=== PATIENT | female | born 1950 | race Caucasian/White ===

== ENCOUNTER 2020-11-01 12:31 | Outpatient (REF) | payer MEDICARE, SELFPAY ==
--- NOTE | ~2020-11-01 | XR_ITS ---
EXAMINATION: XR CHEST CLINICAL INFORMATION: R05 - Cough COMPARISON: Chest radiographs 07/28/2018, 07/16/2018 TECHNIQUE: 2 views of the chest were obtained. FINDINGS: There is subtle airspace opacity right upper perihilar region suspicious for early infiltrate. There is no lobar or segmental airspace consolidation. The heart is normal in size and the vascularity is normal. The costophrenic sulci are clear. No effusion. The hilar and mediastinal contours are normal. No visible acute bony abnormality. XR/XR chest 2V IMPRESSION: Subtle airspace opacity upper right perihilar region suspicious for early infiltrate. No effusion.
[2020-11-01 14:03] LABS: Basophils Percent Auto 0.2 % (0-2); Hematocrit 40.7 % (37-47); Hemoglobin 13.4 g/dl (12.0-16.0); Imm Gran Abs Auto 0.05 X10*3/uL (0.00-0.03); Imm Gran Pct Auto 0.5 % (0.0-0.4); Lymphocytes Absolute Auto 0.4 X10*3/uL (1.2-4.9); Lymphocytes Percent Auto 4.6 % (20-40); MANUAL DIFF FLAG SCAN; Mean Corpuscular HGB Conc 32.9 g/dl (31.0-35.0); Mean Corpuscular Volume 97.1 fL (80-98); Mean Platelet Volume 8.6 fL (9.4-12.3); Monocytes Absolute Auto 0.4 X10*3/uL (0.1-1.2); Monocytes Percent Auto 3.8 % (2-11); Neutrophils Absolute Auto 8.8 X10*3/uL (2.0-8.3); Neutrophils Percent Auto 90.9 % (45-73); Platelet Count 422 X10*3/uL (160-400); Red Blood Count 4.19 X10*6/uL (4.20-5.50); Red Cell Distribution Width 12.6 % (11.0-16.0); SCAN SMEAR FLAG 1; White Blood Count 9.7 X10*3/uL (4.8-10.8)
[2020-11-01 14:23] LABS: SLIDE REVIEW VERIFIED
[2020-11-01 14:28] LABS: D Dimer < 200 NG/ML
[2020-11-01 14:35] LABS: Alanine Aminotransferase 18 U/L (0-31); Albumin Level 4.5 g/dL (3.5-5.0); Alkaline Phosphatase 64 U/L (39-117); Anion Gap 17 (12-20); Aspartate Amino Transferase 18 U/L (5-31); Bilirubin Total 0.2 mg/dL (0.0-1.0); Blood Urea Nitrogen 11 mg/dL (9-16); Calcium 9.7 mg/dL (8.4-10.2); Carbon Dioxide 24 mmol/L (22-29); Chloride 102 mmol/L (96-108); Estimated Glomerular Filt Rate > 60; Glucose Random 197 mg/dL (60-115); Potassium 4.6 mmol/L (3.3-5.1); Sodium 138 mmol/L (135-145); Total Protein 7.1 g/dL (6.5-8.0)
== END 2020-11-01 12:32 | disposition home or self-care (01) ==
LOC: HO.WFDLDS 12:31
PROVIDERS: Visit Provider Family Medicine
DX: Z00.00 Encounter for general adult medical examination without abnormal findings (principal); Z20.822 Contact with and (suspected) exposure to COVID-19; R06.02 Shortness of breath; R05 Cough
CPT/HCPCS: 36415; 71046; 80053; 85025; 85379; U0003; U0005

== ENCOUNTER 2021-07-11 16:16 | Outpatient (REF) | payer MEDICARE, SELFPAY ==
--- NOTE | ~2021-07-11 | XR_ITS ---
EXAMINATION: XR CHEST 2 VIEWS CLINICAL INFORMATION: COPD. COMPARISON: Prior chest radiographs, most recently 11/01/2020; prior chest CT examinations, most recently 05/26/2018.. TECHNIQUE: Frontal and lateral views of the chest were obtained. FINDINGS: The heart, great vessels, pulmonary vasculature and mediastinum are normal. A left pericardial fat pad is redemonstrated. The lungs show no focal infiltrate, effusion or pneumothorax. There is no acute osseous abnormality. There are right upper quadrant surgical clips. XR/XR chest 2V IMPRESSION: No active cardiopulmonary disease.
== END 2021-07-11 16:17 | disposition home or self-care (01) ==
LOC: HO.XRAY 16:16
PROVIDERS: Absent Provider Family Medicine; PCP Family Medicine; Visit Provider Hospitalist
DX: J44.9 Chronic obstructive pulmonary disease, unspecified (principal); R06.02 Shortness of breath
CPT/HCPCS: 71046

== ENCOUNTER 2021-07-13 19:19 | Emergency (ER) | payer MEDICARE, SELFPAY ==
--- NOTE | 2021-07-13 | ECG_ITS ---
Test Reason : tachycardia Blood Pressure : / mmHG Vent. Rate : 119 BPM Atrial Rate : 119 BPM P-R Int : 140 ms QRS Dur : 076 ms QT Int : 312 ms P-R-T Axes : 062 010 052 degrees QTc Int : 438 ms Sinus tachycardia with occasional Premature ventricular complexes Possible Inferior infarct , age undetermined Cannot rule out Anterior infarct , age undetermined Abnormal ECG No previous ECGs available Referred By: Generic ED Physician Electronically Signed By:DMOENIC RODRIGEZ
--- NOTE | ~2021-07-13 | XR_ITS ---
EXAMINATION: XR CHEST CLINICAL INFORMATION: Fever. COMPARISON: Chest regressed dated 07/11/2021. TECHNIQUE: 2 views of the chest were obtained. FINDINGS: No airspace consolidation. No pleural effusion or pneumothorax. Stable cardiomediastinal silhouette. Right upper quadrant surgical clips. XR/XR chest 2V IMPRESSION: No acute cardiopulmonary findings.
[2021-07-13 19:43] VITALS: BP 150/90; PULSE 124; RESP 20; TEMP 37.2; O2SAT 97; BMI 23.0
[2021-07-13 20:49] LABS: COVID-19 Test Negative (Negative); IDNOW Serial# 08D9AD1C; Influenza A Negative (Negative); Influenza B2 Negative (Negative)
--- NOTE | 2021-07-13 20:54 | ED.FEVER ---
HPI - Fever General Chief Complaint: Fever Stated Complaint: fever Time Seen by Provider: 07/13/21 20:34 Source: patient and family Mode of arrival: ambulatory Limitations: no limitations History of Present Illness HPI Narrative: 70 yo female with hx of bronchitis since 06/18 was on 2 rounds of 10 days of prednisone and 2 courses of zpak she notes tonight she felt a head carmona as well as her heart racing, had a chest xray on which was normal. She finished her zpak yesterday. She checked her temp it was 100.3. This did happen after she completed a duoneb. MD elicited complaint: fever Pertinent past history: other (on 2 courses of 10 days of prednisone) Onset (ago): hour(s) (1) Context: recent antibiotic use and on immunosuppressant(s) Exacerbating factors: other (duoneb) Relieving factors: other (did take advil about almost 4 hours ago ) Associated symptoms: headache and other (head carmona facial flushing heart racing) Treatments prior to arrival fever: other (duoneb, advil) Related Data Home Medications Medication Instructions Recorded Confirmed albuterol sulfate 90 mcg/actuation INHALATION 01/31/20 aerosol inhaler cetirizine 10 mg capsule (Zyrtec) mg PO DAILY cap 01/31/20 fluticasone propionate 110 2 puff INHALATION BID 07/11/21 mcg/actuation HFA aerosol inhaler (Flovent HFA) Previous Rx's Medication Instructions Recorded ipratropium 0.5 mg-albuterol 3 mg 3 ml INHALATION Q4-6H PRN #180 ml 06/26/21 (2.5 mg base)/3 mL nebulization soln Allergies Allergy/AdvReac Type Severity Reaction Status Date / Time No Known Allergies Allergy Verified 07/11/21 15:36 [No Known Allergies*] Cats Allergy Mild aggrevates Uncoded 07/11/21 15:36 asthma Dust Allergy Mild cogestion Uncoded 07/11/21 15:36 Mold Allergy Mild allergy Uncoded 07/11/21 15:36 Trees Allergy Mild asthma Uncoded 07/11/21 15:36 aggravated Review of Systems Review of Systems: Constitutional : No Weight loss, pos Fever, No Chills, No Fatigue, No Malaise ENT/Mouth : No sore throat, No Rhinorrhea Eyes: No Eye Pain, No Swelling, No Redness Cardiovascular : No Chest Pain, No SOB, No Dyspnea on Exertion, No Orthopnea, No Edema, pos Palpitations Respiratory : No Cough, No Sputum, No Wheezing Gastrointestinal : No Nausea, No Vomiting, No Diarrhea, No Constipation, No abdominal Pain, No Hematochezia, No Melena Genitourinary : No Dysuria, No Urinary Frequency, No Hematuria, Musculoskeletal : No joint pain, No Myalgias, No Joint Swelling Skin : No Skin Lesions, No rash, pos facial flushing Neuro : No Weakness, No Numbness, No Dizziness, pos Headache Psych : No Anxiety/Panic, No Depression Heme/Lymph: No Bruising, No Bleeding,No Lymphadenopathy Endocrine : No Polyuria, No Polydipsia All other systems reviewed and are negative PMFSH Past Medical History Attestation statement: The following information was validated with the patient. Medical History Chronic GERD Hypertension Seasonal allergies Social History Social History Housing: House Patient Tobacco Use Status: Never used Tobacco Advance Directives: No Advance Directives Information Provided: No Current occupational status: retired Physical Exam Vital Signs: Vital Signs: Last Vital Signs Temp 98.3 F 07/13/21 21:17 Pulse 92 07/13/21 21:17 Resp 16 07/13/21 21:17 BP 150/79 H 07/13/21 21:17 Pulse Ox 95 07/13/21 21:17 BMI result Body Mass Index 23.0 Appearance: Alert. Oriented X3. No acute distress. Anxious Eyes: Pupils equal, round and reactive to light. ENT: Pharynx normal. Neck: Normal inspection. Neck supple. CVS: tachycardic heart rate and rhythm. Pulses normal. Respiratory: No respiratory distress. Breath sounds normal. Abdomen: Soft and non-tender. Skin: Skin warm and dry. Normal skin color. Normal skin turgor. Extremities: No lower extremity edema. No calf ttp Neuro: Oriented X 3. No motor deficit. No sensory deficit. Course Course Course Narrative: negative workup in the ED neg WBC count, neg CRP neg CXR and UA stable for DC feels much better MDM - Fever MDM Narrative Medical decision making narrative: 70 yo female hx of bronchitis and HTN just completed two rounds of 10 day prednisone and zpak for bronchitis by PCP since 06/18 with some relief tonight after duoneb felt head carmona, facial flushing, checked temp 100.3. Had normal CXR. Notes that she has not had a productive cough nor did she have fevers during the treatment ?response to neb vs prednisone. At this time will need labs, EKG, CXR, IVF, flu/COVID swab. Dispo per results and findings. Possible infection vs medication reaction. Lab Data Result diagrams: 07/13/21 21:15 07/13/21 21:15 Labs: Lab Results 07/13/21 07/13/21 07/13/21 Range/Units 20:04 20:04 21:15 WBC 8.8 (4.8-10.8) X10*3/uL RBC 4.32 (4.20-5.50) X10*6/uL Hgb 14.2 (12.0-16.0) g/dl Hct 42.7 (37.0-47.0) % MCV 98.8 H (80.0-98.0) fL MCH 32.9 (27.0-33.0) pg MCHC 33.3 (31.0-35.0) g/dl RDW 11.9 (11.0-16.0) % Plt Count 327 (160-400) X10*3/uL MPV 8.3 L (9.4-12.3) fL Immature Gran % (Auto) 0.7 H (0.0-0.4) % Neut % (Auto) 79.2 H (45-73) % Lymph % (Auto) 12.7 L (20-40) % [place] % (Auto) 7.3 (2-11) % Eos % (Auto) 0.0 (0-4) % Baso % (Auto) 0.1 (0-2) % Lymph # (Auto) 1.1 L (1.2-4.9) X10*3/uL [place] # (Auto) 0.6 (0.1-1.2) X10*3/uL Eos # (Auto) 0.0 (0.0-0.4) X10*3/uL Baso # (Auto) 0.0 (0.0-0.2) X10*3/uL Abs Immat Gran (auto) 0.06 H (0.00-0.03) X10*3/uL Absolute Neuts (auto) 7.0 (2.0-8.3) x10*3/uL Absolute Nucleated RBC 0.000 (0.0-0.012) X10*3/uL Nucleated RBC % (auto) 0.0 (0.0-0.2) /100WBC Sodium (135-145) mmol/L Potassium (3.3-5.1) mmol/L Chloride (96-108) mmol/L Carbon Dioxide (22-29) mmol/L Anion Gap (12-20) BUN (9-16) mg/dL Creatinine (0.5-1.4) mg/dL Estim Creat Clear Calc Estimated GFR Random Glucose (60-115) mg/dL Lactic Acid (0.5-2.0) mmol/L Calcium (8.4-10.2) mg/dL Magnesium (1.6-2.6) mg/dL Total Bilirubin (0.0-1.0) mg/dL Direct Bilirubin (0.0-0.5) mg/dL AST (5-31) U/L ALT (0-31) U/L Alkaline Phosphatase (39-117) U/L Troponin I High Sens (<3.5-17.0) ng/L C-Reactive Protein (< or = 0.50) mg/dL Total Protein (6.5-8.0) g/dL Albumin (3.5-5.0) g/dL Urine Color Urine Appearance Urine pH (5.0-8.0) Ur Specific Cha[place]in (1.005-1.025) Urine Protein (NEG-TRACE) MG/DL Urine Glucose (UA) (NEG) MG/DL Urine Ketones (NEG) MG/DL Urine Blood (NEG) Urine Nitrite (NEG) Ur Leukocyte Esterase (NEG) Urine RBC (0) /HPF Urine WBC (0-4) /HPF Ur Squamous Epith Cells /LPF Urine Bacteria /LPF COVID-19 (KAREN) Negative (Negative) COVID-19 Clin Com See Note Influenza Type A (YAHIR) Negative (Negative) Influenza Type B (YAHIR) Negative (Negative) Influenza A & B Note See Note 03/07/13/21 07/13/21 Range/Units 21:15 21:15 21:15 WBC (4.8-10.8) X10*3/uL RBC (4.20-5.50) X10*6/uL Hgb (12.0-16.0) g/dl Hct (37.0-47.0) % MCV (80.0-98.0) fL MCH (27.0-33.0) pg MCHC (31.0-35.0) g/dl RDW (11.0-16.0) % Plt Count (160-400) X10*3/uL MPV (9.4-12.3) fL Immature Gran % (Auto) (0.0-0.4) % Neut % (Auto) (45-73) % Lymph % (Auto) (20-40) % [place] % (Auto) (2-11) % Eos % (Auto) (0-4) % Baso % (Auto) (0-2) % Lymph # (Auto) (1.2-4.9) X10*3/uL [place] # (Auto) (0.1-1.2) X10*3/uL Eos # (Auto) (0.0-0.4) X10*3/uL Baso # (Auto) (0.0-0.2) X10*3/uL Abs Immat Gran (auto) (0.00-0.03) X10*3/uL Absolute Neuts (auto) (2.0-8.3) x10*3/uL Absolute Nucleated RBC (0.0-0.012) X10*3/uL Nucleated RBC % (auto) (0.0-0.2) /100WBC Sodium 137 (135-145) mmol/L Potassium 4.9 (3.3-5.1) mmol/L Chloride 99 (96-108) mmol/L Carbon Dioxide 27 (22-29) mmol/L Anion Gap 16 (12-20) BUN 15 (9-16) mg/dL Creatinine 0.76 (0.5-1.4) mg/dL Estim Creat Clear Calc 56.1 Estimated GFR > 60 Random Glucose 106 (60-115) mg/dL Lactic Acid 1.4 (0.5-2.0) mmol/L Calcium 9.9 (8.4-10.2) mg/dL Magnesium 2.3 (1.6-2.6) mg/dL Total Bilirubin 0.3 (0.0-1.0) mg/dL Direct Bilirubin < 0.2 (0.0-0.5) mg/dL AST 26 D (5-31) U/L ALT 35 H (0-31) U/L Alkaline Phosphatase 43 D (39-117) U/L Troponin I High Sens < 3.5 (<3.5-17.0) ng/L C-Reactive Protein 0.05 (< or = 0.50) mg/dL Total Protein 7.2 (6.5-8.0) g/dL Albumin 4.8 (3.5-5.0) g/dL Urine Color Urine Appearance Urine pH (5.0-8.0) Ur Specific [place] (1.005-1.025) Urine Protein (NEG-TRACE) MG/DL Urine Glucose (UA) (NEG) MG/DL Urine Ketones (NEG) MG/DL Urine Blood (NEG) Urine Nitrite (NEG) Ur Leukocyte Esterase (NEG) Urine RBC (0) /HPF Urine WBC (0-4) /HPF Ur Squamous Epith Cells /LPF Urine Bacteria /LPF COVID-19 (KAREN) (Negative) COVID-19 Clin Com Influenza Type A (YAHIR) (Negative) Influenza Type B (YAHIR) (Negative) Influenza A & B Note 07/13/21 Range/Units 21:15 WBC (4.8-10.8) X10*3/uL RBC (4.20-5.50) X10*6/uL Hgb (12.0-16.0) g/dl Hct (37.0-47.0) % MCV (80.0-98.0) fL MCH (27.0-33.0) pg MCHC (31.0-35.0) g/dl RDW (11.0-16.0) % Plt Count (160-400) X10*3/uL MPV (9.4-12.3) fL Immature Gran % (Auto) (0.0-0.4) % Neut % (Auto) (45-73) % Lymph % (Auto) (20-40) % [place] % (Auto) (2-11) % Eos % (Auto) (0-4) % Baso % (Auto) (0-2) % Lymph # (Auto) (1.2-4.9) X10*3/uL [place] # (Auto) (0.1-1.2) X10*3/uL Eos # (Auto) (0.0-0.4) X10*3/uL Baso # (Auto) (0.0-0.2) X10*3/uL Abs Immat Gran (auto) (0.00-0.03) X10*3/uL Absolute Neuts (auto) (2.0-8.3) x10*3/uL Absolute Nucleated RBC (0.0-0.012) X10*3/uL Nucleated RBC % (auto) (0.0-0.2) /100WBC Sodium (135-145) mmol/L Potassium (3.3-5.1) mmol/L Chloride (96-108) mmol/L Carbon Dioxide (22-29) mmol/L Anion Gap (12-20) BUN (9-16) mg/dL Creatinine (0.5-1.4) mg/dL Estim Creat Clear Calc Estimated GFR Random Glucose (60-115) mg/dL Lactic Acid (0.5-2.0) mmol/L Calcium (8.4-10.2) mg/dL Magnesium (1.6-2.6) mg/dL Total Bilirubin (0.0-1.0) mg/dL Direct Bilirubin (0.0-0.5) mg/dL AST (5-31) U/L ALT (0-31) U/L Alkaline Phosphatase (39-117) U/L Troponin I High Sens (<3.5-17.0) ng/L C-Reactive Protein (< or = 0.50) mg/dL Total Protein (6.5-8.0) g/dL Albumin (3.5-5.0) g/dL Urine Color YELLOW Urine Appearance CLEAR Urine pH 6.0 (5.0-8.0) Ur Specific [place] 1.010 (1.005-1.025) Urine Protein NEG (NEG-TRACE) MG/DL Urine Glucose (UA) NEG (NEG) MG/DL Urine Ketones NEG (NEG) MG/DL Urine Blood TRACE (NEG) Urine Nitrite NEG (NEG) Ur Leukocyte Esterase NEG (NEG) Urine RBC 1-4 (0) /HPF Urine WBC 0 (0-4) /HPF Ur Squamous Epith Cells TRACE /LPF Urine Bacteria NONE /LPF COVID-19 (KAREN) (Negative) COVID-19 Clin Com Influenza Type A (YAHIR) (Negative) Influenza Type B (YAHIR) (Negative) Influenza A & B Note ECG Data ECG #1: Attestation: I personally reviewed and interpreted this ECG as follows: ECG interpretation date: 07/13/21 ECG interpretation time: 21:07 Interpretation: Rate: 119 Rhythm: sinus tachycardia with occ PVCs Sparks: left Normal P waves. Normal VENITA. Normal QRS complex. ST T wave : inverted V1 t wave, no MEMO qTC: normal prior studies: no acute ischemia The study has been interpreted contemporaneously by me. Discharge Plan Discharge Clinical Impression: Fever Qualifiers: Fever type: unspecified Qualified Code(s): R50.9 - Fever, unspecified Patient Disposition: Home, Self-Care Instructions: Fever in Adults (ED) Additional Instructions: return to ED for any worsening symptoms or concerns chest xray, WBC, urine, CRP all negative, you do have blood cultures pending. this was possibly a combination of recent medications used. please follow up with your medical support assistant. Prescriptions: No Action ipratropium-albuterol 0.5 mg-3 mg(2.5 mg base)/3 mL solution for nebulization 3 ml inhalation Q4-6H PRN (Reason: shortness of breath or wheezing) Qty: 180 0RF albuterol sulfate 90 mcg/actuation HFA aerosol inhaler inhalation 0RF Zyrtec 10 mg capsule PO DAILY 0RF Flovent HFA 110 mcg/actuation HFA aerosol inhaler 2 puff inhalation BID 0RF
[2021-07-13 21:17] VITALS: BP 150/79; PULSE 92; RESP 16; TEMP 36.8; O2SAT 95
[2021-07-13 21:18] LABS: MANUAL DIFF FLAG NO
[2021-07-13 21:24] LABS: Appearance Urine CLEAR; Color Urine YELLOW; Glucose Urine UA NEG (NEG); Leukocyte Esterase Urine NEG (NEG); Nitrite Urine NEG (NEG); UACC Culture Trigger NO; Urine Blood TRACE (NEG); Urine Ketones NEG (NEG); Urine Protein NEG (NEG-TRACE)
[2021-07-13 21:32] LABS: Basophils Percent Auto 0.1 % (0-2); Hematocrit 42.7 % (37.0-47.0); Hemoglobin 14.2 g/dl (12.0-16.0); Imm Gran Abs Auto 0.06 X10*3/uL (0.00-0.03); Imm Gran Pct Auto 0.7 % (0.0-0.4); Lactic Acid 1.4 mmol/L (0.5-2.0); Lymphocytes Absolute Auto 1.1 X10*3/uL (1.2-4.9); Lymphocytes Percent Auto 12.7 % (20-40); Mean Corpuscular HGB Conc 33.3 g/dl (31.0-35.0); Mean Corpuscular Hemoglobin 32.9 pg (27.0-33.0); Mean Corpuscular Volume 98.8 fL (80.0-98.0); Mean Platelet Volume 8.3 fL (9.4-12.3); Monocytes Absolute Auto 0.6 X10*3/uL (0.1-1.2); Monocytes Percent Auto 7.3 % (2-11); Neutrophils Percent Auto 79.2 % (45-73); Platelet Count 327 X10*3/uL (160-400); Red Blood Count 4.32 X10*6/uL (4.20-5.50); Red Cell Distribution Width 11.9 % (11.0-16.0); White Blood Count 8.8 X10*3/uL (4.8-10.8)
[2021-07-13 21:36] LABS: Alanine Aminotransferase 35 U/L (0-31); Albumin Level 4.8 g/dL (3.5-5.0); Alkaline Phosphatase 43 U/L (39-117); Anion Gap 16 (12-20); Aspartate Amino Transferase 26 U/L (5-31); Bilirubin Direct < 0.2 mg/dL (0.0-0.5); Bilirubin Total 0.3 mg/dL (0.0-1.0); Blood Urea Nitrogen 15 mg/dL (9-16); C Reactive Protein 0.05 mg/dL (< or = 0.50); Calcium 9.9 mg/dL (8.4-10.2); Carbon Dioxide 27 mmol/L (22-29); Chloride 99 mmol/L (96-108); Creatinine Clr Calc Pharmacy 56.1; Estimated Glomerular Filt Rate > 60; Glucose Random 106 mg/dL (60-115); Magnesium 2.3 mg/dL (1.6-2.6); Potassium 4.9 mmol/L (3.3-5.1); Sodium 137 mmol/L (135-145); Total Protein 7.2 g/dL (6.5-8.0)
[2021-07-13 21:38] LABS: Troponin-I High Sensitivity < 3.5 ng/L (<3.5-17.0)
[2021-07-13 21:47] LABS: Squamous Epithelial Cell Urine TRACE /LPF; WBC Urine 0 /HPF (0-4)
[2021-07-13] MEDS: 0.9 % Sodium Chloride 1,000 ML 999 ML IV (21:55)
--- NOTE | 2021-07-13 22:37 | PC.NURSE ---
I assume nursing care of Callie on her arrival to bed 12 from the waiting room. She presents for evaluation of an episode of fever, facial flushing, feeling overheated and diaphoresis. She states the symptoms resolved while in the waiting room and I feel totally fine now. She is alert, oriented x 3, speech clear and appropriate, she makes eye contact with RN. Respirations are non-labored, she denies SOb, she speaks in full sentences, no cyanosis, room air sat's WNL. She denies any pain. She has ambulated to and from the bathroom independently and with steady gait and provided a UA without difficulty. IV access was obtained and IVF's were initiated. The pt has been discharged prior to the completion of NSbolus and states that she does not wish to wait for the 1L NS bolus to complete. She received approximately 500cc. She verbalized an understanding of all DC orders and ambulated out of the ED independently and with steady gait, with her .
== END 2021-07-13 22:42 | disposition home or self-care (01) ==
PROVIDERS: Emergency Provider Emergency Medicine; PCP Family Medicine
DX: R50.9 Fever, unspecified (principal); R00.0 Tachycardia, unspecified; I10 Essential (primary) hypertension; Z20.822 Contact with and (suspected) exposure to COVID-19
CPT/HCPCS: 36415; 71046; 80048; 80076; 81001; 83605; 83735; 84484; 85025; 86140; 87040; 87502; 87635; 93005; 96360; 99284; 99285

== ENCOUNTER 2021-12-17 14:28 | Outpatient (REF) | payer MEDICARE, SELFPAY ==
[2021-12-17 16:00] LABS: Influenza A PCR NEGATIVE (Negative); Influenza B PCR NEGATIVE (Negative); Resp Syncy Virus RNA Qual PCR NEGATIVE (Negative); SARS COV2 PCR INHOUSE NEGATIVE (Negative)
== END 2021-12-17 14:29 | disposition home or self-care (01) ==
LOC: HO.LNP 14:28
PROVIDERS: Visit Provider Nurse Practitioner Family
DX: Z20.822 Contact with and (suspected) exposure to COVID-19 (principal); R09.89 Other specified symptoms and signs involving the circulatory and respiratory systems
CPT/HCPCS: 0241U

== ENCOUNTER 2023-01-29 15:42 | Outpatient (AMB) | payer MEDICARE, SELFPAY ==
[2023-01-29 15:44] VITALS: BP 121/64; PULSE 93; O2SAT 99; BMI 21.5
--- NOTE | 2023-01-29 15:44 | A.OFFPC_ITS ---
Vital Signs 01/29/23 15:44 Height 5 ft 3 in Weight 121 lb 4 oz BMI 21.5 BP 121/64 Blood Pressure Location Lt brachial Position Sitting Pulse 93 Pulse Oximetry (%) 99 Oxygen Delivery Method Room Air Intake Visit Reasons: F/U HTN Intake Note: Patient is here to follow up on hypertension. Is last menstrual period known: Yes Allergies No Known Allergies [No Known Allergies*] Allergy (Verified 01/29/23 15:49) Cats Allergy (Mild, Uncoded 01/29/23 15:49) aggrevates asthma Dust Allergy (Mild, Uncoded 01/29/23 15:49) cogestion Mold Allergy (Mild, Uncoded 01/29/23 15:49) allergy Trees Allergy (Mild, Uncoded 01/29/23 15:49) asthma aggravated Tobacco use date assessed: 01/29/23 Fall risk assessment: No Falls in past year Last assessed Fall Risk: 01/29/23 Dental Screening Dental Screen Date: 01/29/23 Did you have a dental visit in the last 12 months?: Yes Did you have a dental problem in the last 6 months where you did not have access to dental care?: No Was dental information given to patient?: Patient has dentist HPI F/U HTN HPI Details 72 y/o female presents to f/u hypertensi on. Blood pressure today 121/64. She notes she continues walking and has lost a bit of weight. She has been seeing orthopedics for her shoulders. [facility] Medical History Seasonal allergies Chronic GERD Hypertension Surgical History S/P removal of right ovary History of removal of ovarian cyst History of appendectomy History of nasal surgery History of tonsillectomy History of bilateral tubal ligation History of cholecystectomy Family History Father CHF (congestive heart failure) Mother Kidney failure Brother COPD (chronic obstructive pulmonary disease) Social History Housing: House Alcohol intake: current Alcohol intake frequency: holidays/special occasions only Patient Tobacco Use Status: Never used Tobacco e-Cigarette/Vaping Use: Never Used Second Hand Smoke Exposure: No service: No Current occupational status: retired Current occupational exposures/hazards: No Cognitive needs: No Hearing needs: No Vision needs: No Questionnaire Thrive Questionnaire Date Thrive assessed: 04/30/22 SAMUEL-7 AMB Questionnaire SAMUEL-7 Date SAMUEL - 7 assessed: 04/30/22 Source: Developed by Drs. Jignesh Ford, Sunshine Min, Adis Lopez and colleagues, with an educational tigre from [employer]. Review of Systems Const Denies chills, Denies fatigue, Denies fever(s), Denies headache(s) and Denies weakness ENT Denies dizziness and Denies headache(s) Card Denies chest pain, Denies lightheadedness, Denies dyspnea and Denies other (Palpitations) Resp Denies cough, Denies dyspnea, Denies wheezing and Denies other ( shortness of breath) Musc Denies numbness and Denies tingling Neuro Denies dizziness, Denies headache(s), Denies numbness, Denies tingling, Denies paresthesias and Denies weakness Psych Denies anxiety and Denies depression Endo Denies fatigue Aller/Immun Denies wheezing Physical exam (Primary Care) Vital Signs: Last Vital Signs Pulse 93 01/29/23 15:44 BP 121/64 01/29/23 15:44 Pulse Ox 99 01/29/23 15:44 Oxygen Delivery Method Room Air 01/29/23 15:44 BMI result Body Mass Index 21.5 Tobacco/Smoking Status: Tobacco use Status Tobacco use date assessed 01/29/23 01/29/23 15:55 Patient Tobacco Use Status Never used Tobacco 01/29/23 15:45 e-Cigarette/Vaping Use Never Used 01/29/23 15:45 Thrive Assessment: Date of Thrive Assessment Date Thrive assessed 04/30/22 01/29/23 15:45 Const General: no acute distress and well developed Nutritional Appearance: well nourished Orientation/consciousness: patient oriented x3 HENMT Head: Yes normocephalic and Yes atraumatic Eyes General: appearance normal, both eyes and all related structures Pupils: Equal, round and reactive pupils present EOM: EOMs intact bilaterally Resp Effort & Inspection: normal respiratory effort Auscultation: clear to auscultation bilaterally Cardio Rate: regular rate Rhythm: regular rhythm Heart sounds: S1 normal heart sound present, S2 normal heart sound present, no gallops, no murmurs and no rubs Neuro General: patient oriented x3 and gait normal Cranial nerves: Yes Equal, round and reactive pupils present Psych Affect: normal affect Assessment and Plan Assessment & Plan (1) Hypertension: Code(s): I10 - Essential (primary) hypertension Qualifiers: Hypertension type: essential hypertension Qualified Code(s): I10 - Essential (primary) hypertension Plan: Blood?pressure?is?controlled.??Goal?is?less?than?140/90 Continue?diet?control (2) Asthma: Code(s): J45.909 - Unspecified asthma, uncomplicated Plan: Has?had?some?flare-ups?but?currently?stable. Continue?albuterol?and?and?Ventolin BID?for?flare?ups (3) Shoulder pain: Code(s): M25.519 - Pain in unspecified shoulder Plan: Follow-up?with?ortho?as?recommended Orders: Orders Complete Blood Count Auto Diff Today Z00.00 - Encounter for general adult medical examination without abnormal findings, Z12.11 - Encounter for screening for malignant neoplasm of colon Lipid Panel Today Z00.00 - Encounter for general adult medical examination without abnormal findings, Z12.11 - Encounter for screening for malignant neoplasm of colon UA and rflx microscopic Today Z00.00 - Encounter for general adult medical examination without abnormal findings, Z12.11 - Encounter for screening for m alignant neoplasm of colon Comprehensive [place]. Panel Fast Today Z00.00 - Encounter for general adult medical examination without abnormal findings, Z12.11 - Encounter for screening for malignant neoplasm of colon Microalbumin, Random (w Creat) Today I10 - Essential (primary) hypertension, Z12.11 - Encounter for screening for malignant neoplasm of colon TSH reflex Free T4 Today Z00.00 - Encounter for general adult medical examination without abnormal findings, Z12.11 - Encounter for screening for malignant neoplasm of colon Coding Level of Care Code Est Pt Level 3 (92945) Diagnoses Essential hypertension I10 Hypertension type: essential hypertension Asthma J45.909 Shoulder pain M25.519
== END 2023-01-29 16:42 | disposition home or self-care (01) ==
PROVIDERS: PCP Family Medicine; Visit Provider Family Medicine
DX: I10 Essential (primary) hypertension (principal); J45.909 Unspecified asthma, uncomplicated; M25.519 Pain in unspecified shoulder
CPT/HCPCS: 99213

== ENCOUNTER 2023-02-04 09:13 | Outpatient (REF) | payer MEDICARE, SELFPAY | END 2023-02-04 09:14 | disposition home or self-care (01) | LOC: HO.WFDLDS 09:13 | PROVIDERS: Visit Provider Family Medicine | DX: Z00.00 Encounter for general adult medical examination without abnormal findings (principal); I10 Essential (primary) hypertension | CPT/HCPCS: 36415; 80053; 80061; 81003; 82043; 82570; 84443; 85025 ==

== ENCOUNTER 2024-01-06 11:23 | Outpatient (AMB) | payer MEDICARE, SELFPAY ==
--- NOTE | 2024-01-06 11:27 | AM.OFFWIN_ITS ---
Intake Vital Signs 01/06/24 11:34 01/06/24 11:59 Height 5 ft 3 in Weight 124 lb 8 oz BMI 22.1 BP 98/64 Blood Pressure Location Lt brachial Position Sitting Respiration 14 Pulse 107 H 90 Pulse Source Pulse Oximeter Auscultation Pulse Oximetry (%) 97 Oxygen Delivery Method Room Air Intake Visit Reasons: est/ asthma symptoms Intake Note: patient is here to follow up on asthma and refills on med for asthma. Patient Tobacco Use Status: Never used Tobacco Allergies No Known Allergies [No Known Allergies*] Allergy (Verified 01/06/24 11:30) Cats Allergy (Mild, Uncoded 02/10/23 15:12) aggrevates asthma Dust Allergy (Mild, Uncoded 02/10/23 15:12) cogestion Mold Allergy (Mild, Uncoded 02/10/23 15:12) allergy Trees Allergy (Mild, Uncoded 02/10/23 15:12) asthma aggravated Medication List - Last Reconciled 01/06/24 [facility] albuterol sulfate 90 mcg/actuation inhalation fluticasone propionate 110 mcg/actuation (Flovent HFA) 2 puffs inhalation BID 30 days ipratropium-albuterol 0.5 mg-3 mg(2.5 mg base)/3 mL 3 mL inhalation Q4-6H PRN Do you need a note to return to daycare/school/sports/work: No HPI HPI Comments History of Present Illness Details 73-year-old female here today with her h usband with a need for updated prescriptions for her asthma medication. She is active with pulmonology. At the time her asthma symptoms are well controlled. She will need to use a pharmacy in [place] to fill her prescriptions due to cost. She just needs the new prescriptions updated for a 90 day supply and printed so that she may fill t [facility] [place]. Exam Awake alert oriented, no acute distress Regular rate and rhythm, occasional PVCs Lung sounds clear to auscultation bilat Plan Prescriptions printed and handed to her today for her to have filled in [place]. Advised for her to continue to follow up with her care team. [facility] Medical History (Updated 01/06/24 @ 11:59 by NASEEM Herrera) Seasonal allergies Chronic GERD Hypertension Surgical History (Updated 02/10/23 @ 15:12 by Magali De La Rosa) S/P removal of right ovary History of removal of ovarian cyst History of appendectomy History of nasal surgery History of tonsillectomy History of bilateral tubal ligation History of cholecystectomy Family History (System 02/10/23 @ 15:12 by Magali De La Rosa) Father CHF (congestive heart failure) Mother Kidney failure Brother COPD (chronic obstructive pulmonary disease) Social History (System 02/10/23 @ 15:12 by Magali De La Rosa) Housing: House Alcohol intake: current Alcohol intake frequency: holidays/special occasions only Patient Tobacco Use Status: Never used Tobacco e-Cigarette/Vaping Use: Never Used Second Hand Smoke Exposure: No service: No Current occupational status: retired Current occupational exposures/hazards: No Cognitive needs: No Hearing needs: No Vision needs: No Physical Exam Vital Signs: Last Vital Signs Pulse 107 H 01/06/24 11:34 Resp 14 01/06/24 11:34 BP 98/64 01/06/24 11:34 Pulse Ox 97 01/06/24 11:34 Oxygen Delivery Method Room Air 01/06/24 11:34 BMI result Body Mass Index 22.1 Assessment & Plan Assessment & Plan (1) Asthma: Code(s): J45.909 - Unspecified asthma, uncomplicated Qualifiers: Asthma severity: moderate Asthma persistence: persistent Asthma complication type: uncomplicated Qualified Code(s): J45.40 - Moderate persistent asthma, uncomplicated Plan: . Plan . Medications: New prednisone 20 mg PO DAILY 90 days 30 tabs 3RF J45.909 - Unspecified asthma, uncomplicated Changed From albuterol sulfate 90 mcg/actuation inhalation J45.909 - Unspecified asthma, uncomplicated To albuterol sulfate 90 mcg/actuation 2 puffs inhalation Q6H 90 days 25.5 grams 3RF J45.909 - Unspecified asthma, uncomplicated From fluticasone propionate 110 mcg/actuation (Flovent HFA) 2 puffs inhalation BID 30 days 12 grams 3RF J45.909 - Unspecified asthma, uncomplicated To fluticasone propionate 110 mcg/actuation 2 puffs inhalation BID 90 days 36 grams 3RF J45.909 - Unspecified asthma, uncomplicated Coding Level of Care Code Est Pt Level 3 (01335) Diagnoses Moderate persistent asthma without complication J45.40 Asthma severity: moderate Asthma persistence: persistent Asthma complication type: uncomplicated
[2024-01-06 11:34] VITALS: BP 98/64; PULSE 107; RESP 14; O2SAT 97; BMI 22.1
[2024-01-06 11:59] VITALS: PULSE 90
== END 2024-01-06 11:57 | disposition home or self-care (01) ==
LOC: HO.HMGWIW 11:23
PROVIDERS: PCP Family Medicine
DX: J45.40 Moderate persistent asthma, uncomplicated (principal)
CPT/HCPCS: 99213

== ENCOUNTER 2024-03-02 11:52 | Outpatient (AMB) | payer MEDICARE, SELFPAY ==
--- NOTE | 2024-03-02 11:55 | A.OFFPC_ITS ---
Vital Signs 03/02/24 12:03 Height 5 ft 3 in Weight 127 lb 8 oz BMI 22.6 BP 126/70 Blood Pressure Location Lt brachial Position Sitting Respiration 14 Pulse 87 Pulse Source Pulse Oximeter Temp 98.2 F Temp Source Oral Pulse Oximetry (%) 96 Oxygen Delivery Method Room Air Intake Visit Reasons: Med Review Intake Note: med review Allergies No Known Allergies [No Known Allergies*] Allergy (Verified 03/02/24 11:57) Cats Allergy (Mild, Uncoded 02/10/23 15:12) aggrevates asthma Dust Allergy (Mild, Uncoded 02/10/23 15:12) cogestion Mold Allergy (Mild, Uncoded 02/10/23 15:12) allergy Trees Allergy (Mild, Uncoded 02/10/23 15:12) asthma aggravated Tobacco use date assessed: 01/29/23 Dental Screening Dental Screen Date: 01/29/23 HPI Med Review HPI Details 73 y/o female presents to f/u chronic co nditions. Blood pressure today 126/70, 87p. PFSH Medical History (Updated 03/02/24 @ 12:20 by Jaime Lopez) Seasonal allergies Chronic GERD Hypertension Surgical History (Updated 02/10/23 @ 15:12 by Magali De La Rosa) S/P removal of right ovary History of removal of ovarian cyst History of appendectomy History of nasal surgery History of tonsillectomy History of bilateral tubal ligation History of cholecystectomy Family History (System 02/10/23 @ 15:12 by Magali De La Rosa) Father CHF (congestive heart failure) Mother Kidney failure Brother COPD (chronic obstructive pulmonary disease) Social History (System 02/10/23 @ 15:12 by Magali De La Rosa) Housing: House Alcohol intake: current Alcohol intake frequency: holidays/special occasions only Patient Tobacco Use Status: Never used Tobacco e-Cigarette/Vaping Use: Never Used Second Hand Smoke Exposure: No service: No Current occupational status: retired Current occupational exposures/hazards: No Cognitive needs: No Hearing needs: No Vision needs: No Questionnaire Thrive Questionnaire Date Thrive assessed: 04/30/22 I am a: Patient What is your living situation today?: I have a steady place to live Within the past 12 months, did the food you bought not last and you didn't have the money to get more?: Never true Within the past 12 months, did you worry whether your food would run out before you got money to buy more?: I choose not to answer this question Do you have trouble paying for medicines?: No Do you have trouble getting transportation to medical appointments?: I choose not to answer this question Do you have trouble paying your heating and electricity bill?: I choose not to answer this question Do you have trouble taking care of your child, family member or friend?: I choose not to answer this question Do you have trouble with day-to-day activities such as bathing, preparing meals, shopping, managing finances, etc.?: I choose not to answer this question Are you currently unemployed and looking for a job?: No Are you interested in more education?: I choose not to answer this question Please select the resources that you would like help with: None Currently or been in a relationship where the following occur: I choose not to answer THRIVE Score: 0 AUDIT C Alcohol Use Questionnaire (AUDIT-C) 1. How often do you have a drink containing alcohol?: 2-4 times a month 2. How many drinks containing alcohol do you have on a typical day when you are drinking?: 1 or 2 3. How often do you have six or more drinks on one occasion?: Never Total Score: 2 SAMUEL-7 AMB Questionnaire SAMUEL-7 Date SAMUEL - 7 assessed: 04/30/22 Feeling nervous, anxious, or on edge: 0 = Not at all Not being able to stop or control worryin = Not at all Worrying too much about different things: 0 = Not at all Trouble relaxin = Not at all Being so restless that it is hard to sit still: 0 = Not at all Becoming easily annoyed or irritable: 0 = Not at all Feeling afraid as if something awful might happen: 0 = Not at all Total SAMUEL-7 score (0-4 normal; 5-9 mild; 10-14 moderate; 15-21 severe): 0 Source: Developed by Drs. Jignesh Ford, Sunshine Min, Adis Lopez and colleagues, with an educational tigre from [employer]. Review of Systems Const Denies chills, Denies fatigue, Denies fever(s), Denies headache(s) and Denies weakness ENT Denies dizziness and Denies headache(s) Card Denies dyspnea Resp Denies cough, Denies dyspnea, Denies wheezing and Denies other (shortness of breath) Musc Denies numbness and Denies tingling Neuro Denies dizziness, Denies headache(s), Denies numbness, Denies tingling and Denies weakness Psych Denies anxiety and Denies depression Endo Denies fatigue Aller/Immun Denies wheezing Physical exam (Primary Care) Vital Signs: Last Vital Signs Temp 98.2 F 03/02/24 12:03 Pulse 87 03/02/24 12:03 Resp 14 03/02/24 12:03 BP 126/70 03/02/24 12:03 Pulse Ox 96 03/02/24 12:03 Oxygen Delivery Method Room Air 03/02/24 12:03 BMI result Body Mass Index 22.6 Tobacco/Smoking Status: Tobacco use Status Tobacco use date assessed 01/29/23 03/02/24 12:06 Patient Tobacco Use Status Never used Tobacco 03/02/24 12:06 e-Cigarette/Vaping Use Never Used 03/02/24 12:06 Thrive Assessment: Date of Thrive Assessment Date Thrive assessed 04/30/22 03/02/24 12:06 Currently or been in a relationship where the following occur: I choose not to answer Const General: well developed; No acute distress Nutritional Appearance: well nourished Orientation/consciousness: patient oriented x3 HENMT Head: Yes normocephalic and Yes atraumatic Eyes General: appearance normal, both eyes and all related structures Pupils: Equal, round and reactive pupils present EOM: EOMs intact bilaterally Resp Effort & Inspection: normal respiratory effort Auscultation: clear to auscultation bilaterally Cardio Rate: regular rate Rhythm: regular rhythm Heart sounds: S1 normal heart sound present, S2 normal heart sound present, no gallops, no murmurs and no rubs Neuro General: patient oriented x3 and gait normal Cranial nerves: Yes Equal, round and reactive pupils present Psych Affect: normal affect Coding Level of Care Code Est Pt Level 4 (09142) Diagnoses Moderate persistent asthma without complication J45.40 Asthma complication type: uncomplicated Asthma persistence: persistent Asthma severity: moderate Essential hypertension I10 Hypertension type: essential hypertension Immunization counseling Z71.85 Assessment & Plan Assessment & Plan (1) Asthma: Code(s): J45.909 - Unspecified asthma, uncomplicated Category: Medical Qualifiers: Asthma complication type: uncomplicated Asthma persistence: persistent Asthma severity: moderate Qualified Code(s): J45.40 - Moderate persistent asthma, uncomplicated Plan: Patient? wanted?to?review?her?asthma?medication?plan?which?was?established?by?her?pulmono logist,?DrKlaudia?Sujit He?recommends?that?during?an?exacerbation?she?start?with?fluticasone?220?mcg?b.i .d.?and?use?albuterol?inhaler?up?to?hourly?as?needed. If?not?improving?she?could?then?start?prednisone?40?mg?daily?x5?days?and?then?10 ?mg?daily?x5?days. She?had?her?medications?refilled?in?December?and?has?enough?of? these?medications. (2) Hypertension: Code(s): I10 - Essential (primary) hypertension Category: Medical Qualifiers: Hypertension type: essential hypertension Qualified Code(s): I10 - Essential (primary) hypertension Plan: Blood?pressure?is?controlled. Goal?is?less?than?140/90 She?does?not?take?medication?and?had?lost?weight?last?year. Continue?diet?control?and?we?can?continue?to?monitor (3) Immunization counseling: Code(s): Z71.85 - Encounter for immunization safety counseling Category: Medical Plan: She?is?up-to-date?with?immunizations?including?pneumonia?and?RSV Medications: Discontinued ipratropium-albuterol 0.5 mg-3 mg(2.5 mg base)/3 mL Discontinued Reason: Doctor's Order 3 mL inhalation Q4-6H PRN 180 mL 0RF shortness of breath or wheezing J41.1 - Mucopurulent chronic bronchitis
[2024-03-02 12:03] VITALS: BP 126/70; PULSE 87; RESP 14; TEMP 36.8; O2SAT 96; BMI 22.6
== END 2024-03-02 12:28 | disposition home or self-care (01) ==
LOC: HO.HMCFM 11:52
PROVIDERS: PCP Family Medicine; Visit Provider Family Medicine
DX: J45.40 Moderate persistent asthma, uncomplicated (principal); I10 Essential (primary) hypertension; Z71.85 Encounter for immunization safety counseling

== ENCOUNTER → 2024-03-02 11:52 | Outpatient (BNVA) | payer MEDICARE, SELFPAY | PROVIDERS: PCP Family Medicine; Visit Provider Family Medicine | DX: J45.40 Moderate persistent asthma, uncomplicated (principal); I10 Essential (primary) hypertension; Z71.85 Encounter for immunization safety counseling | CPT/HCPCS: 99212 ==

== ENCOUNTER 2024-03-08 10:38 | Outpatient (REF) | payer MEDICARE, SELFPAY ==
[2024-03-08 14:44] LABS: Alanine Aminotransferase 23 U/L (0-31); Albumin Level 4.2 g/dL (3.5-5.0); Alkaline Phosphatase 55 U/L (39-117); Anion Gap 14 (12-20); Aspartate Amino Transferase 29 U/L (5-31); Bilirubin Total 0.5 mg/dL (0.0-1.0); Blood Urea Nitrogen 12 mg/dL (9-16); Calcium 9.4 mg/dL (8.4-10.2); Carbon Dioxide 28 mmol/L (22-29); Chloride 103 mmol/L (96-108); Cholesterol 247 mg/dL (<200); Estimated Glomerular Filt Rate > 60; Glucose Fasting 103 mg/dL (60-99); HDL Cholesterol 87 mg/dL (>40); LDL Cholesterol Calculated 142 mg/dL (<100); Potassium 4.1 mmol/L (3.3-5.1); Sodium 141 mmol/L (135-145); Total Protein 6.7 g/dL (6.5-8.0); Triglycerides 91 mg/dL (<150)
== END 2024-03-08 10:39 | disposition home or self-care (01) ==
LOC: HO.WFDLDS 10:38
PROVIDERS: Visit Provider Family Medicine
DX: Z00.00 Encounter for general adult medical examination without abnormal findings (principal); I10 Essential (primary) hypertension
CPT/HCPCS: 36415; 80053; 80061

== ENCOUNTER 2024-03-30 13:59 | Outpatient (AMB) | payer MEDICARE, SELFPAY ==
--- NOTE | 2024-03-30 13:56 | MHC.PC.OV ---
Intake Visit Reasons: f/u labs via telemedicine Intake Note: lab review Allergies No Known Allergies [No Known Allergies*] Allergy (Verified 03/30/24 13:56) Cats Allergy (Mild, Uncoded 02/10/23 15:12) aggrevates asthma Dust Allergy (Mild, Uncoded 02/10/23 15:12) cogestion Mold Allergy (Mild, Uncoded 02/10/23 15:12) allergy Trees Allergy (Mild, Uncoded 02/10/23 15:12) asthma aggravated Tobacco use date assessed: 01/29/23 Dental Screening Dental Screen Date: 01/29/23 HPI f/u labs via telemedicine HPI Details Telemedicine?encounter?to?review?labs. Fasting?blood?sugar?is?elevated.??However,?patient?has?had?steroids?and?had?only?finished?prednisone?a?few?days?prior?to?lab?draw. LDL?cholesterol?is?high PFSH Medical History (Updated 03/30/24 @ 14:38 by Calvin Rasmussen MD) Seasonal allergies Chronic GERD Hypertension Surgical History (Updated 02/10/23 @ 15:12 by Magali De La Rosa) S/P removal of right ovary History of removal of ovarian cyst History of appendectomy History of nasal surgery History of tonsillectomy History of bilateral tubal ligation History of cholecystectomy Family History (System 02/10/23 @ 15:12 by Magali De La Rosa) Father CHF (congestive heart failure) Mother Kidney failure Brother COPD (chronic obstructive pulmonary disease) Social History (System 02/10/23 @ 15:12 by Magali De La Rosa) Housing: House Alcohol intake: current Alcohol intake frequency: holidays/special occasions only Patient Tobacco Use Status: Never used Tobacco e-Cigarette/Vaping Use: Never Used Second Hand Smoke Exposure: No service: No Current occupational status: retired Current occupational exposures/hazards: No Cognitive needs: No Hearing needs: No Vision needs: No Questionnaire Thrive Questionnaire Date Thrive assessed: 04/30/22 SAMUEL-7 AMB Questionnaire SAMUEL-7 Date SAMUEL - 7 assessed: 04/30/22 Source: Developed by Drs. Jignesh Frod, Sunshine Min, Adis Lopez and colleagues, with an educational tigre from [employer]. Review of Systems Const Denies chills, Denies fatigue, Denies fever(s), Denies headache(s) and Denies weakness ENT Denies dizziness and Denies headache(s) Card Denies chest pain, Denies lightheadedness, Denies dyspnea and Denies other (Palpitations) Resp Denies cough, Denies dyspnea, Denies wheezing and Denies other ( shortness of breath) Musc Denies numbness and Denies tingling Neuro Denies dizziness, Denies headache(s), Denies numbness, Denies tingling, Denies paresthesias and Denies weakness Psych Denies anxiety and Denies depression Endo Denies fatigue Aller/Immun Denies wheezing Physical exam (Primary Care) Tobacco/Smoking Status: Tobacco use Status Tobacco use date assessed 01/29/23 03/30/24 13:58 Patient Tobacco Use Status Never used Tobacco 03/30/24 13:58 e-Cigarette/Vaping Use Never Used 03/30/24 13:58 Thrive Assessment: Date of Thrive Assessment Date Thrive assessed 04/30/22 03/30/24 13:58 Telehealth Telehealth Telehealth Platform: Telephone Location of provider rendering services: practice address Location of patient: address on file Patient Identification confirmed using: Name, : Yes Telehealth method: voice only Patient verbally consented to treatment: Yes Patient verbally consented to billing insurance company: Yes Patient informed of any privacy concerns related to visit: Yes Minutes spent on Phone/Video with Pt.: 7 Coding Level of Care Code Est Pt Level 3 (38434) Diagnoses Elevated fasting blood sugar R73.01 Elevated LDL cholesterol level E78.00 Assessment & Plan Assessment & Plan (1) Elevated fasting blood sugar: Code(s): R73.01 - Impaired fasting glucose Category: Medical Plan: Patient?had?been?taking?prednisone?prior?to?blood?draw Will?recheck?fasting?blood?sugar?as?well?as?A1c?with?her?next?blood?draw (2) Elevated LDL cholesterol level: Code(s): E78.00 - Pure hypercholesterolemia, unspecified Category: Medical Plan: LDL?cholesterol?is?too?high.??Goal?is?less?than?100. HDL?is?desirably?high?however. Encouraged?a?diet?lower?saturated?fats?and?cholesterol Encouraged?exercise Will?have?her?recheck?again?3?months Orders: Orders Lipid Panel Today E78.00 - Pure hypercholesterolemia, unspecified, Z00.00 - Encounter for general adult medical examination without abnormal findings Comprehensive [place]. Panel Fast Today E78.00 - Pure hypercholesterolemia, unspecified, Z00.00 - Encounter for general adult medical examination without abnormal findings Hemoglobin A1c Today R73.01 - Impaired fasting glucose
--- OUTSIDE RECORDS SUMMARY | 2024-04-05 20:41 | XMS_ITS | Data Portability ---
Author Organization [place] - [facility], Allergy Address [address] [place] [address] Care Team Providers Care Filtering Machine Tender Helper Name Role Phone [facility] Primary Care Trevor meek Assessment Encounter Date Assessment Date Assessment LastModified by Organization Details LastModified Time 01/21/2024 01/21/2024 73 year old female presents today for evaluation of epistaxis. On examination today there is a dilated vessel on the right nasal septum. There are small visible vessels on the left. Silver nitrate cautery of the right nasal septum was offered and the patient elected to proceed. Epistaxis precautions were reviewed. I offered follow up in a few weeks to consider left sided cautery but she declined. She will call for follow up if needed. [email or web address] Not available 01/21/2024 13:57:31 02/15/2024 02/15/2024 Left sided cautery was performed today which the patient tolerated well. Encouraged her to continue with epistaxis precautions and follow up as needed if bleeding recurs. [email or web address] Not available 02/15/2024 15:53:04 03/31/2024 03/31/2024 73 year old female presents for left sided epistaxis. Left sided cautery was performed today which the patient tolerated well. Encouraged her to continue with epistaxis precautions and follow up in 2-3 weeks. [email or web address] Not available 03/31/2024 16:18:06 Plan of Treatment Reminders Order Date Submit Date Provider Last Modified By Organization Details Last Modified Time Details Appointments Establish ed 15 2023 02:30P Mary ZAMUDIO PA-C Not available Not available Not available Lab None recorded. Referral None recorded. Procedures None recorded. Surgeries None recorded. Imaging None recorded. Medication Orders None recorded. Patient TargetsNo targets recorded. Patient InstructionsNo instructions recorded. Reason for Referral None Reported. Problems Name Problem SNOMED Code Status Onset Date Resolution Date Notes Provider Name and Address Organization Details Recorded Time Bleeding from nose 461140049 Active 024 ANNAMARIA GIL PA-C 100 [facility],[address], [place], [address], [facility] - [facility] [place] 4 13:50:18 Anterior epistaxis 837678851 Active 024 ANNAMARIA GIL PA-C 100 [facility],[address], [place], [address], [facility] - [facility] [place] 15:52:32 Problem Notes None recorded. Procedures Surgical History Date Name Laterality Status Provider Name and Address Organization Details Recorded Time 03/31/20 24 Epistaxis Anterior/Comple x Left completed ANNA ZAMUDIO PA-C 100 [facility], [place], [address], [facility] - [facility] 03/31/2024 16:16:04 02/15/20 24 Epistaxis Simple Nasal Cautery Left completed ANNAMARIA GIL PA-C 100 [facility], [place], [address], [facility] - [facility] 02/15/2024 15:53:30 01/21/20 24 Epistaxis Simple Nasal Cautery Right completed ANNAMARIA GIL PA-C 100 [facility] [address] [address], [place], [address], [facility] - [facility] 01/21/2024 13:50:11 04/27/19 23 mammogram - symptomatic completed Aisha Shah [place] - [facility] [place] 01/21/2024 13:20:00 Cerv cancer screen docd completed Aisha Shah [place] - [facility] [place] 01/21/2024 13:19:35 colonoscopy completed Aisha Shah [place] - [facility] [place] 01/21/2024 13:20:19 Imaging Results None recorded. Procedure Notes None recorded. Medical Equipment None Reported. Allergies No known drug allergies Medications Name Sig Start Date Stop Date Status Note LastModified by Organization Details LastModified Time azithromycin 250 mg tablet active Not Available Not Available Not Available cephalexin 500 mg capsule PLEASE SEE ATTACHED FOR DETAILED DIRECTIONS active Not Available Not Available N ot Available albuterol sulfate HFA 90 mcg/actuatio n aerosol inhaler active Not Available Not Available Not Available Vitals Date Recorded Body height Body mass index (BMI) Body weight Provider Name and Address Organization Details Last Updated DateTime 01/21/2024 162.56 cm 21.5 kg/m2 42033.05 g Aisha Shah [place] - [facility] 01/21/2024 13:04:40 Date Recorded Body height Body mass index (BMI) Body weight Provider Name and Address Organization Details Last Updated DateTime 02/15/2024 162.56 cm 21.5 kg/m2 83588.05 g Mariana Felipe [facility] 02/15/2024 15:24:15 Date Recorded Body height Body mass index (BMI) Body weight Provider Name and Address Organization Details Last Updated DateTime 03/31/2024 162.56 cm 21.5 kg/m2 12425.05 g Aisha Shah [facility] 03/31/2024 15:25:25 Social History Question Answer Notes LastModified by Organizat ion Details LastModified Time Tobacco Smoking Status Never Smoker Aisha schulz [place] [facility] 01/21/2024 13:05:43 What Is Your Level Of Alcohol Consumption? Occasional [email or web address] Information not available 01/21/2024 Sex: Unknown Functional Status None recorded. Mental Status None recorded. Family History Nothing Reported. Medical History Condition Response Asthma Y Gynecological HistoryNo gynecological history recorded. Obstetrics History GPAL:G 0 P 0 0 0 0 Immunizations Vaccine Type Date Status Provider Name and Address Organization Details Recorded Time influenza nasal, unspecified formulation 04/27/2023 completed Aisha schulz [place] [facility] 01/21/2024 13:05:10 Past Encounters Encounter ID Performer Location Encounter Start Date Encounter Closed Date Diagnosis/Indication Diagnosis SNOMED-CT Code Diagnosis ICD10 Code [id number] ANNAMARIA GIL PA-C [facility] [address] [address] 01/21/2024 12:48:06 01/21/2024 13:51:29 Bleeding from nose 144426796 R04.0 [id number] ANNAMARIA GIL PA-C [facility] on [address] [place] [address] 02/15/2024 15:22:35 02/15/2024 15:47:09 Anterior epistaxis 318241154 R04.0 [id number] NETTE LOOMIS MD [facility] on [address] [place] [id number] 03/31/2024 15:17:46 03/31/2024 15:46:39 Bleeding from nose 074346684 R04.0 Health Concerns Section Related Observation LastModified by Organization Detai ls LastModified Time None Recorded Concern Status LastModified by Organization Details LastModified Time None Recorded Advance Directives Directive None Recorded Payers Encounter Date Sequence Insurance Name Policy Number Policy Schuster Covered Member ID Schuster Member ID Guarantor Name 01/21/2024 1 [employer] MEDICARE ADVANTAGE PLAN (MEDICARE REPLACEMENT HMO) [id number] Callie M Mary Magy [id number] Callie Bhatti 02/15/2024 1 [employer] MEDICARE ADVANTAGE PLAN (MEDICARE REPLACEMENT HMO) [id number] Callie M Mary Magy [id number] Callie Bhatti 03/31/2024 1 [employer] MEDICARE ADVANTAGE PLAN (MEDICARE REPLACEMENT HMO) [id number] Callie Hernandez Mary Magy [id number] Callie Bhatti Notes Date Note Type Note Provider Name and Address Organization Details Recorded Time 01/21/2024 text/html 73 year old giovana luna presents today for evaluation of epistaxis.She reports a long history of epistaxis. They have been more frequent since she relocated to [place] from [place]. The bleeding is bilateral. It usually lasts about 20-30 minutes. Sometimes they are big clots associated with the bleeding. Her last nosebleed was this morning from the right nostril.She has a previous history of electrocautery while living in [place]. She has also seen in the past who did silver nitrate cautery x 3.She is currently using a nasal rinse with xlylitol and [place] gel. She has found this somewhat helpful. She will also use the rinse when the nose is bleeding as this seems to help. History of septoplasty and turbinate reduction many years ago in [place]. ANNAMARIA GIL PA-C 100 [facility],[address], [address], [place] - [facility] 01/21/2024 13:57:51 02/15/2024 text/html 73 year old giovana luna with epistaxis.One month ago she was seen and had right sided cautery performed. She has had very limited bleeding from the right nostril. She has had some bleeding on the left and would like the left side cauterized today. ANNAMARIA GIL PA-C 100 [facility],[address], [address], [facility] 02/15/2024 15:53:47 03/31/2024 text/html 73 year old giovana luna presents for left-sided epistaxis. She had left-sided cautery by Annamaria Gil PA-C at her visit on 02/15/24. She reports that the day after the cautery she sneezed out the packing. Overall her nosebleeds have improved but she still does have a couple a week from the left side. Her most recent one was yesterday. She does nasal rinse with Xylitol and uses [place] gel. NETTE LOOMIS MD 100 [facility],[address], [address], [facility] - [facility] 04/01/2024 09:09:25 OBGyn Episode No OBEpisode recorded.
--- OUTSIDE RECORDS SUMMARY | 2024-04-05 20:42 | XMS_ITS | Continuity of Care Document ---
Author Organization [place] - [facility], [facility] Address [address] [facility] [place] [address] Care Team Providers Care Ophthalmologist Retina Specialist Name Role Phone [facility] Primary Care Trevor meek Assessment Encounter [...] if needed. [email or web address] Not available 01/21/2024 13:57:31 Plan of Treatment Reminders Order Date Submit Date Provider Last Modified By Organization Details Last Modified Time Details Appointments Establish ed 15 2023 02:30P M ANNA ZAMUDIO PA-C Not available Not available Not available Lab None recorded. Referral None recorded. Procedures None recorded. Surgeries None recorded. Imaging None recorded. Medication Orders None recorded. Patient TargetsNo targets recorded. Patient InstructionsNo instructions recorded. Reason for Referral None Reported. Problems Name Problem SNOMED Code Status Onset Date Resolution Date Notes Provider Name and Address Organization Details Recorded Time Bleeding from nose 985516880 Active 024 KP GIL PA-C [address], [address] [place] [address] - [facility] [place] 13:50:18 Anterior epistaxis 584135945 Active 024 KP GIL PA-C [address] [place], [address], [facility] - [facility] 15:52:32 Problem Notes None recorded. Procedures Surgical History Date Name Laterality Status Provider Name and Address Organization Details Recorded Time 03/31/20 24 Epistaxis Anterior/Comple x Left completed ANNA ZAMUDIO PA-C 100 [facility],[address] [address], [place], [address], [facility] - [facility] 03/31/2024 16:16:04 02/15/20 24 Epistaxis Simple Nasal Cautery Left completed KP GIL PA-C 100 [facility],[address] [address], [place], [address], [facility] - [facility] 02/15/2024 15:53:30 01/21/20 24 Epistaxis Simple Nasal Cautery Right completed KP GIL PA-C 100 [facility],[address], [address], [facility] - [facility] 01/21/2024 13:50:11 04/27/19 23 mammogram - symptomatic completed Aisha Shah [place] - [facility] 01/21/2024 13:20:00 Cerv cancer screen docd completed Aisha Shah [place] - [facility] 01/21/2024 13:19:35 colonoscopy completed Aisha Shah [place] - [facility] 01/21/2024 13:20:19 Imaging Results None recorded. Procedure [...] Updated DateTime 01/21/2024 162.56 cm 21.5 kg/m2 28610.05 g Aisha Shah [place] - [facility] 01/21/2024 13:04:40 Social History Question Answer Notes LastModified by Organizat ion Details LastModified Time Tobacco Smoking Status Never Smoker Aisha schulz [place] - [facility] 01/21/2024 13:05:43 What Is Your Level Of Alcohol Consumption? Occasional [email or web address] Information not available 01/21/2024 Sex: Unknown Functional Status None recorded. Mental Status None recorded. Family History Nothing Reported. Medical History Condition Response Asthma Y Gynecological HistoryNo gynecological history recorded. Obstetrics History GPAL:G 0 P 0 0 0 0 Immunizations Vaccine Type Date Status Provider Name and Address Organization Details Recorded Time influenza nasal, unspecified formulation 04/27/2023 completed Aisha schulz [place] - [facility] 01/21/2024 13:05:10 Past Encounters Encounter ID Performer Location Encounter Start Date Encounter Closed Date Diagnosis/Indication Diagnosis SNOMED-CT Code Diagnosis ICD10 Code [id number] KP GIL PA-C [facility] [address] [address] 01/21/2024 12:48:06 01/21/2024 13:51:29 Bleeding from nose 029232488 R04.0 Health Concerns Section Related Observation LastModified by Organization Detai ls LastModified Time None Recorded Concern Status LastModified by Organization Details LastModified Time None Recorded Payers Encounter Date Sequence Insurance Name Policy Number Policy Schuster Covered Member ID Schuster Member ID Guarantor Name 01/21/2024 1 [employer] MED[employer] ADVANTAGE PLAN (MEDICARE REPLACEMENT HMO) [id number] Callie Bhatti [id number] Callie Bhatti Notes Date Note Type Note Provider Name and Address Organization Details Recorded Time 01/21/2024 text/html 73 year old giovana luna presents today for evaluation of epistaxis.She reports a long history of epistaxis. They have been more frequent since she relocated to [place] from [place]. The bleeding is bilateral. It usually lasts about 20-30 minutes. Sometimes they are big clots associated with the bleeding. Her last nosebleed was this morning from the right nostril.She has a previous history of electrocautery while living in [place]. She has also seen in the past who did silver nitrate cautery x 3.She is currently using a nasal rinse with xlylitol and [place] gel. She has found this somewhat helpful. She will also use the rinse when the nose is bleeding as this seems to help. History of septoplasty and turbinate reduction many years ago in [place]. KP GIL PA-C [address] [place] [address], [place], [address], [facility] - [facility] 01/21/2024 13:57:51 OBGyn Episode No OBEpisode recorded.
--- OUTSIDE RECORDS SUMMARY | 2024-04-05 20:42 | XMS_ITS | Continuity of Care Document ---
Author Organization [place] - [facility], ENTS [facility] Address [address] [place] [address] Care Team Providers Care Photostat Operator Helper Name Role Phone [facility] Primary Care Trevor gaviota Assessment Encounter Date Assessment Date Assessment LastModified by Organization Details LastModified Time 03/31/2024 03/31/2024 73 year old female presents [...] Organization Details Recorded Time Bleeding from nose 025458719 Active 024 ANNAMARIA GIL PA-C [address] [address], [place], [address], [facility] - [facility] 4 13:50:18 Anterior epistaxis 202349000 Active 024 ANNAMARIA GIL PA-C [address] [address], [place], [address], [facility] - [facility] 4 15:52:32 Problem Notes None recorded. Procedures Surgical History Date Name Laterality Status Provider Name and Address Organization Details Recorded Time 03/31/20 24 Epistaxis Anterior/Comple x Left completed ANNA ZAMUDIO PA-C 100 [facility],[address] [facility][note 3], [place], [address], [place] - [facility] 03/31/2024 16:16:04 02/15/20 24 Epistaxis Simple Nasal Cautery Left completed ANNAMARIA GIL PA-C 100 [facility],[address] [address], [place], [address], [place] [facility] 02/15/2024 15:53:30 01/21/20 24 Epistaxis Simple Nasal Cautery Right completed ANNAMARIA GIL PA-C 100 [facility],[address] [address], [place], [address], [place] [facility] 01/21/2024 13:50:11 04/27/19 23 mammogram - symptomatic completed Aisha Shah [place] - [facility] 01/21/2024 13:20:00 Cerv cancer screen docd completed Aisha Shah [place] - [facility] 01/21/2024 13:19:35 colonoscopy completed Aisha Shah [place] - [facility] 01/21/2024 13:20:19 Imaging Results None recorded. Procedure [...] Updated DateTime 03/31/2024 162.56 cm 21.5 kg/m2 58383.05 g Aisha Shah [place] - [facility] 03/31/2024 15:25:25 Social History Question Answer Notes LastModified by Organizat ion Details LastModified Time Tobacco Smoking Status Never Smoker Aisha schulz [place] - [facility] 01/21/2024 13:05:43 What Is Your Level Of Alcohol Consumption? Occasional Information not available 01/21/2024 Sex: Unknown Functional Status None recorded. Mental Status None recorded. Family History Nothing Reported. Medical History Condition Response Asthma Y Gynecological HistoryNo gynecological history recorded. Obstetrics History GPAL:G 0 P 0 0 0 0 Immunizations Vaccine Type Date Status Provider Name and Address Organization Details Recorded Time influenza nasal, unspecified formulation 04/27/2023 completed Aisha schulz [facility] 01/21/2024 13:05:10 Past Encounters Encounter ID Performer Location Encounter Start Date Encounter Closed Date Diagnosis/Indication Diagnosis SNOMED-CT Code Diagnosis ICD10 Code [id number] NETTE LOOMIS MD ENTS [facility] on [address] [place] [id number] 03/31/2024 15:17:46 03/31/2024 15:46:39 Bleeding from nose 522297649 R04.0 Health Concerns Section Related Observation LastModified by Organization Detai ls LastModified Time None Recorded Concern Status LastModified by Organization Details LastModified Time None Recorded Payers Encounter Date Sequence Insurance Name Policy Number Policy Schuster Covered Member ID Schuster Member ID Guarantor Name 03/31/2024 1 [employer] MEDICARE ADVANTAGE PLAN (MEDICARE REPLACEMENT HMO) [id number] Callie Bhatti [id number] Callie Bhatti Notes Date Note Type Note Provider Name and Address Organization Details Recorded Time 03/31/2024 text/html 73 year old female presents for left-sided epistaxis. She had left-sided cautery by Annamaria Gil PA-C at her visit on 02/15/24. She reports that the day after the cautery she sneezed out the packing. Overall her nosebleeds have improved but she still does have a couple a week from the left side. Her most recent one was yesterday. She does nasal rinse with Xylitol and uses [place] gel. NETTE LOOMIS MD [address] [place] [address], [address], [facility] - [facility] 04/01/2024 09:09:25 OBGyn Episode No OBEpisode recorded.
--- OUTSIDE RECORDS SUMMARY | 2024-04-05 20:42 | XMS_ITS | Continuity of Care Document ---
Author Organization [place] - 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 Encouraged her to continue with epistaxis precautions and follow up as needed if bleeding recurs. [email or web address] Not available 02/15/2024 15:53:04 Plan of Treatment Reminders Order Date Submit [...] Organization Details Recorded Time Bleeding from nose 883126427 Active 024 KP GIL PA-C [address] [place] [address], [phone], [facility] 4 13:50:18 Anterior epistaxis 396240694 Active 024 KP GIL PA-C [address] [place] [address], [address], [facility] 4 15:52:32 Problem Notes None recorded. Procedures Surgical History Date Name Laterality Status Provider Name and Address Organization Details Recorded Time 03/31/20 24 Epistaxis Anterior/Comple x Left completed ANNA ZAMUDIO PA-C [address], [place], [address], [facility] - [facility] 03/31/2024 16:16:04 02/15/20 24 Epistaxis Simple Nasal Cautery Left completed KP GIL PA-C [address], [place], [address], [facility] - [facility] 02/15/2024 15:53:30 01/21/20 24 Epistaxis Simple Nasal Cautery Right completed KP GIL PA-C [address], [place], [address], [place] - [facility] 01/21/2024 13:50:11 04/27/19 23 mammogram - symptomatic completed Aisha Shah [place] - [facility] 01/21/2024 13:20:00 Cerv cancer screen docd completed Aisha Shah [place] - [facility] 01/21/2024 13:19:35 colonoscopy completed Aisha Shah [place] - [facility] 01/21/2024 13:20:19 Imaging Results None recorded. [...] Updated DateTime 02/15/2024 162.56 cm 21.5 kg/m2 54033.05 g Mariana Felipe [place] - [facility] 02/15/2024 15:24:15 Social History Question Answer Notes LastModified by Organizat ion Details LastModified Time Tobacco Smoking Status Never Smoker Aisha schulz [place] - [facility] 01/21/2024 13:05:43 What Is Your Level Of Alcohol Consumption? Occasional [email or web address] Information not available 01/21/2024 Sex: Unknown Functional Status None recorded. Mental Status None recorded. Family History Nothing Reported. Medical History Condition Response Asthma Y Gynecological HistoryNo gynecological history recorded. Obstetrics History GPAL:G 0 P 0 0 0 0 Immunizations Vaccine Type Date Status Provider Name and Address Organization Details Recorded Time influenza nasal, unspecified formulation 04/27/2023 completed Aisha schulz [place] - [facility] 01/21/2024 13:05:10 Past Encounters Encounter ID Performer Location Encounter Start Date Encounter Closed Date Diagnosis/Indication Diagnosis SNOMED-CT Code Diagnosis ICD10 Code [id number] KP GIL PA-C [facility] of [facility] on [address] [place] [phone] 01/21/2024 12:48:06 01/21/2024 13:51:29 Bleeding from nose 443752796 R04.0 [id number] KP GIL PA-C [facility] of [facility] on [address] [place] [id number] 02/15/2024 15:22:35 02/15/2024 15:47:09 Anterior epistaxis 014238015 R04.0 Health Concerns Section Related Observation LastModified by Organization Detai ls LastModified Time None Recorded Concern Status LastModified by Organization Details LastModified Time None Recorded Payers Encounter Date Sequence Insurance Name Policy Number Policy Schuster Covered Member ID Schuster Member ID Guarantor Name 02/15/2024 1 [employer] - MEDICARE ADVANTAGE PLAN (MEDICARE REPLACEMENT HMO) [id number] 12 Callie Bhatti [id number] Callie Bhatti Notes Date Note Type Note Provider Name and Address Organization Details Recorded Time 02/15/2024 text/html 73 year old female with epistaxis.One month ago she was seen and had right sided cautery performed. She has had very limited bleeding from the right nostril. She has had some bleeding on the left and would like the left side cauterized today. KP GIL PA-C [address] [place] [address], [address], [place] - [facility] 02/15/2024 15:53:47 OBGyn Episode No OBEpisode recorded.
== END 2024-03-30 17:05 | disposition home or self-care (01) ==
LOC: HO.HMCFM 13:59
PROVIDERS: PCP Family Medicine; Visit Provider Family Medicine
DX: R73.01 Impaired fasting glucose (principal); E78.00 Pure hypercholesterolemia, unspecified

== ENCOUNTER → 2024-03-30 13:59 | Outpatient (BNVA) | payer MEDICARE, SELFPAY | PROVIDERS: PCP Family Medicine; Visit Provider Family Medicine | DX: R73.01 Impaired fasting glucose (principal); E78.00 Pure hypercholesterolemia, unspecified | CPT/HCPCS: 99212 ==

== ENCOUNTER 2024-05-30 10:38 | Outpatient (REF) | payer MEDICARE, SELFPAY ==
--- OUTSIDE RECORDS SUMMARY | 2024-05-30 11:28 | XMS_ITS | Data Portability ---
Author Organization [place] - [facility], Allergy Address [address] [address] Care Team Providers Care Registered Public Health Nurse Name Role Phone [facility] Primary Care Trevor meek Assessment Encounter [...] will call for follow up if needed. jim Not available 01/21/2024 13:57:31 02/15/2024 02/15/2024 Left sided cautery was performed today which the patient tolerated well. Encouraged her to continue with epistaxis precautions and follow up as needed if bleeding recurs. jim Not available 02/15/2024 15:53:04 03/31/2024 03/31/2024 73 year old female presents for left sided epistaxis. Left sided cautery was performed today which the patient tolerated well. Encouraged her to continue with epistaxis precautions and follow up in 2-3 weeks. adriana Not available 03/31/2024 16:18:06 04/28/2024 04/28/2024 73 year old female presents for follow up of epistaxis. Nasal examination today did not identify a prominent bleeding source. Recommend medical management with saline nasal spray 4-6 times daily, K-Y jelly at night, Afrin with episodes of bleeding. She will follow up in a couple of months per her request. adriana Not available 04/28/2024 10:53:34 Plan of Treatment Reminders Order Date Submit Date Provider Last Modified By Organization Details Last Modified Time Details Appointments Establish ed 15 2024 01:00P M ANNA ZAMUDIO PA-C Not available Not [...] Organization Details Recorded Time Bleeding from nose 989110746 Active 024 ANNAMARIA GIL PA-C [address], [place], [address], [facility] - [facility] 13:50:18 Anterior epistaxis 887675783 Active 024 ANNAMARIA GIL PA-C [address] [facility] [address], [place], [address], [place] - [facility] 15:52:32 Problem Notes None recorded. Procedures Surgical History Date Name Laterality Status Provider Name and Address Organization Details Recorded Time 03/31/20 24 Epistaxis Anterior/Comple x Left completed ANNA ZAMUDIO PA-C [address] [facility] [address], [address], [facility] - [facility] 03/31/2024 16:16:04 02/15/20 24 Epistaxis Simple Nasal Cautery Left completed ANNAMARIA GIL PA-C 100 [facility],[address], [address], [facility] - [facility] 02/15/2024 15:53:30 01/21/20 24 Epistaxis Simple Nasal Cautery Right completed ANNAMARIA GIL PA-C [address] [facility] [address], [address], [facility] - [facility] 01/21/2024 13:50:11 04/27/19 23 mammogram - symptomatic completed Aisha Shha [place] - [facility] 01/21/2024 13:20:00 Cerv cancer screen docd completed Aisha Shah [place] - [facility] 01/21/2024 13:19:35 colonoscopy completed Aisha Shah [place] - [facility] 01/21/2024 13:20:19 Imaging Results None recorded. Procedure Notes None recorded. Medical Equipment None Reported. Allergies No known drug allergies Medications Name Sig Start Date Stop Date Status Note LastModified by Organization Details LastModified Time azithromyci n 250 mg tablet 04/28 completed Not Available Not Available Not Available cephalexin 500 mg capsule PLEASE SEE ATTACHED FOR DETAILED DIRECTION S 04/28 completed Not Available Not Available Not Available Flovent 110 mcg/actuati on aerosol inhaler Inhale 1 puff twice a day by inhalatio n route. active Not Available Not Available No t Available albuterol sulfate HFA 90 mcg/actuati on aerosol inhaler active Not Available Not Available Not Available Vitals Date Recorded Body height Body mass index (BMI) Body weight Provider Name and Address Organization Details Last Updated DateTime 01/21/2024 162.56 cm 21.5 kg/m2 12108.05 g Aisha Shah [place] - [facility] 01/21/2024 13:04:40 Date Recorded Body height Body mass index (BMI) Body weight Provider Name and Address Organization Details Last Updated DateTime 02/15/2024 162.56 cm 21.5 kg/m2 69477.05 g Mariana Felipe [place] - [facility] 02/15/2024 15:24:15 Date Recorded Body height Body mass index (BMI) Body weight Provider Name and Address Organization Details Last Updated DateTime 03/31/2024 162.56 cm 21.5 kg/m2 83781.05 g Aisha Shah [place] - [facility] 03/31/2024 15:25:25 Date Recorded Body height Body mass index (BMI) Body weight Provider Name and Address Organization Details Last Updated DateTime 04/28/2024 160.02 cm 22.1 kg/m2 73923.05 g Melody Gunderson [place] - [facility] 04/28/2024 10:46:32 Social History Question Answer Notes LastModified by Organizat ion Details LastModified Time Tobacco Smoking Status Never Smoker Aisha schulz [place] - [facility] 01/21/2024 13:05:43 What Is Your Level Of Alcohol Consumption? Occasional [id number] Information not available 01/21/2024 Sex: Unknown Functional Status None recorded. Mental Status None recorded. Family History Nothing Reported. Medical History Condition Response Asthma Y Gynecological HistoryNo gynecological history recorded. Obstetrics History GPAL:G 0 P 0 0 0 0 Immunizations Vaccine Type Date Status Note Provider Nam e and Address Organization Details Recorded Time influenza nasal, unspecified formulation completed Aisha schulz [place] - [facility] 01/21/2024 13:05:10 Past Encounters Encounter ID Performer Location Encounter Start Date Encounter Closed Date Diagnosis/Indication Diagnosis SNOMED-CT Code Diagnosis ICD10 Code Diagnosis Note [id number] ANNAMARIA GIL PA-C [facility] of [facility] on [address] [place] [id number] 01/21/2024 12:48:06 01/21/2024 13:51:29 Bleeding from nose 978598457 R04.0 [id number] ANNAMARIA GIL PA-C [facility] on [address] [place] [id number] 02/15/2024 15:22:35 02/15/2024 15:47:09 Anterior epistaxis 104242238 R04.0 [id number] NETTE LOOMIS MD [facility] on [address] [place] [phone] 03/31/2024 15:17:46 03/31/2024 15:46:39 Bleeding from nose 549917152 R04.0 [id number] NETTE LOOMIS MD [facility] on [address] [place] [id number] 04/28/2024 10:40:54 04/28/2024 10:53:54 Bleeding from nose 683273785 R04.0 Health Concerns Section Related Observation LastModified by Organization Detai ls LastModified Time None Recorded Concern Status LastModified by Organization Details LastModified Time None Recorded Advance Directives Directive None Recorded Payers Encounter Date Sequence Insurance Name Policy Number Policy Schuster Covered Member ID Schuster Member ID Guarantor Name 01/21/2024 1 [employer] MED[employer]ARE ADVANTAGE PLAN (MEDICARE REPLACEMENT HMO) [id number] Callie Hernandez Magy [id number] Callie Bhatti 02/15/2024 1 [employer] - MEDICARE ADVANTAGE PLAN (MEDICARE REPLACEMENT HMO) [id number] 12 Callie Hernandez Magy [id number] Callie Bhatti 03/31/2024 1 [employer] [place] MEDICARE ADVANTAGE [facility] (MEDICARE REPLACEMENT HMO) [id number] 12 Callie Hernandez Magy [id number] Callie Bhatit 04/28/2024 1 [employer] - MEDICARE ADVANTAGE PLAN (MEDICARE REPLACEMENT HMO) [id number] Callie Hernandez Magy [id number] Callie Bhatti Notes Date Note Type Note Provider Name and Address Organization Details Recorded Time 01/21/2024 text/html 73 year old giovana luna presents today for evaluation of epistaxis.She reports a long history of epistaxis. They have been more frequent since she relocated to [place] from [place]. The bleeding is bilateral. It usually lasts about 20-30 minutes. Sometimes they are big clots associated with the bleeding. Her last nosebleed was this morning from the right nostril.She has a previous history of electrocautery while living in [place]. She has also seen in the past who did silver nitrate cautery x 3.She is currently using a nasal rinse with xlylitol and [place] gel. She has found this somewhat helpful. She will also use the rinse when the nose is bleeding as this seems to help. History of septoplasty and turbinate reduction many years ago in [place]. ANNAMARIA GIL PA-C [address], [address], [facility] - [facility] 01/21/2024 13:57:51 02/15/2024 text/html 73 year old giovana luna with epistaxis.One month ago she was seen and had right sided cautery performed. She has had very limited bleeding from the right nostril. She has had some bleeding on the left and would like the left side cauterized today. ANNAMARIA GIL PA-C 100 [facility] [address], [place], [address], [facility] - [facility] 02/15/2024 15:53:47 03/31/2024 text/html 73 year old [...] does nasal rinse with Xylitol and uses [place] gel. NETTE LOOMIS MD 100 [facility],[address] [address], [place], [address], [facility] - [facility] 04/01/2024 09:09:25 04/28/2024 text/html 73 year old giovana luna presents for follow up of epistaxis. She has done well since the cautery. She has not had a nosebleed in weeks. She is using nasal saline and gel. NETTE LOOMIS MD 100 [facility], [place], [address], [facility] - [facility] 04/28/2024 12:43:09 OBGyn Episode No OBEpisode recorded.
[2024-05-30 14:28] LABS: Estimated Average Glucose 117 mg/dL; Hemoglobin A1C 146.3421 umol/L; Hemoglobin A1c % 5.7 % (<6.0); Total Hemoglobin (HGBA1C) 3743.4731 umol/L
[2024-05-30 15:13] LABS: Alanine Aminotransferase 29 U/L (0-31); Albumin Level 4.2 g/dL (3.5-5.0); Anion Gap 11 (12-20); Aspartate Amino Transferase 33 U/L (5-31); Bilirubin Total 0.5 mg/dL (0.0-1.0); Blood Urea Nitrogen 14 mg/dL (9-16); Calcium 9.2 mg/dL (8.4-10.2); Carbon Dioxide 28 mmol/L (22-29); Chloride 106 mmol/L (96-108); Cholesterol 222 mg/dL (<200); Estimated Glomerular Filt Rate > 60; Glucose Fasting 100 mg/dL (60-99); HDL Cholesterol 82 mg/dL (>40); LDL Cholesterol Calculated 121 mg/dL (<100); Potassium 4.5 mmol/L (3.3-5.1); Sodium 140 mmol/L (135-145); Triglycerides 95 mg/dL (<150)
[2024-05-30 16:52] LABS: Alkaline Phosphatase 54 U/L (39-117)
== END 2024-05-30 10:39 | disposition home or self-care (01) ==
LOC: HO.WFDLDS 10:38
PROVIDERS: Visit Provider Family Medicine
DX: Z00.00 Encounter for general adult medical examination without abnormal findings (principal); R73.01 Impaired fasting glucose; E78.00 Pure hypercholesterolemia, unspecified
CPT/HCPCS: 36415; 80053; 80061; 83036

== ENCOUNTER 2024-06-06 14:26 | Outpatient (AMB) | payer MEDICARE, SELFPAY ==
--- NOTE | 2024-06-06 14:29 | MHC.PC.OV ---
Vital Signs 06/06/24 14:33 Height 5 ft 3 in Weight 129 lb 4 oz BMI 22.9 BP 120/70 Blood Pressure Location Lt brachial Position Sitting Respiration 14 Pulse 93 Pulse Source Pulse Oximeter Temp 97.8 F Temp Source Oral Pulse Oximetry (%) 97 Oxygen Delivery Method Room Air Intake Visit Reasons: f/u chronic conditions Intake Note: lab review Allergies No Known Allergies [No Known Allergies*] Allergy (Verified 06/06/24 14:31) Cats Allergy (Mild, Uncoded 02/10/23 15:12) aggrevates asthma Dust Allergy (Mild, Uncoded 02/10/23 15:12) cogestion Mold Allergy (Mild, Uncoded 02/10/23 15:12) allergy Trees Allergy (Mild, Uncoded 02/10/23 15:12) asthma aggravated Medication List - Last Reconciled 06/06/24 by Calvin Rasmussen MD albuterol sulfate 90 mcg/actuation 2 puffs inhalation Q6H 90 days fluticasone propionate 110 mcg/actuation 2 puffs inhalation BID 90 days prednisone 20 mg PO DAILY 90 days Tobacco use date assessed: 01/29/23 Dental Screening Dental Screen Date: 01/29/23 HPI f/u chronic conditions HPI Details 73 y/o female presents to f/u chronic conditions such as elevated FBS and HLD. Labs drawn 05/30/24. Reviewed labs with pt. A1c 5.7%. Had some bouts of prednisone. Elevated AST of 33. Triglycerides 95. TC 222. LDL 121. HDL 82. PFSH Medical History (Updated 06/06/24 @ 15:13 by Jaime Lopez) Seasonal allergies Chronic GERD Hypertension Surgical History (Updated 02/10/23 @ 15:12 by Magali De La Rosa) S/P removal of right ovary History of removal of ovarian cyst History of appendectomy History of nasal surgery History of tonsillectomy History of bilateral tubal ligation History of cholecystectomy Family History (System 02/10/23 @ 15:12 by Magali De La Rosa) Father CHF (congestive heart failure) Mother Kidney failure Brother COPD (chronic obstructive pulmonary disease) Social History (System 02/10/23 @ 15:12 by Magali De La Rosa) Housing: House Alcohol intake: current Alcohol intake frequency: holidays/special occasions only Patient Tobacco Use Status: Never used Tobacco e-Cigarette/Vaping Use: Never Used Second Hand Smoke Exposure: No service: No Current occupational status: retired Current occupational exposures/hazards: No Cognitive needs: No Hearing needs: No Vision needs: No Questionnaire PHQ-9 Over the last 2 weeks, how often have you been bothered by any of the following problems? 1. Little interest or pleasure in doing things: not at all 2. Feeling down, depressed, or hopeless: not at all 3. Trouble falling or staying asleep, or sleeping too much: not at all 4. Feeling tired or having little energy: not at all 5. Poor appetite or overeating: not at all 6. Feeling bad about yourself - or that you are a failure or have let yourself or your family down: not at all 7. Trouble concentrating on things, such as reading the newspaper or watching television: not at all 8. Moving or speaking so slowly that other people could have noticed. Or the opposite - being so fidgety or restless that you have been moving around a lot more than usual: not at all 9. Thoughts that you would be better off or of hurting yourself in some way: not at all Total score: 0 Source: Developed by Drs. Jignesh Ford, Sunshine Min, Adis Lopez and colleagues, with an educational tigre from [employer]. Thrive Questionnaire Date Thrive assessed: 05/30/24 I am a: Patient What is your living situation today?: I have a steady place to live Within the past 12 months, did the food you bought not last and you didn't have the money to get more?: Never true Within the past 12 months, did you worry whether your food would run out before you got money to buy more?: Never true Do you have trouble paying for medicines?: No Do you have trouble getting transportation to medical appointments?: No Do you have trouble paying your heating and electricity bill?: No Do you have trouble taking care of your child, family member or friend?: No Do you have trouble with day-to-day activities such as bathing, preparing meals, shopping, managing finances, etc.?: No Are you currently unemployed and looking for a job?: No Are you interested in more education?: No Please select the resources that you would like help with: None Currently or been in a relationship where the following occur: No concerns reported THRIVE Score: 0 AUDIT C Alcohol Use Questionnaire (AUDIT-C) 1. How often do you have a drink containing alcohol?: 2-3 times a week 2. How many drinks containing alcohol do you have on a typical day when you are drinking?: 1 or 2 3. How often do you have six or more drinks on one occasion?: Never Total Score: 3 SAMUEL-7 AMB Questionnaire SAMUEL-7 Date SAMUEL - 7 assessed: 04/30/22 Feeling nervous, anxious, or on edge: 0 = Not at all Not being able to stop or control worryin = Not at all Worrying too much about different things: 0 = Not at all Trouble relaxin = Not at all Being so restless that it is hard to sit still: 0 = Not at all Becoming easily annoyed or irritable: 0 = Not at all Feeling afraid as if something awful might happen: 0 = Not at all Total SAMUEL-7 score (0-4 normal; 5-9 mild; 10-14 moderate; 15-21 severe): 0 Source: Developed by Drs. Jignesh Ford, Sunshine Min, Adis Lopez and colleagues, with an educational tigre from [employer]. Review of Systems Const Denies chills, Denies fatigue, Denies fever(s), Denies headache(s) and Denies weakness ENT Denies dizziness and Denies headache(s) Card Denies chest pain, Denies lightheadedness, Denies dyspnea and Denies other (Palpitations) Resp Denies cough, Denies dyspnea, Denies wheezing and Denies other ( shortness of breath) Musc Denies numbness and Denies tingling Neuro Denies dizziness, Denies headache(s), Denies numbness, Denies tingling, Denies paresthesias and Denies weakness Psych Denies anxiety and Denies depression Endo Denies fatigue Aller/Immun Denies wheezing Physical exam (Primary Care) Vital Signs: Last Vital Signs Temp 97.8 F 06/06/24 14:33 Pulse 93 06/06/24 14:33 Resp 14 06/06/24 14:33 BP 120/70 06/06/24 14:33 Pulse Ox 97 06/06/24 14:33 Oxygen Delivery Method Room Air 06/06/24 14:33 BMI result Body Mass Index 22.9 Tobacco/Smoking Status: Tobacco use Status Tobacco use date assessed 01/29/23 06/06/24 14:29 Patient Tobacco Use Status Never used Tobacco 06/06/24 14:29 e-Cigarette/Vaping Use Never Used 06/06/24 14:29 PHQ-9: PHQ-9 Score PHQ-9: Total score 0 06/06/24 14:29 Thrive Assessment: Date of Thrive Assessment Date Thrive assessed 05/30/24 06/06/24 14:29 Currently or been in a relationship where the following occur: No concerns reported Const General: no acute distress and well developed Nutritional Appearance: well nourished Orientation/consciousness: patient oriented x3 HENMT Head: Yes normocephalic and Yes atraumatic Eyes General: appearance normal, both eyes and all related structures Pupils: Equal, round and reactive pupils present EOM: EOMs intact bilaterally Resp Effort & Inspection: normal respiratory effort Auscultation: clear to auscultation bilaterally Cardio Rate: regular rate Rhythm: regular rhythm Heart sounds: S1 normal heart sound present, S2 normal heart sound present, no gallops, no murmurs and no rubs Neuro General: patient oriented x3 and gait normal Cranial nerves: Yes Equal, round and reactive pupils present Psych Affect: normal affect Coding Level of Care Code Est Pt Level 4 (39884) Diagnoses Pre-diabetes R73.03 Elevated LDL cholesterol level E78.00 Elevated liver enzymes R74.8 Moderate persistent asthma without complication J45.40 Asthma complication type: uncomplicated Asthma persistence: persistent Asthma severity: moderate Assessment & Plan Assessment & Plan (1) Pre-diabetes: Code(s): R73.03 - Prediabetes Category: Medical Plan: A1c?5.7%. No?recent?prednisone?or?steroid?use. Encouraged?a?diet?lower?in?sugars?and?starches Maintain?healthy?weight Encouraged?exercise?as?tolerated Will?continue?to?monitor (2) Elevated LDL cholesterol level: Code(s): E78.00 - Pure hypercholesterolemia, unspecified Category: Medical Plan: Elevated?LDL?cholesterol.??Goal?is?less?than?100 HDL?ratios?are?good Encouraged?a?diet?lower?saturated?fats?and?cholesterol We?will?continue?monitor (3) Elevated liver enzymes: Code(s): R74.8 - Abnormal levels of other serum enzymes Category: Medical Plan: Mildly?elevated?AST Encouraged?good?hydration Maintain?healthy?weight Will?recheck?with?next?blood?draw (4) Asthma: Code(s): J45.909 - Unspecified asthma, uncomplicated Category: Medical Qualifiers: Asthma complication type: uncomplicated Asthma persistence: persistent Asthma severity: moderate Qualified Code(s): J45.40 - Moderate persistent asthma, uncomplicated Plan: Currently?controlled. Continue?inhaled?medications?as?prescribed Uses?short?course?prednisone?intermittently?as?needed Stable Orders: Orders Lipid Panel Today E78.00 - Pure hypercholesterolemia, unspecified, Z00.00 - Encounter for general adult medical examination without abnormal findings Hemoglobin A1c Today R73.01 - Impaired fasting glucose Comprehensive [place]. Panel Fast Today R73.01 - Impaired fasting glucose, Z00.00 - Encounter for general adult medical examination without abnormal findings
[2024-06-06 14:33] VITALS: BP 120/70; PULSE 93; RESP 14; TEMP 36.6; O2SAT 97; BMI 22.9
== END 2024-06-06 15:13 | disposition home or self-care (01) ==
PROVIDERS: PCP Family Medicine; Visit Provider Family Medicine
DX: R73.03 Prediabetes (principal); E78.00 Pure hypercholesterolemia, unspecified; R74.8 Abnormal levels of other serum enzymes; J45.40 Moderate persistent asthma, uncomplicated

== ENCOUNTER → 2024-06-06 14:26 | Outpatient (BNVA) | payer MEDICARE, SELFPAY | PROVIDERS: PCP Family Medicine; Visit Provider Family Medicine | DX: R73.03 Prediabetes (principal); E78.00 Pure hypercholesterolemia, unspecified; R74.8 Abnormal levels of other serum enzymes; J45.40 Moderate persistent asthma, uncomplicated | CPT/HCPCS: 99212 ==

== ENCOUNTER 2024-08-30 10:16 | Outpatient (REF) | payer MEDICARE, SELFPAY ==
--- OUTSIDE RECORDS SUMMARY | 2024-08-30 11:43 | XMS_ITS | Data Portability ---
Author Organization [place] [facility], Allergy Address [address] [address] Care Team Providers Care Filter Press Pumper Name Role Phone [facility] Primary Care Trevor meek Assessment [...] her request. [email or web address] Not available 04/28/2024 10:53:34 06/27/2024 06/27/2024 73 year old female presents for follow up of epistaxis. Nasal examination today did not identify a prominent bleeding source. Recommend medical management with saline nasal spray 4-6 times daily, K-Y jelly at night, Afrin with episodes of bleeding. She will follow up as needed. [email or web address] Not available 06/27/2024 13:52:16 Plan of Treatment Reminders Order Date Submit Date Provider Last Modified By Organization Details Last Modified Time Details Appointments None record ed. Lab None record ed. Referral None record ed. Procedures None record ed. Surgeries None record ed. Imaging None record ed. Medication Orders None record ed. Patient TargetsNo targets recorded. Patient InstructionsNo instructions recorded. Reason for Referral None Reported. Problems Name Problem SNOMED Code Status Onset Date Resolution Date Notes Provider Name and Address Organization Details Recorded Time Bleeding from nose [id number] [facility] Annamaria schulz [place] - [facility] 13:50:18 Anterior epistaxis [id number] [facility] 024 Annamaria schulz [place] - [facility] 15:52:32 Problem Notes None recorded. Procedures Surgical History Date Name Laterality Status Provider Name and Address Organization Details Recorded Time 03/31/20 24 Epistaxis Anterior/Comple x Left completed ANNA ZAMUDIO PA-C [address] [place] [address],[address], [address], [place] - [facility] 03/31/2024 16:16:04 02/15/20 24 Epistaxis Simple Nasal Cautery Left completed Annamaria Gil [place] - [facility] 02/15/2024 15:53:30 01/21/20 24 Epistaxis Simple Nasal Cautery Right completed Annamaria Gil [place] - [facility] 01/21/2024 13:50:11 04/27/19 23 mammogram - symptomatic completed Aisha Sahh [place] - [facility] 01/21/2024 13:20:00 Cerv cancer screen docd completed Aisha Shah [place] - [facility] 01/21/2024 13:19:35 colonoscopy completed Aisha Shah [place] - [facility] 01/21/2024 13:20:19 Imaging Results None recorded. Procedure [...] Available Vitals Date Recorded Body height Body weight Provider Name and Address Organization Details Last Updated DateTime 06/27/2024 160.02 cm 26504.05 g Leonie Pascal [place] [facility] 06/27/2024 12:58:48 Date Recorded Body height Body mass index (BMI) Body weight Provider Name and Address Organization Details Last Updated DateTime 01/21/2024 162.56 cm 21.5 kg/m2 60880.05 g Aisha Shah [place] [facility] 01/21/2024 13:04:40 Date Recorded Body height Body mass index (BMI) Body weight Provider Name and Address Organization Details Last Updated DateTime 02/15/2024 162.56 cm 21.5 kg/m2 89753.05 g Mariana Felipe [place] [facility] 02/15/2024 15:24:15 Date Recorded Body height Body mass index (BMI) Body weight Provider Name and Address Organization Details Last Updated DateTime 03/31/2024 162.56 cm 21.5 kg/m2 02425.05 g Aisha Shah [place] [facility] 03/31/2024 15:25:25 Date Recorded Body height Body mass index (BMI) Body weight Provider Name and Address Organization Details Last Updated DateTime 04/28/2024 160.02 cm 22.1 kg/m2 68282.05 g Melody Gunderson [place] [facility] 04/28/2024 10:46:32 Social History Question Answer Notes LastModified by Organizat ion Details LastModified Time Tobacco Smoking Status Never Smoker Aisha schulz [place] - [facility] 01/21/2024 13:05:43 What Is Your [...] schulz [place] - [facility] 01/21/2024 13:05:10 Past Encounters Encounter ID Performer Location Encounter Start Date Encounter Closed Date Diagnosis/Indication Diagnosis SNOMED-CT Code Diagnosis ICD10 Code Diagnosis Note [id number] ANNAMARIA GIL PA-C [facility] on [address] [place] [address] 10118-503 2 01/21/2024 12:48:06 01/21/2024 13:51:29 Bleeding from nose 822078537 R04.0 [id number] ANNAMARIA GIL PA-C [facility] on [address] [place] [address] 56386[address] 2 02/15/2024 15:22:35 02/15/2024 15:47:09 Anterior epistaxis 590443896 R04.0 [id number] ANNA ZAMUDIO PA-C [facility] on [address] [place] [address] 15084-572 2 03/31/2024 15:17:46 03/31/2024 15:46:39 Bleeding from nose 107123279 R04.0 [id number] ANNA ZAMUDIO PA-C [facility] on [address] [place] [address] 38605-173 2 04/28/2024 10:40:54 04/28/2024 10:53:54 Bleeding from nose 872598302 R04.0 [id number] ANNA ZAMUDIO PA-C [facility] on [address] [place] [address] 75367-982 2 06/27/2024 12:47:05 06/27/2024 13:14:41 Anterior epistaxis 255651968 R04.0 Health Concerns Section Related Observation LastModified by Organization Detai ls LastModified Time None Recorded Concern Status LastModified by Organization Details LastModified Time None Recorded Advance Directives Directive None Recorded Payers Encounter Date Sequence Insurance Name Policy Number Policy Schuster Covered Member ID Schuster Member ID Guarantor Name 01/21/2024 1 [employer] MED[employer]ARE [employer]VANTAGE PLAN (MEDICARE REPLACEMENT HMO) [id number] Callie M M Magy [id number] Callie M Magy 02/15/2024 1 [employer] MED[employer]VANTAGE PLAN (MEDICARE REPLACEMENT HMO) [id number] Callie M M Magy [id number] Callie M Magy 03/31/2024 1 [employer]AGE PLAN (MEDICARE REPLACEMENT HMO) [id number] Callie M M Magy [id number] Callie M Magy 04/28/2024 1 [employer] PLAN (MEDICARE REPLACEMENT HMO) [id number] Callie M M Magy [id number] Callie M Magy 06/27/2024 1 [employer] PLAN (MEDICARE REPLACEMENT HMO) [id number] Callie M M Magy [id number] Callie Hernandez Magy Notes Date Note Type Note Provider Name and Address Organization Details Recorded Time 01/21/2024 text/html 73 year old giovana luna presents today for evaluation of epistaxis.She reports a long history of epistaxis. They have been more frequent since she relocated to [place] from [place]. The bleeding is bilateral. It usually lasts about 20-30 minutes. Sometimes they are big clots associated with the bleeding. Her last nosebleed was this morning from the right nostril.She has a previous history of electrocautery while living in [place]. She has also seen in the past who did silver nitrate cautery x 3.She is currently using a nasal rinse with xlylitol and [place] gel. She has found this somewhat helpful. She will also use the rinse when the nose is bleeding as this seems to help. History of septoplasty and turbinate reduction many years ago in [place]. Annamaria schulz [place] - [facility] 01/21/2024 13:57:51 02/15/2024 text/html 73 year old giovana luna with epistaxis.One month ago she was seen and had right sided cautery performed. She has had very limited bleeding from the right nostril. She has had some bleeding on the left and would like the left side cauterized today. Annamaria schulz [place] - [facility] 02/15/2024 15:53:47 03/31/2024 text/html 73 year old [...] does nasal rinse with Xylitol and uses [place] gel. NETTE LOOMIS MD [address] [facility],[address], [address], [facility] - [facility] 04/01/2024 09:09:25 04/28/2024 text/html 73 year old giovana luna presents for follow up of epistaxis. She has done well since the cautery. She has not had a nosebleed in weeks. She is using nasal saline and gel. NETTE LOOMIS MD 100 [facility],[address], [address], [place] [facility] 04/28/2024 12:43:09 06/27/2024 text/html 73 year old giovana luna presents for follow up of epistaxis. She is status post cautery on the left on 02/15/24 and 03/31/24. She reports that she will occasionally have a small amount of bleeding from the left nostril that requires blotting with a tissue. No melissa epistaxis. Her symptoms are significantly improved from prior to the cautery. AIDA RAO MD [address] [facility],[address], [address], [place] [facility] 06/28/2024 07:48:27 OBGyn Episode No OBEpisode recorded.
[2024-08-30 11:52] LABS: Estimated Average Glucose 120 mg/dL; Hemoglobin A1C 148.9688 umol/L; Hemoglobin A1c % 5.8 % (<6.0); Total Hemoglobin (HGBA1C) 3782.1631 umol/L
[2024-08-30 18:08] LABS: Alanine Aminotransferase 25 U/L (0-31); Albumin Level 4.5 g/dL (3.5-5.0); Alkaline Phosphatase 61 U/L (39-117); Anion Gap 11 (12-20); Aspartate Amino Transferase 27 U/L (5-31); Bilirubin Total 0.6 mg/dL (0.0-1.0); Blood Urea Nitrogen 13 mg/dL (9-16); Calcium 9.1 mg/dL (8.4-10.2); Carbon Dioxide 29 mmol/L (22-29); Chloride 103 mmol/L (96-108); Cholesterol 228 mg/dL (<200); Estimated Glomerular Filt Rate > 60; Glucose Fasting 101 mg/dL (60-99); HDL Cholesterol 91 mg/dL (>40); LDL Cholesterol Calculated 124 mg/dL (<100); Potassium 4.4 mmol/L (3.3-5.1); Sodium 139 mmol/L (135-145); Total Protein 6.9 g/dL (6.5-8.0); Triglycerides 67 mg/dL (<150)
== END 2024-08-30 10:17 | disposition home or self-care (01) ==
LOC: HO.WFDLDS 10:16
PROVIDERS: Visit Provider Family Medicine
DX: Z00.00 Encounter for general adult medical examination without abnormal findings (principal); R73.01 Impaired fasting glucose; E78.00 Pure hypercholesterolemia, unspecified
CPT/HCPCS: 36415; 80053; 80061; 83036

== ENCOUNTER 2024-09-05 14:21 | Outpatient (AMB) | payer MEDICARE, SELFPAY ==
--- NOTE | 2024-09-05 14:31 | MHC.PC.OV ---
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: No Allergies No Known Allergies [No Known Allergies*] Allergy (Verified 09/05/24 14:37) Cats Allergy (Mild, Uncoded 02/10/23 15:12) aggrevates asthma Dust Allergy (Mild, Uncoded 02/10/23 15:12) cogestion Mold Allergy (Mild, Uncoded 02/10/23 15:12) allergy Trees Allergy (Mild, Uncoded 02/10/23 15:12) asthma aggravated Medication List - Last Reconciled 09/05/24 by Calvin Rasmussen MD albuterol sulfate 90 mcg/actuation 2 puffs inhalation Q6H 90 days fluticasone propionate 110 mcg/actuation 2 puffs inhalation BID 90 days prednisone 20 mg PO DAILY 90 days Tobacco use date assessed: 01/29/23 Dental Screening Dental Screen Date: 01/29/23 HPI f/u elevated FBS, labs HPI Details 73 y/o female presents to f/u prediabetes, HLD, liver enzymes, and asthma. Last A1c 05/30/24 5.7%. Labs drawn 08/30/24. Reviewed labs with pt. A1c 5.8%. Liver enzymes back to normal range. Triglycerides 67. TC 228. LDL 124. HDL 91. Pt notes she has not been working on a better diet. HPI Comments History of Present Illness Details Documentation assistance for Calvin Rasmussen MD, was provided by Jaime Lopez,? Systems Test Technician on 09/05/2024 at 2:43 PM EST. I, Dr. Rasmussen, have read, observed, and verified documentation. PFSH Medical History (Updated 06/06/24 @ 15:13 by Jaime Lopez) Seasonal allergies Chronic GERD Hypertension Surgical History (Updated 02/10/23 @ 15:12 by Magali De La Rosa) S/P removal of right ovary History of removal of ovarian cyst History of appendectomy History of nasal surgery History of tonsillectomy History of bilateral tubal ligation History of cholecystectomy Family History (System 02/10/23 @ 15:12 by Magali De La Rosa) Father CHF (congestive heart failure) Mother Kidney failure Brother COPD (chronic obstructive pulmonary disease) Social History (System 02/10/23 @ 15:12 by Magali De La Rosa) Housing: House Alcohol intake: current Alcohol intake frequency: holidays/special occasions only Patient Tobacco Use Status: Never used Tobacco e-Cigarette/Vaping Use: Never Used Second Hand Smoke Exposure: No service: No Current occupational status: retired Current occupational exposures/hazards: No Cognitive needs: No Hearing needs: No Vision needs: No Questionnaire Thrive Questionnaire Date Thrive assessed: 05/30/24 I am a: Patient What is your living situation today?: I have a steady place to live Within the past 12 months, did the food you bought not last and you didn't have the money to get more?: Never true Within the past 12 months, did you worry whether your food would run out before you got money to buy more?: Never true Do you have trouble paying for medicines?: No Do you have trouble getting transportation to medical appointments?: No Do you have trouble paying your heating and electricity bill?: No Do you have trouble taking care of your child, family member or friend?: No Do you have trouble with day-to-day activities such as bathing, preparing meals, shopping, managing finances, etc.?: No Are you currently unemployed and looking for a job?: No Are you interested in more education?: No Please select the resources that you would like help with: None Currently or been in a relationship where the following occur: No concerns reported THRIVE Score: 0 SAMUEL-7 AMB Questionnaire SAMUEL-7 Date SAMUEL - 7 assessed: 04/30/22 Source: Developed by Drs. Jignesh Ford, Sunshine Min, Adis Lopez and colleagues, with an educational tigre from [employer]. Review of Systems Const Denies chills, Denies fatigue, Denies fever(s), Denies headache(s) and Denies weakness ENT Denies dizziness and Denies headache(s) Card Denies dyspnea Resp Denies cough, Denies dyspnea, Denies wheezing and Denies other (shortness of breath) Musc Denies numbness and Denies tingling Neuro Denies dizziness, Denies headache(s), Denies numbness, Denies tingling and Denies weakness Psych Denies anxiety and Denies depression Endo Denies fatigue Aller/Immun Denies wheezing Physical exam (Primary Care) Vital Signs: Last Vital Signs Temp 99.6 F 09/05/24 14:37 Pulse 85 09/05/24 14:37 Resp 10 L 09/05/24 14:37 BP 110/70 09/05/24 14:37 Pulse Ox 96 09/05/24 14:37 Oxygen Delivery Method Room Air 09/05/24 14:37 BMI result Body Mass Index 22.8 Tobacco/Smoking Status: Tobacco use Status Tobacco use date assessed 01/29/23 09/05/24 14:32 Patient Tobacco Use Status Never used Tobacco 09/05/24 14:32 e-Cigarette/Vaping Use Never Used 09/05/24 14:32 Thrive Assessment: Date of Thrive Assessment Date Thrive assessed 05/30/24 09/05/24 14:32 Currently or been in a relationship where the following occur: No concerns reported Const General: well developed; No acute distress Nutritional Appearance: well nourished Orientation/consciousness: patient oriented x3 HENMT Head: Yes normocephalic and Yes atraumatic Eyes General: appearance normal, both eyes and all related structures Pupils: Equal, round and reactive pupils present EOM: EOMs intact bilaterally Resp Effort & Inspection: normal respiratory effort Neuro General: patient oriented x3 and gait normal Cranial nerves: Yes Equal, round and reactive pupils present Psych Affect: normal affect Coding Level of Care Code Est Pt Level 4 (35473) Diagnoses Pre-diabetes R73.03 Elevated LDL cholesterol level E78.00 Elevated liver enzymes R74.8 Moderate persistent asthma without complication J45.40 Asthma complication type: uncomplicated Asthma persistence: persistent Asthma severity: moderate Seasonal allergies J30.2 Assessment & Plan Assessment & Plan (1) Pre-diabetes: Code(s): R73.03 - Prediabetes Category: Medical Plan: A1c?climbed?slightly?from?5.7%?to?5.8%.??Still?in?pre?diabetes?range Encouraged?lifestyle?changes She?also?uses?prednisone?intermittently?for?asthma?exacerbations?and?this?may?be?affecting?her?blood?sugars?also (2) Elevated LDL cholesterol level: Code(s): E78.00 - Pure hypercholesterolemia, unspecified Category: Medical Plan: LDL?cholesterol?had?been?rather?high?in?the?140s?and?she?was?able?to?bring?this?down?to?121.??Most?recently?124.??Still?high?as?goal?is?less?than?100 Briefly?discussed?medications?including?Zetia. Patient?does?not?want?to?consider?medication Encouraged?lifestyle?changes?? (3) Elevated liver enzymes: Code(s): R74.8 - Abnormal levels of other serum enzymes Category: Medical Plan: Mildly?elevated?liver?enzymes?previously. Recheck?shows?liver?enzymes?are?within?normal?range We?can?monitor?periodically Hydrate?well (4) Asthma: Code(s): J45.909 - Unspecified asthma, uncomplicated Category: Medical Qualifiers: Asthma complication type: uncomplicated Asthma persistence: persistent Asthma severity: moderate Qualified Code(s): J45.40 - Moderate persistent asthma, uncomplicated Plan: Asthma?is?fairly?well?controlled Continue?inhaled?medications Avoid?allergy?triggers (5) Seasonal allergies: Code(s): J30.2 - Other seasonal allergic rhinitis Category: Medical Plan: As?above,?avoid?allergy?triggers Use?Flonase?as?tolerated Use?nasal?saline Orders: Orders Lipid Panel Today Z00.00 - Encounter for general adult medical examination without abnormal findings UA CC w/rflx Micro + Cult Today Z00.00 - Encounter for general adult medical examination without abnormal findings TSH reflex Free T4 Today Z00.00 - Encounter for general adult medical examination without abnormal findings Comprehensive [place]. Panel Fast Today Z00.00 - Encounter for general adult medical examination without abnormal findings Complete Blood Count Auto Diff Today Z00.00 - Encounter for general adult medical examination without abnormal findings Microalbumin, Random (w Creat) Today I10 - Essential (primary) hypertension
--- OUTSIDE RECORDS SUMMARY | 2024-09-05 14:34 | XMS_ITS | Data Portability ---
Author Organization [place] - [facility] Address [address] [place] [id number] Care Team Providers Care Network Consultant Name Role Phone [facility] OTHER [phone] Assessment Encounter Date Assessment Date Assessment LastModified by Organization Details LastModified Time 03/06/2018 03/06/2018 Overview/History : 67 year-old female who is known to [facility] called for epistaxis. The patient has history of nosebleeds as well as seasonal allergies. She is not on anticoagulation or antiplatelet therapy. She had had intermittent bleeding from both nares starting last night and throughout the night. The patient reports that she was coughing up some clots. She does not currently have bleeding gave the patient attempted to control the epistaxis with compression and ice. Exam: Kar-Synephrine was inserted to both naris and soaked in cotton before being inserted into both nares. After 10 minutes the area was inspected and showed no evidence of active bleeding. No bleeding in the posterior pharynx. DDx considered, but not limited to: Posterior epistaxsis unlikely as bleeding controlled with Kar-synephrine and compression. Work up/Results: Plan/Discussion: Discussed with patient need to apply pressure to the soft part of the nose while keeping her head down. If bleeding is not controlled after 20-30 minutes the patient should seek medical attention. She was advised to use Vaseline or bacitracin daily apply using a Q-tip to both Naris to keep mucous membranes moist. The patient will follow up with ENT as planned. Time On Scene with Patient: 00:29:05 [email or web address] Not available 03/06/2018 16:55:33 05/24/2018 05/24/2018 Overview/History : 67-year-old female, who was noted [facility], was evaluated for complaints of a fever, myalgias and a non productive cough. She has had some URI symptoms over the past few days, however, today the patient developed the subjective fever of 102.7 degrees Fahrenheit while at work. She has had some co-workers with similar symptoms. She complains of a headache and generalized body aches. Exam: Nontoxic although somewhat ill-appearing. No nuchal rigidity or meningismus signs. Lungs clear to auscultation bilaterally. Heart sounds tachycardic regular. No abdominal pain on palpation. No CVA tenderness. Moving upper and lower extremities without difficulty. Tachycardic 130 BPM. O2 sat 96%. Temp 99.3 degrees Fahrenheit (Pt took Tylenol 30 mins prior) DDx considered, but not limited to: Bronchitis. Influenza. Community-acquired pneumonia. Other infectious process. Pneumonia likely given no complaints of shortness of breath, normal O2 sat and clear lung sounds Influenza A likely diagnosis given patient's high fevers, myalgias and other coworkers with similar symptoms. Work up/Results: Rapid influenza A/B negative. Electrolytes within normal limits. Normal renal function. Plan/Discussion: Clinically the patient appears to have influenza. She is tachycardic at 1:30 p.m. The patient was treated with a normal saline bolus and some Toradol. Her myalgias improved. Her heart rate did decrease to 108 BPM. We discussed the pros and cons of taking Tamiflu the patient would prefer to be treated I think this is appropriate given that she started with a fever today. We discussed increasing her fluid intake over the next few days. The patient was advised to follow up with her PCP. If she develops any worsening headache, nuchal rigidity, abdominal pain, vomiting or any other concerning symptoms she was advised to call for reevaluation. In order to obtain further information and compare any laboratory results/values, I have accessed old patient records. This information was pertinent in my medical decision making today. Time On Scene with Patient: 00:57:28 Not available 05/24/2018 20:59:10 Plan of Treatment Reminders Order Date Submit Date Provider Last Modified By Organization Details Last Modified Time Details Appointments None recorded. Lab rapid flu (A+B) 2018 019 [facility], [address] [place] [address], [id number], 9 12:04:48 BMP + ionized calcium, serum or plasma 2018 [facility], [address] [place], [address], 19:49:43 Referral None recorded. Procedures None recorded. Surgeries None recorded. Imaging None recorded. Medication Orders sodium chloride 0.9 % intravenou s solution 2018 Not available 18:31:12 ketorolac 30 mg/mL (1 mL) injection solution 2018 Not available 18:31:13 Tamiflu 75 mg capsule 2018 INTERFACE [id number], [address] [place], [address], 19:54:03 Patient TargetsNo targets recorded. Patient Instructions Encounter Date Encounter Id Patient Instructions Last Modified By Organization Details Last Modified Time 03/06/2018 [id number] Nosebleed (epistaxis) Epistaxis occurs when the blood vessels close to the surface of the mucous membranes of the nose are damaged and begin to bleed. This can occur spontaneously but is more common in people who take blood thinners, are exposed dry environments such as occurs in the winter when homes are heated and with frequent nose picking. Packing: You may have had packing placed in your nasal cavity today. You need to have this packing removed in 2-3 days. You should see your primary care provider or Ear, Nose and Throat doctor for a re-check and to have this removed or the Nurse Practitioner at [facility] may arrange to come out and have it removed. Use some saline drops at the opening of your nasal cavity to keep the packing moist. The packing will absorb a bit of the saline like sponge. Re-bleeding: If the bleeding recurs (even if packing still in place), take the following steps: 1) sit up tall and bend your head down a bit. This position helps keep blood from going down the wind-pipe. Spitting the blood out into a cup is preferable. It is not dangerous to swallow the blood, but it can make you nauseated and could potentially cause your stools to turn black. 2) Use the nose clip or your fingers to pinch your nose shut for at least 10 minutes. Consider using a cold pack or ice over the bridge of the nose as this can help slow down bleeding. Use a protective layer such as a pillowcase in between the ice and your skin. 3) Consider squirting a few drops of NeoSynephrine or Afrin in the nose or onto the packing before you pinch your nose shut. 4) If the bleeding does not stop after 20 minutes, call your MD Prevention: Once the packing is removed, avoid further nosebleeds: 1) Use saline or some other qjyc-wkk-ppfuuzd nasal moisturizing drops (you can consult a pharmacist for recommendation) frequently throughout the day to keep mucous membranes moist. 2) Before bedtime, use a cotton swab or the tip of your pinky finger to place some vaseline on the mucous membranes on the inside lopez of your nose. 3) Do not pick your nose or use too much force when blowing your nose. 4) Consider using a humidifier, especially at night in the room where you sleep Seek Care Immediately: 1) if you develop fever or vomiting 2) if the packing becomes soaked with blood (some amount of pink or even red tinged mucus or saliva is expected) 3) if you develop swelling or redness in the skin around your eyes 4) if you have severe pain that is not better with regular over-the counter pain medicines or medicine that you are prescribed for pain 5) if you begin to bleed and it does not stop after you have followed the advice above 6) if you develop foul smelling discharge from your nose 7) if you feel weak, faint or have trouble breathing or talking If you develop any new or worsening symptoms and need after hours care, please go to nearest ER and/or call 911. If you have additional concerns or develop a change in your condition between 8am-10pm, please call [facility] at [phone] to help navigate your care. sarah Not available 03/06/2018 09:27:37 05/24/2018 [id number] influenza (flu): care instructions sarah Not available 05/24/2018 19:52:56 [facility] We cannot always find the exact cause of your symptoms during your initial visit. Please follow up with your primary care provider or specialist within 12-24 hours within 24-48 hours to be rechecked or seek medical attention if your symptoms do not go away or get worse. If you develop any new or worsening symptoms and need after hours care, please go to nearest ER and/or call 911. If you have additional concerns or develop a change in your condition between 8am-10pm, please call [facility] at [phone] to help navigate your care. Viral Illness Discharge Instructions BASIC INFORMATION A viral infection can range anywhere between a common cold and influenza. Most viruses will respond to a combination of time and supportive care. Viruses are eliminated by the bodies immune system and do not respond to antibiotics. Viruses can cause many different symptoms including runny stuffy nose, sore throat, headache, fever, body aches, cough, nausea, vomiting,diarrhea. Most of the viral illnesses are spread by hand to face contact, and the rest are spread through sneezing and coughing which releases virus into the air. Over the counter medications can help to relieve annoying symptoms. Occasionally having a virus may cause a secondary bacterial infection such as ear infections, pneumonia, sinusitis. INSTRUCTIONS Keeping your body as healthy as possible will help to limit your illness. Get plenty of rest Drink lots of fluids (water, herbal tea, gatorade) Reduce your risk of getting or giving a cold by avoiding touching your face with your hands. When you cough and sneeze cover your mouth/nose by placing your elbow or upper arm over the area rather than using your hand. Use a teaspoon of honey(avoid organic honey in infants and small children < 1 year) at bedtime to soothe your throat and ease cough. Sleep with head of bed elevated to promote drainage of secretions. Hot showers and humidifiers can help to loosen secretions. Tylenol over the counter can be helpful for aches and fever. Suck on hard, sugar-free candy during the day to keep the throat moist. MEDICATIONS Over the counter remedies are not recommended for young children, but can help relieve symptoms temporarily in adults. In general it is better to take only the medication you need rather than using combination products that contain ingredients that are unnecessary and may cause side effects. 1. Antihistamines (Benadryl, Chlor-Trimeton, Zyrtec, Claritin, Clarita) reduce secretions, but can cause drowsiness and sedation, do not drink alcohol or drive while taking these medications. 2. Decongestants (Phenylephrine, Sudafed) can help to shrink swollen nasal passages and dry secretions, but may cause palpitations, anxiety,and are not safe for people with High blood pressure or heart arrhythmias. 3. Topical Decongestants (Afrin/Kar-synephr ine) can be very helpful for acute relief of nasal swelling and runny nose, HOWEVER they should not be used regularly for more than 3 days as they will cause rebound congestion if over-used. 4. Cough aids generally contain DM( Dextromethorphan) which is a cough suppressant and Guaifenesin which is an expectorant. While the DM portion can be helpful for suppressing the cough, guaifenesin, particularly as dosed in Mucinex like products has minimal effect and may cause nausea. 5. Tamiflu an anti-viral agent may be prescribed if you are diagnosed with influenza. Viral symptoms usually last between 5-10 days, it is not uncommon to have a mild cough for up to 6 weeks afterward. If you have been diagnosed with influenza you should minimize your contact with others. You may return to work/school after 24 hours of being fever free without medication (usually 5-10 days). FOLLOW UP if your symptoms are not improving in 7-10 days If you have severe ear pain, sinus pain, cough productive large amounts of mucus, wheezing. You have underlying medical problems that may become worse as a result of your viral illness (asthma, diabetes, COPD) and need to follow up to ensure you are improving. SEEK CARE IMMEDIATELY IF 1 Severe headache unresponsive to Tylenol or severe neck stiffness 2. Confusion 3. Severe chest pain 4. Difficulty breathing 5. Persistent vomiting 6. Cough productive large amounts of sputum or blood 7. Inability to keep liquids down 8. Fever unresponsive to medication over 102 If you develop any new or worsening symptoms and need after hours care, please go to nearest ER and/or call 911. If you have additional concerns or develop a change in your condition between 8am-10pm, please call [facility] at [phone] to help navigate your care. Not available 05/24/2018 19:50:25 Reason for Referral None Reported. Results Created Date Observation Date Name Description Value Unit Range Abnormal Flag Note LastModifiedBy Organization Detail LastModifiedTime 05/24/19 19 05/24/2018 BMP + ioniz ed calci um, serum or plasm a Na 137 mmol/ L 136-14 5 Not Available [facility] [address] [place], [address], 05/24/2018 19:48:04 05/24/19 19 05/24/2018 BMP + ioniz ed calci um, serum or plasm a K 3.7 mmol/ L 3.5-5. 1 Not Available [facility] [address] [place], [address], 05/24/2018 19:48:04 05/24/1905/24/2018 BMP + ioniz ed calci um, serum or plasm a cL 100 mmol/ L 96-111 Not Available [facility] [address] [place], [address], 05/24/2018 19:48:04 05/24/1905/24/2018 BMP + ioniz ed calci um, serum or plasm a ica 1.17 mmol/ L 1.1-1. 4 Not Available [facility] [address] [place], [address], 05/24/2018 19:48:04 05/24/1905/24/2018 BMP + ioniz ed calci um, serum or plasm a TCO2 23 mmol/ L 20-30 Not Available [facility] [address] [place], [address], 05/24/2018 19:48:04 05/24/1905/24/2018 BMP + ioniz ed calci um, serum or plasm a glu 157 mg/dL 70-115 Not Available [facility] [address] [place], [address], 05/24/2018 19:48:04 05/24/1905/24/2018 BMP + ioniz ed calci um, serum or plasm a BUN 11 mg/dL 6-24 Not Available [facility] [address] [place], [address], 05/24/2018 19:48:04 05/24/19 19 05/24/2018 BMP + ioniz ed calci um, serum or plasm a crea 0.6 mg/dL .65-1. 36 Not Available [facility] [address] [place], [address], 05/24/2018 19:48:04 05/24/19 19 05/24/2018 BMP + ioniz ed calci um, serum or plasm a HCT 45 %_pcv 40.6-5 0.3 Not Available [facility] [address] [place], [address], 05/24/2018 19:48:04 05/24/19 19 05/24/2018 BMP + ioniz ed calci um, serum or plasm a Hb 15.3 g/dL 13.9-1 7.4 Not Available [facility] [address] [place], [address], 05/24/2018 19:48:04 05/24/1905/24/2018 BMP + ioniz ed calci um, serum or plasm a angap 19 mmol/ L 6-18 Not Available [facility] [address] [place], [address], 05/24/2018 19:48:04 05/24/1905/24/2018 rapid flu (A+B) Flu A negati ve Not Available [facility] [address] [place], [address], 05/24/2018 19:38:15 05/24/1905/24/2018 rapid flu (A+B) Flu B negati ve Not Available [facility] [address] [place], [address], 05/24/2018 19:38:15 Result Notes None recorded. Procedures Surgical History Date Name Laterality Status Provider Name and Address Organization Details Recorded Time 9 IV Start Procedure - completed SILVIA MICHELLE NP [address] [place], [address], [place] - [facility] 05/24/2018 21:18:18 8 Epistaxis - DH completed SILVIA MICHELLE, RENETTA [address], [place], [address], [place] [facility] 03/06/2018 09:53:26 Imaging Results None recorded. Procedure Notes None recorded. Medical Equipment None Reported. Allergies No known drug allergies Medications Name Sig Start Date Stop Date Status Note LastModified by Organization Details LastModified Time prednisone 10 mg tablet 03/06 completed Not Available Not Available Not Available azithromyci n 250 mg tablet 03/06 completed Not Available Not Available Not Available Tamiflu 75 mg capsule Take 1 capsule twice a day by oral route. 2018 active Not Available Not Available Not Avai lable ketorolac 30 mg/mL (1 mL) injection solution 15 mg IV administe red on scene. Time administe red: 19:45 2018 active Not Available Not Available Not Avai lable meloxicam 7.5 mg tablet 03/06 completed Not Available Not Available Not Available omeprazole 20 mg capsule,del ayed release 03/06 completed Not Available Not Available Not Available mupirocin 2 % topical ointment active Not Available Not Available Not Available sodium chloride 0.9 % intravenous solution 1 L administe red on scene. Time administe red: 19:45 2018 active Not Available Not Available Not Avai lable epinephrine 0.3 mg/0.3 mL injection, auto-inject or 05/24 completed Not Available Not Available Not Available methylpredn isolone 4 mg tablets in a dose pack 05/24 completed Not Available Not Available Not Available Ventolin HFA 90 mcg/actuati on aerosol inhaler active Not Available Not Available Not Available neomycin 3.5 mg/g-polymy jacinda B 10,000 unit/g-dexa meth 0.1 % eye oint 03/06 completed Not Available Not Available Not Available Fluzone High-Dose (PF) 180 mcg/0.5 mL intramuscul ar syringe 03/06 completed Not Available Not Available Not Available Vitals Date Recorded Body temperature Heart rate Respiratory rate Oxygen saturation Oxygen saturation in Arterial blood by Pulse oximetry Systolic blood pressure Diastolic blood pressure Provider Name and Address Organization Details Last Updated DateTime 8 98.6 [degF] 87 /min 20 /min 97 % 97 % 149 mm[Hg] 850 mm[Hg] RACHNA BARRIENTOS, RENETTA [address], [place], [address], [place] - [facility] 8 16:23:57 Date Recorded Heart rate Oxygen saturation Oxygen saturation in Arterial blood by Pulse oximetry Respiratory rate Body temperature Heart rate Systolic blood pressure Diastolic blood pressure Provider Name and Address Organization Details Last Updated DateTime 9 130 /min 96 % 96 % 18 /min 99.3 [degF] 108 /min 128 mm[Hg] 58 mm[Hg] Not Available [facility] 9 19:19:34 Social History Question Answer Notes LastModified by Organizat ion Details LastModified Time Tobacco Smoking Status Never Smoker SILVIA MICHELLE NP [address], [place], [address], [place] [facility] 03/06/2018 09:03:03 Within The Past 12 Months, Has It Happened That The Food You Bought Just Didn't Last And You Didn't Have Money To Get More. Normal Information not available 03/06/2018 Within The Past 12 Months, Have You Worried That Your Food Would Run Out Before You Got Money To Buy More. No: Trouble Affording Healthy Foods Information not available 03/06/2018 Fall Risk: Do You Feel Unsteady When Standing Or Walking? No Information not available 03/06/2018 What Was The Date Of Your Most Recent Tobacco Screening? 03/06/2018 Information not available 11/18/2018 Sex: Unknown Functional Status None recorded. Mental Status None recorded. Family History Relationship Description Onset Age of this Age Resolved Age Notes LastModified by Organization Details LastModified Time Father Congestive heart failure Not available 03/06 09:01:54 Mother Kidney disease Not available 03/06 09:02:45 Medical History Condition Response Asthma Y Gynecological HistoryNo gynecological history recorded. Obstetrics History GPAL:G 0 P 0 0 0 0 Past Encounters Encounter ID Performer Location Encounter Start Date Encounter Closed Date Diagnosis/Indication Diagnosis SNOMED-CT Code Diagnosis ICD10 Code Diagnosis Note [id number] SILVIA MICHELLE NP [facility] [address] [place] [address] 03/06/2018 08:40:27 03/06/2018 17:00:45 Anterior epistaxis 764923150 R04.0 [id number] SILVIA MICHELLE NP [facility] [address] [place] [address] 05/24/2018 19:13:42 05/24/2018 21:31:00 Fever 862777846 R50.9 Health Concerns Section Related Observation LastModified by Organization Detai ls LastModified Time None Recorded Concern Status LastModified by Organization Details LastModified Time None Recorded Advance Directives Directive None Recorded Payers Insurance Date Sequence Insurance Name Policy Number Policy Schuster Covered Member ID Schuster Member ID Guarantor Name 03/05/2018 1 *SELF PAY* Callie Bhatti [id number] Callie Bhatti 05/29/2018 1 [facility] - MEDICARE ADVANTAGE PLAN (MEDICARE REPLACEMENT HMO) [id number] Callie Bhatti [id number] Callie Bhatti Notes Date Note Type Note Provider Name and Address Organization Details Recorded Time 03/06/2018 text/html 67-year-old giovana luna [facility] with complaints of epistaxis that started yesterday. The patient has a long history of nosebleeds and usually can get them to stop on her own. She has had intermittent bleeding throughout the night with multiple clots. The patient is not on any anticoagulation or antiplatelet therapy. The bleeding was from both nares although has currently stopped. She has an appointment with ENT in 1 month. RACHNA BARRIENTOS NP [address], [place], [address], [place] [facility] 03/06/2018 16:56:04 05/24/2018 text/html 67-year-old giovana luna, who [facility] was evaluated for complaints of a fever, headache and a slight cough. She has had a slight nonproductive cough over the past few days. Today, while the patient was at work she developed a fever of 102.7 degrees Fahrenheit, myalgias and a headache. There have been multiple coworkers ill with similar symptoms. She denies any vision changes, neck pain, chest pain, shortness of breath, back pain, abdominal pain, dysuria, hematuria, or any rashes. SILVIA MICHELLE NP [address] [place] [address], [address], [place] [facility] 05/24/2018 21:18:22 OBGyn Episode No OBEpisode recorded.
--- OUTSIDE RECORDS SUMMARY | 2024-09-05 14:34 | XMS_ITS | Data Portability ---
Author Organization [place] - [facility], Allergy Address [address] [address] Care Team Providers Care Administrative Job Titles Name Role Phone [facility] OUTPATIENT Primary Care Trevor meek Assessment Encounter [...] Organization Details Recorded Time Bleeding from nose [id number] [facility] Annamaria schulz [place] - [facility] 13:50:18 Anterior epistaxis [id number] [facility] 024 Annamaria schulz [place] - [facility] 15:52:32 Problem Notes None recorded. Procedures Surgical History Date Name Laterality Status Provider Name and Address Organization Details Recorded Time 03/31/20 24 Epistaxis Anterior/Comple x Left completed ANNA ZAMUDIO PA-C [address] [place] [address],[address], [address], [place] - [facility] 03/31/2024 16:16:04 02/15/20 24 Epistaxis Simple Nasal Cautery Left completed Annamaria Gil [place] - [facility] 02/15/2024 15:53:30 01/21/20 24 Epistaxis Simple Nasal Cautery Right completed Annamaria Gil [place] - [facility] 01/21/2024 13:50:11 04/27/19 23 mammogram - symptomatic completed Aisha Shah [place] - [facility] 01/21/2024 13:20:00 Cerv cancer screen docd completed Aisha Shah [place] - [facility] 01/21/2024 13:19:35 colonoscopy completed Aisha Shah [place] - [facility] 01/21/2024 13:20:19 Imaging Results None recorded. Procedure [...] Details Last Updated DateTime 06/27/2024 160.02 cm 07711.05 g Leonie Pascal [place] [facility] 06/27/2024 12:58:48 Date Recorded Body height Body mass index (BMI) Body weight Provider Name and Address Organization Details Last Updated DateTime 01/21/2024 162.56 cm 21.5 kg/m2 68742.05 g Aisha Shah [place] [facility] 01/21/2024 13:04:40 Date Recorded Body height Body mass index (BMI) Body weight Provider Name and Address Organization Details Last Updated DateTime 02/15/2024 162.56 cm 21.5 kg/m2 46512.05 g Mariana Felipe [place] [facility] 02/15/2024 15:24:15 Date Recorded Body height Body mass index (BMI) Body weight Provider Name and Address Organization Details Last Updated DateTime 03/31/2024 162.56 cm 21.5 kg/m2 26882.05 g Aisha Shah [place] [facility] 03/31/2024 15:25:25 Date Recorded Body height Body mass index (BMI) Body weight Provider Name and Address Organization Details Last Updated DateTime 04/28/2024 160.02 cm 22.1 kg/m2 56767.05 g Melody Gunderson [place] [facility] 04/28/2024 10:46:32 Social History None recorded. Functional Status Question Answer Note LastModified by Organizat ion Details LastModified Time What is your level of alcohol consumption? Occasional [id number] Information not available 01/21/2024 Mental Status None recorded. Family History Nothing Reported. Medical History Condition Response Asthma Y Gynecological HistoryNo gynecological history recorded. Obstetrics History GPAL:G 0 P 0 0 0 0 Immunizations Vaccine Type Date Status Note Provider Nam e and Address Organization Details Recorded Time influenza nasal, unspecified formulation completed Aisha schulz [place] - [facility] 01/21/2024 13:05:10 Past Encounters Encounter ID Performer Location Encounter Start Date Encounter Closed Date Diagnosis/Indication Diagnosis SNOMED-CT Code Diagnosis ICD10 Code Diagnosis Note [id number] ANNAMARIA GIL PA-C [facility] on [address] [place] [id number] 01/21/2024 12:48:06 01/21/2024 13:51:29 Bleeding from nose [id number] R04.0 [id number] ANNAMARIA GIL PA-C [facility] on [address] [place] [id number] 02/15/2024 15:22:35 02/15/2024 15:47:09 Anterior epistaxis [id number] R04.0 [id number] ANNA ZAMUDIO PA-C [facility] on [address] [place] [id number] 2 03/31/2024 15:17:46 03/31/2024 15:46:39 Bleeding from nose [id number] R04.0 [id number] ANNA ZAMUDIO PA-C [facility] on [address] [place] [id number] 04/28/2024 10:40:54 04/28/2024 10:53:54 Bleeding from nose [id number] R04.0 [id number] ANNA ZAMUDIO PA-C [facility] on [address] [place] [id number] 06/27/2024 12:47:05 06/27/2024 13:14:41 Anterior epistaxis [id number] R04.0 Health Concerns Section Related Observation LastModified by Organization Detai ls LastModified Time None Recorded Concern Status LastModified by Organization Details LastModified Time None Recorded Advance Directives Directive None Recorded Payers Insurance Date Sequence Insurance Name Policy Number Policy Schuster Covered Member ID Schuster Member ID Guarantor Name 06/25/2024 1 [employer] [place] - MEDICARE ADVANTAGE PLAN (MEDICARE REPLACEMENT HMO) [id number] Callie Hernandez Magy [id number] Callie Bhatti Notes Date Note Type Note Provider Name and Address Organization Details Recorded Time 01/21/2024 text/html 73 year old giovana luna presents today for evaluation of epistaxis.She reports a long history of epistaxis. They have been more frequent since she relocated to [place] from [place]. The bleeding is bilateral. It usually lasts about 20-30 minutes. Sometimes they are big clots associated with the bleeding. Her last nosebleed was this morning from the right nostril.She has a previous history of electrocautery while living in [place]. She has also seen in the past who did silver nitrate cautery x 3.She is currently using a nasal rinse with xlylitol and Berlin gel. She has found this somewhat helpful. She will also use the rinse when the nose is bleeding as this seems to help. History of septoplasty and turbinate reduction many years ago in [place]. Annamaria schulz [place] - [facility] 01/21/2024 13:57:51 02/15/2024 text/html 73 year old giovana luna with epistaxis.One month ago she was seen and had right sided cautery performed. She has had very limited bleeding from the right nostril. She has had some bleeding on the left and would like the left side cauterized today. Annamaria schulz [place] - [facility] 02/15/2024 15:53:47 03/31/2024 text/html 73 year old [...] does nasal rinse with Xylitol and uses Berlin gel. NETTE LOOMIS MD [address] [facility] [address], [place], [address], [facility] - [facility] 04/01/2024 09:09:25 04/28/2024 text/html 73 year old giovana luna presents for follow up of epistaxis. She has done well since the cautery. She has not had a nosebleed in weeks. She is using nasal saline and gel. NETTE LOOMIS MD [address] [facility] [place],[address], [place], [address], [facility] 04/28/2024 12:43:09 06/27/2024 text/html 73 year old [...] to the cautery. AIDA RAO MD [address], [place], [address], [facility] - [facility] 06/28/2024 07:48:27 OBGyn Episode No OBEpisode recorded.
[2024-09-05 14:37] VITALS: BP 110/70; PULSE 85; RESP 10; TEMP 37.6; O2SAT 96; BMI 22.8
== END 2024-09-05 14:56 | disposition home or self-care (01) ==
LOC: HO.HMCFM 14:22
PROVIDERS: PCP Family Medicine; Visit Provider Family Medicine
DX: R73.03 Prediabetes (principal); E78.00 Pure hypercholesterolemia, unspecified; R74.8 Abnormal levels of other serum enzymes; J45.40 Moderate persistent asthma, uncomplicated; J30.2 Other seasonal allergic rhinitis

== ENCOUNTER → 2024-09-05 14:21 | Outpatient (BNVA) | payer MEDICARE, SELFPAY | PROVIDERS: PCP Family Medicine; Visit Provider Family Medicine | DX: R73.03 Prediabetes (principal); E78.5 Hyperlipidemia, unspecified; E78.00 Pure hypercholesterolemia, unspecified; R74.8 Abnormal levels of other serum enzymes; J45.40 Moderate persistent asthma, uncomplicated; J30.2 Other seasonal allergic rhinitis; I10 Essential (primary) hypertension | CPT/HCPCS: 99212 ==

== ENCOUNTER 2025-01-22 11:28 | Emergency (ER) | payer MEDICARE, SELFPAY ==
--- OUTSIDE RECORDS SUMMARY | 2022-02-27 09:26 | XMS_ITS | Encounter Summary ---
Author Organization [facility] Address [address] [place] [id number] Phone Care Team Providers Care Retail Sales Lead Name Role Phone RaulitoJessica Jose CUELLAR Unavailable [phone] Hernandez aZrate MD Unavailable [phone] Calvin Rasmussen MD Primary Care Provider Encounter Details Date Type Department Care Team (Late st Contact Info) Description 02/27/2022 9:26 AM EDT Hospital Encounter [facility] [address] [place] [id number] Sheree Garcia FNP [address] [place] [id number] [email or web address] Social History Tobacco Use Types Packs/Day Years Used Date Smoking Tobacco: Never Passive Smoke Exposure: Never Smokeless Tobacco: Never Alcohol Use Standard Drinks/Week Comments Not Currently 7 (1 standard drink = 0.6 oz pur e alcohol) daily Education Answer Date Recorded Are you interested in more education? Not on gayatri e 08/22/2022 Are you concerned about learning? Not on file 08/22/2022 No 08/22/2022 No 08/22/2022 Digital Access Answer Date Recorded No 09/20/2022 No 09/20/2022 Reliable internet access at home? Not on file 09/20/2022 Device with a working camera? Not on file Comments No Sex and Gender Information Value Date Recorded Sex Assigned at Female 06/14/2021 12:24 PM EST Legal Sex Female 10:02 PM EDT Gender Identity Female 06/14/2021 12:24 PM EST Sexual Orientation Straight 06/14/2021 12 :24 PM EST documented as of this encounter Functional Status * Calculated C-SSRS Risk Score (Lifetime/Recent) Answer Date of Assessment Author No Risk Indicated 03/08/2022 12:20 PM Amanda Montana RN * Camilla Suicide Severity Rating Scale (Screener/Recent Self-Report) Question Answer Date of Assessment Author 1. Wish to be (Past 1 Month) No 022 12:20 PM Amanda Montana RN 2. Non-Specific Active Suici shay Thoughts (Past 1 Month) No 03/08/2022 12:20 PM Francesca Montana RN 6. Suicidal Behavior (Lifetime) No 12:20 PM Amanda Montana RN documented as of this encounter Plan of Treatment Upcoming Encounters Date Type Department Care Team (Late st Contact Info) Description 01/24/2025 10:30 AM EDT Office Visit [facility] [address] [place] [address] [address] Floor, [address] [place] [address] Zay Beckett MD [address] [place] [address], [address] [phone] [email or web address] documented as of this encounter Procedures Procedure Name Priority Date/Time Associated Diagnosis Comments XR LUMBOSACRAL SPINE 4 OR MORE VIEWS Urgent/patient waiting 02/27/2022 9:36 AM EDT Strain of lumbar region, initial encounter documented in this encounter Results * XR LUMBOSACRAL SPINE 4 OR MORE VIEWS (02/27/2022 9:36 AM EDT) Anatomical Region Laterality Modality L-spine Computed Radiogr aphy 02/27/2022 10:0 1 AM EDT Impressions 02/27/2022 10:05 AM EDT 1. L1 superior endplate compression deformity with less than 25% height loss, age indeterminate. 2. Multilevel degenerative changes as described above. Narrative 02/27/2022 10:05 AM EDT XR LUMBOSACRAL SPINE 4 OR MORE VIEWS COMPARISON: None. FINDINGS: Mild scoliosis of right convexity. L1 superior endplate compression deformity with less than 25% height loss, age indeterminate. Remaining vertebral body heights are maintained. There is minimal anterolisthesis at L4-L5 and at L3-L4. Disc space narrowing at multiple levels, greater at L4-L5 and L5-S1. Moderate facet degenerative changes at those levels. SI joints are maintained. Cholecystectomy clips. Procedure Note Rianna Ng MD - 02/27/2022 XR LUMBOSACRAL SPINE 4 OR MORE VIEWS COMPARISON: None. FINDINGS: Mild scoliosis of right convexity. L1 superior endplate compressiondeformity with less than 25% height loss, age indeterminate. Remainingvertebral body heights are maintained. There is minimal anterolisthesis atL4-L5 and at L3-L4. Disc space narrowing at multiple levels, greater atL4-L5 and L5-S1. Moderate facet degenerative changes at those levels. SI joints are maintained. Cholecystectomy clips. IMPRESSION: 1. L1 superior endplate compression deformity with less than 25% heightloss, age indeterminate. 2. Multilevel degenerative changes as described above. Sheree Garcia SALESPERSON [employer]PLIANCES IMG XR SPINE Final Resul t documented in this encounter Visit Diagnoses Not on filedocumented in this encounter Care Teams Retail Sales Lead Relationship Specialty Start Date End Date Calvin Rasmussen MD [address] [place] [id number] PCP - General 01/27/20 Jessica Cabezas CNM [address] [place] [address] Historical LMR Provider 02/12/17 Hernandez Zarate MD [address] [address] [email or web address] Historical LMR Provider 02/12/17 documented as of this encounter Additional Source Comments The information contained in this document represents components of the legal health record. It is not the complete legal health record.[facility]
--- OUTSIDE RECORDS SUMMARY | 2023-12-09 11:25 | XMS_ITS | Encounter Summary ---
Author Organization [facility] Address [address] [place] [address] [place] [address] Phone Care Team Providers Care Cognos Bi Administrator Name Role Phone CabezasJessica Jose CUELLAR Unavailable [phone] Hernandez Zarate MD Unavailable [phone] Calvin Rasmussen MD Primary Care Provider Encounter Details Date Type Department Care Team (Late st Contact Info) Description 12/09/2023 11:25 AM EDT Hospital Encounter [facility] [address] [place] [id number] Patti Bagley CNP [address] [place] [id number] [email or web address] Social History Tobacco Use Types Packs/Day Years [...] PM EST documented as of this encounter Plan of Treatment Upcoming Encounters Date Type Department Care Team (Late st Contact Info) Description 01/24/2025 10:30 AM EDT Office Visit [facility] [address] [place] [address] [address] Floor, [address] [place] [address] Zay Beckett MD [address] [facility], [address] [place] [address] [email or web address] documented as of this encounter Procedures Procedure Name Priority Date/Time Associated Diagnosis Comments XR FOOT 3 OR MORE VIEWS (LEFT) Urgent/patient waiting 12/09/2023 11:40 AM EDT Toe pain, left documented in this encounter Results * XR FOOT 3 OR MORE VIEWS (LEFT) (12/09/2023 11:40 AM EDT) Anatomical Region Laterality Modality Foot Left Computed Radiogr aphy 12/09/2023 12:2 7 PM EDT Impressions 12/09/2023 12:28 PM EDT No fracture or dislocation. Narrative 12/09/2023 12:28 PM EDT XR FOOT 3 OR MORE VIEWS (LEFT) Referring clinician's provided indication for this examination in Epic: Pain; no trauma, attn 2nd toe COMPARISON: None. FINDINGS: No fracture. Normal alignment. Normal joint spaces. No soft tissue swelling. Procedure Note Jolene Alvarado MD - 12/09/2023 XR FOOT 3 OR MORE VIEWS (LEFT) Referring clinician's provided indication for this examination in Epic:Pain; no trauma, attn 2nd toe COMPARISON: None. FINDINGS: No fracture. Normal alignment. Normal joint spaces. No soft tissueswelling. IMPRESSION: No fracture or dislocation. us Patti Bagley MOLD BURNER IMG XR LOWER EXTREMITY Lyn l Result documented in this encounter Visit Diagnoses Not on filedocumented in this encounter Care Teams Cognos Bi Administrator Relationship Specialty Start Date End Date Calvin Rasmussen MD [address] [place] [address] PCP - General 01/27/20 Jessica Cabezas CNM [address] [place] [address] Historical LMR Provider 02/12/17 Hernandez Zarate MD [address] [address] [email or web address] Historical LMR Provider 02/12/17 documented as of this encounter Additional Source Comments The information contained in this document represents components of the legal health record. It is not the complete legal health record.[facility]
--- NOTE | 2025-01-22 | ECG_ITS ---
Test Reason : chest pressure Blood Pressure : */* mmHG Vent. Rate : 95 BPM Atrial Rate : 95 BPM P-R Int : 144 ms QRS Dur : 90 ms QT Int : 372 ms P-R-T Axes : 38 -8 39 degrees QTcB Int : 467 ms Sinus rhythm with Premature atrial complexes with Aberrant conduction Inferior infarct , age undetermined Cannot rule out Anterior infarct , age undetermined Abnormal ECG No previous ECGs available Referred By: Generic ED Physician Electronically Signed By: Reji Laboy
--- NOTE | ~2025-01-22 | XR_ITS ---
CLINICAL HISTORY: chest pain 1 view chest x-ray Comparison: None provided Findings: The lungs are clear. Heart size is normal. No acute fracture. IMPRESSION: 1. No acute findings. This document has been electronically signed by: Selene Ackerman MD on 01/22/2025 15:09:10
[2025-01-22 11:39] VITALS: BP 163/95; BP 170/102; PULSE 88; PULSE 90; RESP 15; TEMP 36.6; O2SAT 95; O2SAT 99; BMI 23.8
[2025-01-22 11:49] VITALS: BP 167/82; PULSE 90; RESP 16; O2SAT 97
--- NOTE | 2025-01-22 11:49 | ED.CHESTPAIN ---
HPI - Chest Pain General Chief Complaint: Chest Pain Stated Complaint: CHEST PAIN Time Seen by Provider: 01/22/25 11:49 Source: patient and EMS Mode of arrival: EMS Limitations: no limitations History of Present Illness ED Provider: HPI narrative: 74-year-old woman with a history of asthma, report chest discomfort after taking Flovent and sinus relief spray, EMS reported multiple runs of bigeminy and she continued to have bigeminy on the monitor and ECG while in the ED, denies pleurisy, no recent surgeries, no fevers or chills. She does have history of asthma nonsmoker. Not on blood thinners. Related Data Previous Rx's ?Medication ?Instructions ?Recorded albuterol sulfate 90 mcg/actuation 2 puff inhalation Q6H 90 days 01/06/24 aerosol inhaler #25.5 grams fluticasone propionate 110 2 puff inhalation BID 90 days #36 01/06/24 mcg/actuation HFA aerosol inhaler grams prednisone 20 mg tablet 20 mg PO DAILY 90 days #30 tabs 01/06/24 Allergies Allergy/AdvReac Type Severity Reaction Status Date / Time No Known Allergies (No Known Allergy Verified 01/22/25 11:39 Allergies*) Cats Allergy Mild aggrevates Uncoded 01/22/25 11:39 asthma Dust Allergy Mild cogestion Uncoded 01/22/25 11:39 Mold Allergy Mild allergy Uncoded 01/22/25 11:39 Trees Allergy Mild asthma Uncoded 01/22/25 11:39 aggravated Review of Systems Constitutional: Constitutional: Reports as per HPI [facility] Past Medical History Medical History (Updated 01/22/25 @ 13:52 by Jose Altamirano DO) Seasonal allergies Chronic GERD Hypertension Surgical History (Updated 02/10/23 @ 15:12 by Magali De La Rosa) S/P removal of right ovary History of removal of ovarian cyst History of appendectomy History of nasal surgery History of tonsillectomy History of bilateral tubal ligation History of cholecystectomy Family History Family History (System 02/10/23 @ 15:12 by Magali De La Rosa) Father CHF (congestive heart failure) Mother Kidney failure Brother COPD (chronic obstructive pulmonary disease) Social History Social History (System 02/10/23 @ 15:12 by Magali De La Rosa) Housing: House Alcohol intake: current Alcohol intake frequency: holidays/special occasions only Patient Tobacco Use Status: Never used Tobacco e-Cigarette/Vaping Use: Never Used Second Hand Smoke Exposure: No Advance Directives: Yes Advance Directives Information Provided: No Advance Directives on File: No Do you have a plan to hurt others: No Plan service: No Current occupational status: retired Current occupational exposures/hazards: No Cognitive needs: No Hearing needs: No Vision needs: No Physical Exam Vital Signs: Vital Signs: Last Vital Signs Temp 97.8 F 01/22/25 11:39 Pulse 93 01/22/25 12:33 Resp 16 01/22/25 11:49 BP 159/83 H 01/22/25 12:33 Pulse Ox 97 01/22/25 11:49 O2 Del Method Room Air 01/22/25 11:49 BMI result Body Mass Index 23.8 Medical Decision Making Medical Decision Making [facility] Narrative: 12:15 PM 01/22/2025 (Dr. Jose Altamirano): At the time of my evaluation patient has been persistently tachycardic with PVCs, consideration include PE we will obtain D-dimer, I did not elicit risk factors for PE however, chest x-ray to evaluate for pneumonia, pneumothorax, ECG with frequent PVCs but no other abnormalities, electrolyte derangements is another consideration with PVCs such as hyperkalemia. Disposition to be determined Differential Diagnosis Differential Diagnoses: The differential diagnosis associated with the presentation includes (CHF, COPD exacerbation, pneumonia, pneumothorax, ACS, PE,) Admission/Observation Consideration of admission/observation: Escalation of care including admission/observation considered Lab Data [facility] Lab Attestation statement: I reviewed the patient's lab results. 01/22/25 11:55 01/22/25 11:55 Labs: Lab Results 01/22/25 01/22/25 Range/Units 11:55 12:36 WBC 7.0 (4.8-10.8) X10*3/uL RBC 4.49 (4.20-5.50) X10*6/uL Hgb 14.5 (12.0-16.0) g/dl Hct 42.9 (37.0-47.0) % MCV 95.5 (80.0-98.0) fL MCH 32.3 (27.0-33.0) pg MCHC 33.8 (31.0-35.0) g/dl RDW 12.7 (11.0-16.0) % Plt Count 309 (160-400) X10*3/uL MPV 8.9 L (9.4-12.3) fL Immature Gran % (Auto) 0.3 (0.0-0.4) % Neut % (Auto) 63.3 (45-73) % Lymph % (Auto) 21.7 (20-40) % [place] % (Auto) 8.3 (2-11) % Eos % (Auto) 5.7 H (0-4) % Baso % (Auto) 0.7 (0-2) % Lymph # (Auto) 1.5 (1.2-4.9) X10*3/uL [place] # (Auto) 0.6 (0.1-1.2) X10*3/uL Eos # (Auto) 0.4 (0.0-0.4) X10*3/uL Baso # (Auto) 0.1 (0.0-0.2) X10*3/uL Abs Immat Gran (auto) 0.02 (0.00-0.03) X10*3/uL Absolute Neuts (auto) 4.4 (2.0-8.3) x10*3/uL Absolute Nucleated RBC 0.000 (0.0-0.012) X10*3/uL Nucleated RBC % (auto) 0.0 (0.0-0.2) /100WBC D-Dimer High Sensitivty < 150 NG/ML Sodium 138 (135-145) mmol/L Potassium 4.4 (3.3-5.1) mmol/L Chloride 106 (96-108) mmol/L Carbon Dioxide 22 (22-29) mmol/L Anion Gap 14 (12-20) BUN 12 (9-16) mg/dL Creatinine 0.66 (0.5-1.4) mg/dL Estim Creat Clear Calc 60.9 Estimated GFR > 60 Random Glucose 114 (60-115) mg/dL Calcium 9.1 (8.4-10.2) mg/dL Magnesium 2.1 (1.6-2.6) mg/dL Total Bilirubin 0.7 (0.0-1.0) mg/dL AST 37 H (5-31) U/L ALT 29 (0-31) U/L Alkaline Phosphatase 63 (39-117) U/L Troponin I High Sens < 2.7 (<3.5-17.0) ng/L Total Protein 7.0 (6.5-8.0) g/dL Albumin 4.4 (3.5-5.0) g/dL Independent Interpretation I performed an independent interpretation of an: EKG (95 beats per minute frequent PVCs, no QTC prolongation, no ST-T changes) and Plain X-Ray (My independent chest xray interpretation: Lungs: Lungs are clear bilaterally without evidence of focal consolidation, pleural effusion, or pneumothorax. Cardiac silhouette is unremarkable, no obvious mediastinal widening, no obvious bony abnormalities such as fractures. Impression: Normal chest X-r) Radiology Impression Discussion of test interpretation with radiology: I have reviewed the radiologist's reading. Independent Historian Clinical information obtained from an independent historian. History obtained from or confirmed by: EMS Discharge Plan Discharge Clinical Impression: Chest pain, precordial Additional Instructions: You had a fairly involved workup, EKG, chest x-ray, cardiac enzymes and also obtain blood work to make sure you do not have any blood clots in the lungs all of which has been reassuring, your EKG shows frequent PVCs as I discussed with do these are benign but they can make somebody's heart rate feel abnormal, this can be brought up to a PCP and you can be referred to visual display associate but this is nothing I would worry about, continue your regimen at home, just know that if you are using Ventolin it can increase your heart rate and can increase PVCs as well Prescriptions: No Action albuterol sulfate 90 mcg/actuation HFA aerosol inhaler 2 puff inhalation Q6H 90 Days Qty: 25.5 3RF fluticasone propionate 110 mcg/actuation HFA aerosol inhaler 2 puff inhalation BID 90 Days Qty: 36 3RF prednisone 20 mg tablet 20 mg PO DAILY 90 Days Qty: 30 3RF Print Language: Martiniquais
[2025-01-22 12:00] LABS: MANUAL DIFF FLAG NO
[2025-01-22 12:01] LABS: Hematocrit 42.9 % (37.0-47.0); Hemoglobin 14.5 g/dl (12.0-16.0); Imm Gran Abs Auto 0.02 X10*3/uL (0.00-0.03); Imm Gran Pct Auto 0.3 % (0.0-0.4); Lymphocytes Absolute Auto 1.5 X10*3/uL (1.2-4.9); Mean Corpuscular HGB Conc 33.8 g/dl (31.0-35.0); Mean Corpuscular Hemoglobin 32.3 pg (27.0-33.0); Mean Corpuscular Volume 95.5 fL (80.0-98.0); NRBC Abs Auto 0.000 X10*3/uL (0.0-0.012); NRBC Pct Auto 0.0 /100WBC (0.0-0.2); Platelet Count 309 X10*3/uL (160-400); Red Blood Count 4.49 X10*6/uL (4.20-5.50); White Blood Count 7.0 X10*3/uL (4.8-10.8)
[2025-01-22 12:23] LABS: Alanine Aminotransferase 29 U/L (0-31); Albumin Level 4.4 g/dL (3.5-5.0); Alkaline Phosphatase 63 U/L (39-117); Anion Gap 14 (12-20); Aspartate Amino Transferase 37 U/L (5-31); Blood Urea Nitrogen 12 mg/dL (9-16); Calcium 9.1 mg/dL (8.4-10.2); Carbon Dioxide 22 mmol/L (22-29); Chloride 106 mmol/L (96-108); Creatinine Clr Calc Pharmacy 60.9; Estimated Glomerular Filt Rate > 60; Magnesium 2.1 mg/dL (1.6-2.6); Potassium 4.4 mmol/L (3.3-5.1); Sodium 138 mmol/L (135-145); Total Protein 7.0 g/dL (6.5-8.0)
[2025-01-22 12:29] LABS: Troponin-I High Sensitivity < 2.7 ng/L (<3.5-17.0)
[2025-01-22 12:33] VITALS: BP 159/83; PULSE 93
--- OUTSIDE RECORDS SUMMARY | 2025-01-22 12:33 | XMS_ITS | Encounter Summary ---
Author Organization [facility] Address [address] [address] Phone Care Team Providers Care Crystal Finisher Name Role Phone Jessica Cabezas Jose CUELLAR Unavailable [phone] Bonny Mcclendon NP Unavailable [phone] Hernandez Zarate MD Unavailable [phone] Neha Courtney MD Primary Care Provider [phone] Monica Albrecht MD, MPH Primary Care Provid er Unknown, Unknown Primary Care Provider Calvin Sommers MD Primary Care Provider Shefali IyerC Primary Care Provider + Calvin Rasmussen MD Primary Care Provider Encounter Details Date Type Department Care Team (Late st Contact Info) Description 01/05/2018 Ancillary Orders Virtual Department [address] [place] [address] Monica Albrecht MD, MPH [address] [place] [id number] [email or web address] Breast screening Social History Tobacco Use Types Packs/Day Years Used Date Smoking Tobacco: Never Assessed Comments No Sex and Gender Information Value [...] Description 01/24/2025 10:30 AM EDT Office Visit [facility] [address] [place] [address] [address], [address] [place] [address] Zay Beckett MD [address] [facility], [address] [place] [address] [email or web address] documented as of this encounter Results * BI MAMMOGRAM SCREENING WITH TOMOSYNTHESIS WITH CAD (BILATERAL) (03/31/2018 3:57 PM EST) Anatomical Region Laterality Modality Breast Left, Breast Right, Breast Bilateral Bila teral Mammography 03/31/2018 4:45 PM EST Impressions 03/31/2018 4:49 PM EST No mammographic evidence of malignancy. Recommend routine annual surveillance. BI-RADS CATEGORY: 2 - Benign finding. DENSITY: The breast tissue is heterogeneously dense, an appearance which lowers the sensitivity of mammography. POS - CDHMAMA Narrative 03/31/2018 4:49 PM EST 67-year-old female with no current breast symptoms. Comparison made to previous on 03/30/2017 and as far back as 11/18/2011. Interpretation made in conjunction with computer-aided detection and tomosynthesis. The breasts are heterogeneously dense, which may obscure small masses. Stable bilateral nodularity, left breast asymmetry on the cc view and bilateral scattered calcifications. There are no suspicious masses, areas of architectural distortion, or suspicious clusters of microcalcifications. Procedure Note Mena Becerra MD - 04/01/2018 67-year-old female with no current breast symptoms. Comparison made toprevious on 03/30/2017 and as far back as 11/18/2011. Interpretation madein conjunction with computer-aided detection and tomosynthesis. The breasts are heterogeneously dense, which may obscure small masses.Stable bilateral nodularity, left breast asymmetry on the cc view andbilateral scattered calcifications. There are no suspicious masses, areas of architectural distortion, orsuspicious clusters of microcalcifications. IMPRESSION: No mammographic evidence of malignancy. Recommend routine annualsurveillance. BI-RADS CATEGORY: 2 - Benign finding. DENSITY: The breast tissue is heterogeneously dense, an appearance whichlowers the sensitivity of mammography. POS - CDHMAMA us Monica Albrecht MD, MPH IMG MG EXAMS Lyn l Result documented in this encounter Visit Diagnoses Diagnosis Breast screening Breast screening, unspecified Breast screening Breast screening, unspecified documented in this encounter Additional Health Concerns Infection Onset Date Last Indicated Resolved Time CoV-Risk 03/27/2021 03/28/2021 04/07/2021 1:22 AM EST documented as of this encounter Care Teams Crystal Finisher Relationship Specialty Start Date End Date Neha Courtney MD [address] [place] [id number] PCP - General Internal Medicine 03/30/17 03/30/18 Monica Albrecht MD, MPH [address] [place] [id number] [email or web address] PCP - General Family Medicine 03/31/18 10/20/18 Unknown, Unknown, [address] [place] [address] PCP - General 10/21/18 10/21/18 Calvin Rasmussen MD [address] [place] [address] PCP - General 10/22/18 01/02/19 Shefali Iyer PA-C [address] [place] [address] PCP - General Unknown Provider Specialty 01/03/19 01/26/20 Calvin Rasmussen MD [address] [place] [address] PCP - General 01/27/20 Jessica Cabezas CNM [address] [place] [address] Historical LMR Provider 02/12/17 Bonny Mcclendon NP [address] [place] [address] Historical LMR Provider 02/12/17 2 Hernandez Zarate MD [address] [place] [id number] [email or web address] Historical LMR Provider 02/12/17 documented as of this encounter Additional Source Comments The information contained in this document represents components of the legal health record. It is not the complete legal health record.[facility]
--- OUTSIDE RECORDS SUMMARY | 2025-01-22 12:33 | XMS_ITS | Encounter Summary ---
Author Organization [facility] Address [address] [place] [address] [place] [address] Phone Care Team Providers Care Electromedical Service Engineer Name Role Phone Jessica Cabezas Jose CUELLAR Unavailable [phone] Bonny Mcclendon NP Unavailable [phone] Hernandez Zarate MD Unavailable [phone] Neha Courtney MD Primary Care Provider [phone] Monica Albrecht MD, MPH Primary Care Provid er Unknown, Unknown Primary Care Provider Calvin Sommers MD Primary Care Provider Shefali IyerC Primary Care Provider + Calvin Rasmussen MD Primary Care Provider Encounter Details Date Type Department Care Team (Latest Contact Info) Description 04/07/2017 Transcribe Orders [facility] [address] [place] [address] Daisha Lawson MD [address] [place] [address], [address] [place] [address] Hypogammaglobulinemia (Primary Dx) Social History Tobacco Use Types Packs/Day Years [...] Description 01/24/2025 10:30 AM EDT Office Visit [facility] [address] [place] [address] 3rd Floor, [address] [place] [address] Zay Beckett MD 22 [facility], [address] [place] [address] [email or web address] [email or web address] Results Name Type Priority Associated Diagnoses Date /Time Influenza A antibody Lab Routine Hypogammaglobulinemia 04/07/2017 11:58 AM EST documented as of this encounter Results * H. Influenza type B IgG antibody, serum (04/07/2017 11:58 AM EST) H.INFLU B AB,IGG 0.18 >=0.15 mg/L [facility] Comment: (NOTE) ADDITIONAL INFORMATION The minimum level of protective antibody in the normal population is 0.15 mg/L. However, the optimum antibody level to confer snf immunity is >= 1.0 mg/L post vaccination. Blood 04/07/2017 11:5 8 AM EST 04/07/2017 12:20 PM EST us Daisha Lawson MD LAB BLOOD ORDERABLES Final Result [facility] [address] [place] [address] * Immunoglobulin M (04/07/2017 11:58 AM EST) IMMUNOGLOBULIN M 49 40 - 230 mg/dL [facility] Blood 04/07/2017 11:5 8 AM EST 04/07/2017 12:20 PM EST us Daisha Lawson MD LAB BLOOD ORDERABLES Final Result Performing Organization Address [facility]/ZIP Co de Phone Number [address] [address] * (ABNORMAL) Immunoglobulin G (04/07/2017 11:58 AM EST) IMMUNOGLOBULIN G 654(L) 700 - 1,600 mg/dL [facility] Blood 04/07/2017 11:5 8 AM EST 04/07/2017 12:20 PM EST us Daisha Lawson MD LAB BLOOD ORDERABLES Final Result Performing Organization Address [facility] Co de Phone Number [address] [address] * Immunoglobulin A (04/07/2017 11:58 AM EST) IgA 184 70 - 400 mg/dL [facility] Blood 04/07/2017 11:5 8 AM EST 04/07/2017 12:20 PM EST Daisha Lawson MD LAB BLOOD ORDERABLES Final Result Performing Organization Address [facility] Co de Phone Number [address] [address] * (ABNORMAL) IgG subclasses (04/07/2017 11:58 AM EST) IGG 1 329(L) 341 - 894 mg/dL [facility] DPT OF LAB MED AND PAT+ IGG 2 231 171 - 632 mg/dl [facility] DPT OF LAB MED AND PAT+ IGG 3 32.1 18.4 - 106.0 mg/dl [facility] DPT OF LAB MED AND PAT+ IGG 4 14.9 2.4 - 121.0 mg/dl [facility] DPT OF LAB MED AND PAT+ TOTAL IGG 652(L) 767 - 1,590 mg/dl [facility] DPT OF LAB MED AND PAT+ Blood 04/07/2017 11:5 8 AM EST 04/07/2017 12:20 PM EST us Daisha Lawson MD LAB BLOOD ORDERABLES Final Result [facility] DPT OF LAB MED AND PAT+ [address] [place] [address] * (ABNORMAL) CBC and differential (04/07/2017 11:58 AM EST) WBC 7.77 3.40 - 11.20 K/uL [facility] RBC 4.32 3.80 - 4.80 M/uL [facility] HGB 14.3 12.0 - 15.0 g/dL [facility] HCT 41.6 36.0 - 46.0 % [facility] PLT 363 130 - 400 K/uL [facility] MCV 96.3 79.0 - 98.0 fL [facility] MCH 33.1 27.0 - 34.8 pg [facility] MCHC 34.4 31.5 - 36.0 g/dL [facility] RDW 12.6 10.8 - 14.6 % [facility] MPV 9.0(L) 9.4 - 12.4 fl [facility] NRBC 0.00 /100 WBCs [facility] ABSOLUTE NRBC 0.00 K/uL [facility] DIFF METHOD Auto [facility] NEUTS 64.4 45.30 - 77.70 % [facility] LYMPHS 20.8 12.30 - 39.70 % [facility] MONOS 8.6 4.10 - 12.80 % [facility] EOS 5.1 0 - 7.2 % [facility] BASOS 0.8 0 - 2.80 % [facility] Granulocytes, immature (%) 0.3 0.0 - 0.9 % [facility] ABSOLUTE NEUTS 5.00 1.40 - 7.70 K/uL [facility] ABSOLUTE LYMPHS 1.62 0.60 - 3.20 K/uL [facility] ABSOLUTE MONOS 0.67(H) 0.11 - 0.59 K/uL [facility] ABSOLUTE EOS 0.40 0.01 - 0.50 K/uL [facility] ABSOLUTE BASOS 0.06 0.00 - 0.08 K/uL [facility] Granulocytes, immature 0.02 0.00 - 0.05 K/uL [facility] Blood 04/07/2017 11:5 8 AM EST 04/07/2017 12:20 PM EST us Daisha Lawson MD LAB BLOOD ORDERABLES Final Result Performing Organization Address City/State/[facility] Co de Phone Number [facility] [address] [place] [address] * Pneumococcus IgG antibody (23 serotypes) (04/07/2017 11:58 AM EST) S.PNEU IGG TYPE 1 4.2 >=2.3 mcg/mL [facility] DPT OF LAB MED AND PAT+ S.PNEU IGG TYPE 2 3.6 >=1.0 mcg/mL [facility] DPT OF LAB MED AND PAT+ S.PNEU IGG TYPE 3 6.0 >=1.8 mcg/mL [facility] DPT OF LAB MED AND PAT+ S.PNEU IGG TYPE 4 0.6 >=0.6 mcg/mL [facility] DPT OF LAB MED AND PAT+ S.PNEU IGG TYPE 5 153.8 >=10.7 mcg/mL [facility] DPT OF LAB MED AND PAT+ S.PNEU IGG TYPE 8 2.7 >=2.9 mcg/mL [facility] DPT OF LAB MED AND PAT+ S.PNEU IGG TYPE 9N 4.6 >=9.2 mcg/mL [facility] DPT OF LAB MED AND PAT+ S.PNEU IGG TYPE 12F 0.9 >=0.6 mcg/mL [facility] DPT OF LAB MED AND PAT+ S.PNEU IGG TYPE 14 2.3 >=7.0 mcg/mL [facility] DPT OF LAB MED AND PAT+ S.PNEU IGG TYPE 17F 18.4 >=7.8 mcg/mL [facility] DPT OF LAB MED AND PAT+ S.PNEU IGG TYPE 19F 6.0 >=15.0 mcg/mL [facility] DPT OF LAB MED AND PAT+ S.PNEU IGG TYPE 20 2.3 >=1.3 mcg/mL [facility] DPT OF LAB MED AND PAT+ S.PNEU IGG TYPE 22F 6.6 >=7.2 mcg/mL [facility]PT OF LAB MED AND PAT+ S.PNEU IGG TYPE 23F 15.7 >=8.0 mcg/mL [facility] MED AND PAT+ S.PNEU IGG TYPE 6B 16.0 >=4.7 mcg/mL [facility] LAB MED AND PAT+ S.PNEU IGG TYPE 10A 4.3 >=2.9 mcg/mL [facility] LAB MED AND PAT+ S.PNEU IGG TYPE 11A 15.6 >=2.4 mcg/mL [facility] MED AND PAT+ S.PNEU IGG TYPE 7F 6.4 >=3.2 mcg/mL [facility] DPT OF LAB MED AND PAT+ S.PNEU IGG TYPE 15B 1.3 >=3.3 mcg/mL [facility] DPT OF LAB MED AND PAT+ S.PNEU IGG TYPE 18C 0.8 >=3.3 mcg/mL [facility] DPT OF LAB MED AND PAT+ S.PNEU IGG TYPE 19A 3.4 >=17.1 mcg/mL [facility] DPT OF LAB MED AND PAT+ S.PNEU IGG TYPE 9V 3.3 >=2.6 mcg/mL [facility] DPT OF LAB MED AND PAT+ S.PNEU IGG TYPE 33F SEE NOTE >=1.7 mcg/mL [facility] DPT OF LAB MED AND PAT+ Comment: (NOTE) No result available due to non-linear dilution response for this serotype. See Interpretation. Unable to quantitate serotype 33F (70) due to nonlinear dilution response of patient sample. Overall interpretation of pneumococcal antibody serology panel can be based on the reported 22 serotypes. Either of the two following conditions would be consistent with a normal response to Streptococcus pneumoniae vaccination: Antibody concentrations greater than or equal to the reference value for at least 50% of serotypes in either a pre- or post-vaccination sample. Antibody concentrations increased by 2-fold or greater for at least 50% of serotypes when comparing the pre- to the post-vaccination results. Optimal cut-offs (reference values) were derived by measuring serotype-specific IgG antibody levels in an adult cohort of 100 healthy individuals (previously unvaccinated) before and after pneumococcal vaccination and identifying the antibody level for each serotype that included the largest number of individuals with a negative response (below cut-off) pre-vaccination and a positive response (above cut-off) post-vaccination. ADDITIONAL INFORMATION All 23 serotypes assessed by this assay are included in the Pneumovax 23 vaccine. IgG antibody concentrations following Pneumovax 23 administration are a reflection of an individual's humoral immune response to polysaccharide antigens. Serotypes 1, 3, 4, 5, 6A (6), 14, 19F (19), 23F (23), 6B (26), 7F (51), 18C (56), 19A (57) and 9V (68) are included in the Prevnar-13 conjugate vaccine. Antibody concentrations following Prevnar-13 administration are a reflection of an individual's response to protein-conjugated antigens. Serotypes 2, 8, 9N (9), 12F (12), 17F (17), 20, 22F (22), 10A (34), 11A (43), 15B (54) and 33F (70) are present only in the Pneumovax 23 vaccine and not in Prevnar-13. Responses to these 11 serotypes are a reflection of an individual's response to polysaccharide antigens. Serotype 6A is only present in Prevnar-13. This test was developed and its performance characteristics determined by [facility] in a manner consistent with CLIA requirements. This test has not been cleared or approved by the U.S. Food and Drug Administration. Blood 04/07/2017 11:5 8 AM EST 04/07/2017 12:20 PM EST us Daisha Lawson MD LAB BLOOD ORDERABLES Final Result [facility] DPT OF LAB MED AND PAT+ [address] [place] [address] documented in this encounter Visit Diagnoses Diagnosis Hypogammaglobulinemia- Primary Unspecified hypogammaglobulinemia documented in this encounter Additional Health Concerns Infection Onset Date Last Indicated Resolved Time CoV-Risk 03/27/2021 03/28/2021 04/07/2021 1:22 AM EST documented as of this encounter Care Teams Electromedical Service Engineer Relationship Specialty Start Date End Date Neha Courtney MD [address] [place] [address] PCP - General Internal Medicine 03/30/17 03/30/18 Monica Albrecht MD, MPH [address] [address] [email or web address] PCP - General Family Medicine 03/31/18 10/20/18 Unknown, Bhavna, [address] [address] PCP - General 10/21/18 10/21/18 Calvin Rasmussen MD [address] [place] [address] PCP - General 10/22/18 01/02/19 Shefali Iyer PA-C [address] [place] [address] PCP - General Unknown Provider Specialty 01/03/19 01/26/20 Calvin Rasmussen MD [address] [place] [address] PCP - General 01/27/20 Jessica Cabezas CNM [address] [place] [address] Historical LMR Provider 02/12/17 Bonny Mcclendon, [employer] [address] [place] [address] Historical LMR Provider 02/12/17 2 Hernandez Zarate MD [address] [place] [address] [email or web address] Historical LMR Provider 02/12/17 documented as of this encounter Additional Source Comments The information contained in this document represents components of the legal health record. It is not the complete legal health record.[facility]
--- OUTSIDE RECORDS SUMMARY | 2025-01-22 12:33 | XMS_ITS | Encounter Summary ---
Author Organization [facility] Address [address] [place] [address] [place] [address] Phone Care Team Providers Care Meter Reading Clerk Name Role Phone Elsy Cabezasara Jose CUELLAR Unavailable [phone] Hernandez Zarate MD Unavailable [phone] Calvin Rasmussen MD Primary Care Provider Encounter Details Date Type Department Care Team (Late st Contact Info) Description 01/29/2024 Procedure Pass [facility] [address] [place] [address] Social History Tobacco Use Types Packs/Day Years [...] Description 01/24/2025 10:30 AM EDT Office Visit [facility] 22 [facility] 3rd Floor, [address] [place] [address] Zay Beckett MD 22 [facility], [address] [place] [address] [email or web address] documented as of this encounter Visit Diagnoses Not on filedocumented in this encounter Care Teams Meter Reading Clerk Relationship Specialty Start Date End Date Calvin Rasmussen MD [address] [place] [address] PCP - General 01/27/20 Jessica Cabezas CNM [address] [place] [address] Historical LMR Provider 02/12/17 Hernandez Zarate MD [address] [address] [email or web address] Historical LMR Provider 02/12/17 documented as of this encounter Additional Source Comments The information contained in this document represents components of the legal health record. It is not the complete legal health record.[facility]
--- OUTSIDE RECORDS SUMMARY | 2025-01-22 12:33 | XMS_ITS | Encounter Summary ---
Author Organization [facility] Address [address] [place] [address] Phone Care Team Providers Care Pc Network Technician Name Role Phone Hernandez Zarate MD Primary Care Provider [phone] Jessica CabezasM Unavailable [phone] Bonny Mcclendon [employer] Unavailable [phone] Hernandez Zarate MD Unavailable [phone] Neha Courtney MD Primary Care Provider [phone] Monica Albrecht MD, MPH Primary Care Provid er Unknown, Unknown Primary Care Provider Calvin Sommers MD Primary Care Provider Shefali Iyer-C Primary Care Provider + Calvin Rasmussen MD Primary Care Provider Encounter Details Date Type Department Care Team (Late st Contact Info) Description 02/14/2017 Ancillary Orders [facility] Internal Medicine [address] [place] [address] Hernandez Zarate MD [address] [place] [address] [email or web address] Visit for screening mammogram Social History Tobacco Use Types Packs/Day Years Used Date Smoking Tobacco: Never Assessed Comments Unknown Sex and Gender Information Value Date Recorded Sex Assigned at Female 06/14/2021 12:24 PM EST Legal Sex Female 10:02 PM EDT Gender Identity Female 06/14/2021 12:24 PM EST Sexual Orientation Straight 06/14/2021 12 :24 PM EST documented as of this encounter Plan of Treatment Upcoming Encounters Date Type Department Care Team (Late st Contact Info) Description 01/24/2025 10:30 AM EDT Office Visit [facility] [address] [place] [address] 3rd Floor, [address] [place] [address] Zay Beckett MD 22 [facility], [address] [place] [address] [email or web address] documented as of this encounter Results * BI MAMMOGRAM SCREENING WITH TOMOSYNTHESIS WITH CAD (BILATERAL) (03/30/2017 9:37 AM EST) Anatomical Region Laterality Modality Breast Left, Breast Right, Breast Bilateral Bila teral Mammography 03/30/2017 12:3 3 PM EST Impressions 03/30/2017 12:41 PM EST Stable appearance relative to prior imaging. No findings suggestive of malignancy are seen. BI-RADS CATEGORY: 2 - Benign finding. DENSITY: The breast tissue is heterogeneously dense, an appearance which lowers the sensitivity of mammography. POS - CDHMAMA Narrative 03/30/2017 12:41 PM EST Full-field digital mammography is obtained with computer-aided detection. Comparison with prior imaging from 12/17/2015 is made with older imaging dating back as far as 11/13/2010 also reviewed. There is heterogeneous fibroglandular density evident in the breasts. In addition to 2-D C view imaging, tomosynthesis images are obtained in two projections of each breast. There are scattered coarsened calcifications in both breasts. These are unchanged.. No dominant soft tissue mass of concern, suspicious cluster of calcifications, significant interval skin changes, or architectural distortion is identified. Procedure Note Yoni Soliman MD - 03/30/2017 Full-field digital mammography is obtained with computer-aided detection.Comparison with prior imaging from 12/17/2015 is made with older imagingdating back as far as 11/13/2010 also reviewed. There is heterogeneous fibroglandular density evident in the breasts. Inaddition to 2-D C view imaging, tomosynthesis images are obtained in twoprojections of each breast. There are scattered coarsened calcifications in both breasts. These areunchanged.. No dominant soft tissue mass of concern, suspicious clusterof calcifications, significant interval skin changes, or architecturaldistortion is identified. IMPRESSION: Stable appearance relative to prior imaging. No findings suggestive ofmalignancy are seen. BI-RADS CATEGORY: 2 - Benign finding. DENSITY: The breast tissue is heterogeneously dense, an appearance whichlowers the sensitivity of mammography. POS - CDHMAMA Hernandez Zarate MD IMG MG EXAMS Final Resu lt documented in this encounter Visit Diagnoses Diagnosis Visit for screening mammogram Visit for screening mammogram documented in this encounter Additional Health Concerns Infection Onset Date Last Indicated Resolved Time CoV-Risk 03/27/2021 03/28/2021 04/07/2021 1:22 AM EST documented as of this encounter Care Teams Pc Network Technician Relationship Specialty Start Date End Date Hernandez Zarate MD [address] [place] [address] [address] [place] [address] [email or web address] PCP - General 02/12/17 03/29/17 Neha Courtney MD [address] [place] [address] PCP - General Internal Medicine 03/30/17 03/30/18 Monica Albrecht MD, MPH [address] [place] [address] [address] [place] [address] [email or web address] PCP - General Family Medicine 03/31/18 10/20/18 Unknown, Unknown, 15 [facility]. [address] [place] [address] PCP - General 10/21/18 10/21/18 Calvin Rasmussen MD [address] [place] [address] PCP - General 10/22/18 01/02/19 Shefali Iyer PA-C [address] [place] [address] PCP - General Unknown Provider Specialty 01/03/19 01/26/20 Calvin Rasmussen MD [address] [place] [address] PCP - General 01/27/20 Jessica Cabezas CNM [address] [place] [address] Historical LMR Provider 02/12/17 Bonny Mcclendon [employer] [address] [place] [address] Historical LMR Provider 02/12/17 2 Hernandez Zarate MD [address] [place] [address] [email or web address] Historical LMR Provider 02/12/17 documented as of this encounter Additional Source Comments The information contained in this document represents components of the legal health record. It is not the complete legal health record.[facility]
--- OUTSIDE RECORDS SUMMARY | 2025-01-22 12:33 | XMS_ITS | Encounter Summary ---
Author Organization [facility] Address [address] [place] [address] [place] [address] Phone Care Team Providers Care Maintenance Welder Name Role Phone CabezasJessica Jose CUELLAR Unavailable [phone] Bonny Mcclendon NP Unavailable [phone] Hernandez Zarate MD Unavailable [phone] Calvin Rasmussen MD Primary Care Provider Encounter Details Date Type Department Care Team (Late st Contact Info) Description 05/02/2021 Transcribe Orders [facility] [address] [place], [place] [id number] Daisha Lawson MD [address] [place] [address], [address] [place] [id number] Social History Tobacco Use Types Packs/Day Years Used Date Smoking Tobacco: Never Smokeless Tobacco: Never Alcohol Use Standard Drinks/Week Comments Yes 2 (1 standard drink = 0.6 oz pur e alcohol) daily Comments No Sex and Gender Information Value [...] Description 01/24/2025 10:30 AM EDT Office Visit [facility] 22 [facility] 3rd Floor, [address] [place] [address] Zay Beckett MD [address] [facility], [address] [place] [address] [email or web address] documented as of this encounter Visit Diagnoses Not on filedocumented in this encounter Care Teams Maintenance Welder Relationship Specialty Start Date End Date Calvin Rasmussen MD [address] [place] [address] PCP - General 01/27/20 Jessica Cabezas CNM [address] [place] [address] Historical LMR Provider 02/12/17 Bonny Mcclendon [employer] C[employer]IED BEH[employer]AL ANALYST [address] [place] [address] Historical LMR Provider 02/12/17 2 Hernandez Zarate MD [address] [place] [address] [email or web address] Historical LMR Provider 02/12/17 documented as of this encounter Additional Source Comments The information contained in this document represents components of the legal health record. It is not the complete legal health record.[facility]
--- OUTSIDE RECORDS SUMMARY | 2025-01-22 12:33 | XMS_ITS | Encounter Summary ---
Author Organization [facility] Address [address] [facility] [address] [place] [address] Phone Care Team Providers Care Industrial Staff Nurse Name Role Phone Raulito Jessica Jose CUELLAR Unavailable [phone] Bonny Mcclendon NP Unavailable [phone] Hernandez Zarate MD Unavailable [phone] Shefali Iyer PA-C Primary Care Provider + Calvin Rasmussen MD Primary Care Provider Encounter Details Date Type Department Care Team (Late st Contact Info) Description 01/09/2020 Ancillary Orders [facility] [address] [place] [address] Jacquelyn Luis MD 22 [facility], [address] [place] [address] [email or web address] Breast screening Social History Tobacco Use Types Packs/Day Years Used Date Smoking Tobacco: Never Smokeless Tobacco: Never Alcohol Use Standard Drinks/Week Comments Yes 0 (1 standard drink = 0.6 oz pur e alcohol) social Comments No Sex and Gender Information Value [...] Description 01/24/2025 10:30 AM EDT Office Visit [facility] [address] [place] [address] 3rd Floor, [address] [place] [address] Zay Beckett MD [address] [facility], [address] [place] [address] [email or web address] documented as of this encounter Results * BI MAMMOGRAM SCREENING WITH TOMOSYNTHESIS WITH CAD (BILATERAL) (04/05/2020 12:31 PM EST) Anatomical Region Laterality Modality Breast Left, Breast Right, Breast Bilateral Bila teral Mammography 04/05/2020 1:07 PM EST Impressions 04/05/2020 1:09 PM EST No mammographic evidence of malignancy. BI-RADS CATEGORY: 2 - Benign finding. DENSITY: The breast tissue is heterogeneously dense, which could obscure a lesion on mammography. Narrative 04/05/2020 1:09 PM EST Standard digital full-field 2-D C view and two-plane tomographic imaging was performed and compared with multiple prior studies, most recently 04/04/2019, with utilization of computer-aided detection. The breast parenchyma is heterogeneously dense, somewhat limiting mammographic sensitivity. The stromal markings are essentially unchanged in overall appearance and distribution. No dominant spiculated mass, suspicious clustered microcalcifications, or focal zone of pathologic skin thickening or retraction are noted to have arisen in the interim. Scattered punctate and coarse grossly benign-appearing microcalcifications are again demonstrated bilaterally. Procedure Note Hernandez Delacruz MD - 04/05/2020 Standard digital full-field 2-D C view and two-plane tomographic imagingwas performed and compared with multiple prior studies, most [id number]/9/2019, with utilization of computer-aided detection. The breast parenchyma is heterogeneously dense, somewhat limitingmammographic sensitivity. The stromal markings are essentially unchangedin overall appearance and distribution. No dominant spiculated mass,suspicious clustered microcalcifications, or focal zone of pathologic skinthickening or retraction are noted to have arisen in the interim.Scattered punctate and coarse grossly benign-appearing microcalcificationsare again demonstrated bilaterally. IMPRESSION: No mammographic evidence of malignancy. BI-RADS CATEGORY: 2 - Benign finding. DENSITY: The breast tissue is heterogeneously dense, which could obscurea lesion on mammography. Jacquelyn Luis MD IMG MG EXAMS Final Result documented in this encounter Visit Diagnoses Diagnosis Breast screening Breast screening, unspecified Breast screening Breast screening, unspecified documented in this encounter Additional Health Concerns Infection Onset Date Last Indicated Resolved Time CoV-Risk 03/27/2021 03/28/2021 04/07/2021 1:22 AM EST documented as of this encounter Care Teams Industrial Staff Nurse Relationship Specialty Start Date End Date Shefali Iyer PA-C [address] [place] [address] PCP - General Unknown Provider Specialty 01/03/19 01/26/20 Calvin Rasmussen MD [address] [place] [address] PCP - General 01/27/20 Jessica Cabezas CNM [address] [place] [address] Historical LMR Provider 02/12/17 Bonny Mcclendon NP [address] [place] [address] Historical LMR Provider 02/12/17 2 Hernandez Zarate MD [address] [place] [address] [email or web address] Historical LMR Provider 02/12/17 documented as of this encounter Additional Source Comments The information contained in this document represents components of the legal health record. It is not the complete legal health record.[facility]
--- OUTSIDE RECORDS SUMMARY | 2025-01-22 12:33 | XMS_ITS | Encounter Summary ---
Author Organization [facility] Address [address] [address] Phone Care Team Providers Care Cash Applications Representative Name Role Phone Jessica Cabezas Jose CUELLAR Unavailable [phone] Bonny Mcclendon NP Unavailable [phone] Hernandez Zarate MD Unavailable [phone] Neha Courtney MD Primary Care Provider [phone] Monica Albrecht MD, MPH Primary Care Provid er Unknown, Unknown Primary Care Provider Calvin Sommers MD Primary Care Provider Shefali IyerC Primary Care Provider + Calvin Rasmussen MD Primary Care Provider Encounter Details Date Type Department Care Team (Late st Contact Info) Description 03/09/2018 Transcribe Orders [facility] [address] [place] [address] Monica Albrecht MD, MPH [address] [facility] [address] [place] [address] [email or web address] Occupational exposure in workplace (Primary Dx) Social History Tobacco Use Types [...] Description 01/24/2025 10:30 AM EDT Office Visit [facility] [address] [place] [address] 3rd Floor, [address] [place] [address] Zay Beckett MD 22 [facility], [address] [place] [address] [email or web address] documented as of this encounter Results * HIV-1/2 antigen/antibody (03/09/2018 7:45 AM EST) HIV Antibod(ies) NON-REACTI VE NON-REACTI VE [facility] HIV-1 ANTIGEN NON-REACTI VE NON-REACTI VE [facility] Blood 03/09/2018 7:45 AM EST 03/09/2018 8:39 AM EST us Monica Albrecht MD, MPH LAB BLOOD ORDERABLES Final Result Performing Organization Address City[facility] Co de Phone Number [address] [address] * Hepatitis B surface antigen (03/09/2018 7:45 AM EST) HBV SURFACE ANTIGEN Negative Negative [facility] Blood 03/09/2018 7:45 AM EST 03/09/2018 8:39 AM EST us Monica Albrecht MD, MPH LAB BLOOD ORDERABLES Final Result Performing Organization Address City/[facility]/ZIP Co de Phone Number [address] [address] * Hepatitis B surface antibody (03/09/2018 7:45 AM EST) HBV SURFACE ANTIBODY Positive [facility] Comment: Unvaccinated: Negative Vaccinated: Positive Blood 03/09/2018 7:45 AM EST 03/09/2018 8:39 AM EST us Monica Albrecht MD, MPH LAB BLOOD ORDERABLES Final Result Performing Organization Address City/State/[facility] Co de Phone Number [facility] [address] [place] [address] documented in this encounter Visit Diagnoses Diagnosis Occupational exposure in workplace- Primary documented in this encounter Additional Health Concerns Infection Onset Date Last Indicated Resolved Time CoV-Risk 03/27/2021 03/28/2021 04/07/2021 1:22 AM EST documented as of this encounter Care Teams Cash Applications Representative Relationship Specialty Start Date End Date Neha Courtney MD [address] [place] [address] PCP - General Internal Medicine 03/30/17 03/30/18 Monica Albrecht MD, MPH [address] [address] [email or web address] PCP - General Family Medicine 03/31/18 10/20/18 Unknown, MD Bhavna [address] [address] PCP - General 10/21/18 10/21/18 Calvin Rasmussen MD [address] [place] [address] PCP - General 10/22/18 01/02/19 Shefali Iyer PA-C 140 [place] [address] PCP - General Unknown Provider Specialty 01/03/19 01/26/20 Calvin Rasmussen MD 271 [place] [address] PCP - General 01/27/20 Jessica Cabezas CNM [address] [place] [address] Historical LMR Provider 02/12/17 Bonny Mcclendon NP [address] [place] [address] Historical LMR Provider 02/12/17 2 Hernandez Zarate MD [address] [place] [address] [email or web address] Historical LMR Provider 02/12/17 documented as of this encounter Additional Source Comments The information contained in this document represents components of the legal health record. It is not the complete legal health record.[facility]
--- OUTSIDE RECORDS SUMMARY | 2025-01-22 12:33 | XMS_ITS | Encounter Summary ---
Author Organization [facility] Address [address] [place] [address] [place] [address] Phone Care Team Providers Care Management Developer Name Role Phone CabezasJessica Jose CUELLAR Unavailable [phone] Bonny Mcclendon NP Unavailable [phone] Hernandez Zarate MD Unavailable [phone] Neha Courtney MD Primary Care Provider [phone] Monica Albrecht MD, MPH Primary Care Provid er Unknown, Unknown Primary Care Provider Calvin Sommers MD Primary Care Provider Shefali IyerC Primary Care Provider + Calvin Rasmussen MD Primary Care Provider Encounter Details Date Type Department Care Team (Latest Contact Info) Description 03/09/2018 Transcribe Orders [facility] [address] [place] [address] Daisha Lawson MD [address] [place] [address], [address] [place] [address] Hypogammaglobulinemia (Primary Dx) Social History [...] Description 01/24/2025 10:30 AM EDT Office Visit [facility] [address] [place] [address] 3rd Floor, [address] [place] [address] Zay Beckett MD 22 [facility], [address] [place] [address] [email or web address] documented as of this encounter Results * H. Influenza type B IgG antibody, serum (03/09/2018 7:45 AM EST) H.INFLU B AB,IGG 0.21 >=0.15 mg/L [facility] Comment: (NOTE) ADDITIONAL INFORMATION The minimum level of protective antibody in the normal population is 0.15 mg/L. However, the optimum antibody level to confer usp immunity is >= 1.0 mg/L post vaccination. Blood 03/09/2018 7:45 AM EST 03/09/2018 8:39 AM EST us Daisha Lawson MD LAB BLOOD ORDERABLES Final Result [facility] [address] [place] [address] * (ABNORMAL) IgG subclasses (03/09/2018 7:45 AM EST) IGG 1 257(L) 341 - 894 mg/dL [facility] DPT OF LAB MED AND PAT+ IGG 2 190 171 - 632 mg/dl [facility] OF [facility] MED AND PAT+ IGG 3 23.8 18.4 - 106.0 mg/dl [facility] DPT OF LAB MED AND PAT+ IGG 4 7.7 2.4 - 121.0 mg/dl [facility] DPT OF LAB MED AND PAT+ TOTAL IGG 519(L) 767 - 1,590 mg/dl [facility]PT OF LAB MED AND PAT+ Blood 03/09/2018 7:45 AM EST 03/09/2018 8:39 AM EST us Daisha Lawson MD LAB BLOOD ORDERABLES Final Result [facility] DPT OF LAB MED AND PAT+ [address] [facility] [place] [address] * (ABNORMAL) Immunoglobulin M (03/09/2018 7:45 AM EST) IMMUNOGLOBULIN M 33(L) 40 - 230 mg/dL [facility] Blood 03/09/2018 7:45 AM EST 03/09/2018 8:39 AM EST us Daisha Lawson MD LAB BLOOD ORDERABLES Final Result Performing Organization Address [facility] Co de Phone Number [address] [address] * (ABNORMAL) Immunoglobulin G (03/09/2018 7:45 AM EST) IMMUNOGLOBULIN G 541(L) 700 - 1,600 mg/dL [facility] Blood 03/09/2018 7:45 AM EST 03/09/2018 8:39 AM EST us Daisha Lawson MD LAB BLOOD ORDERABLES Final Result Performing Organization Address [facility] Co de Phone Number [address] [address] * Immunoglobulin A (03/09/2018 7:45 AM EST) IgA 165 70 - 400 mg/dL [facility] Blood 03/09/2018 7:45 AM EST 03/09/2018 8:39 AM EST us Daisha Lawson MD LAB BLOOD ORDERABLES Final Result [facility] [address] [place] [address] * (ABNORMAL) Influenza A antibody (03/09/2018 7:45 AM EST) Influenza A Ab, IgG (Titer) 1:160(A) <1:10 [facility] Comment: (NOTE) The presence of IgM class antibodies or a fourfold or greater rise in paired sera IgG titer indicates recent infection or response to vaccination. The presence of demonstrable IgG generally indicates past exposure. INFLUENZA A AB, IGM <1:10 <1:10 [facility] Blood 03/09/2018 7:45 AM EST 03/09/2018 8:39 AM EST Daisha Lawson MD LAB BLOOD ORDERABLES Final Result Performing Organization Address City/[facility] Co de Phone Number [facility] [address] [place] [address] * Pneumococcus IgG antibody (23 serotypes) (03/09/2018 7:45 AM EST) S.PNEU IGG TYPE 1 3.7 >=2.3 mcg/mL [facility] DPT OF LAB MED AND PAT+ S.PNEU IGG TYPE 2 2.6 >=1.0 mcg/mL [facility] DPT OF LAB MED AND PAT+ S.PNEU IGG TYPE 3 2.9 >=1.8 mcg/mL [facility] DPT OF LAB MED AND PAT+ S.PNEU IGG TYPE 4 0.4 >=0.6 mcg/mL [facility]PT OF LAB MED AND PAT+ S.PNEU IGG TYPE 5 147.4 >=10.7 mcg/mL [facility] OF [facility] MED AND PAT+ S.PNEU IGG TYPE 8 1.6 >=2.9 mcg/mL [facility] OF [facility] MED AND PAT+ S.PNEU IGG TYPE 9N 3.9 >=9.2 mcg/mL [facility] OF LAB MED AND PAT+ S.PNEU IGG TYPE 12F 0.4 >=0.6 mcg/mL [facility] OF [facility] MED AND PAT+ S.PNEU IGG TYPE 14 2.2 >=7.0 mcg/mL [facility] MED AND PAT+ S.PNEU IGG TYPE 17F 15.2 >=7.8 mcg/mL [facility] DPT OF LAB MED AND PAT+ S.PNEU IGG TYPE 19F 4.7 >=15.0 mcg/mL [facility] DPT OF LAB MED AND PAT+ S.PNEU IGG TYPE 20 1.7 >=1.3 mcg/mL [facility] DPT OF LAB MED AND PAT+ S.PNEU IGG TYPE 22F 6.1 >=7.2 mcg/mL [facility] DPT OF LAB MED AND PAT+ S.PNEU IGG TYPE 23F 8.8 >=8.0 mcg/mL [facility] DPT OF LAB MED AND PAT+ S.PNEU IGG TYPE 6B 9.7 >=4.7 mcg/mL [facility] DPT OF LAB MED AND PAT+ S.PNEU IGG TYPE 10A 4.5 >=2.9 mcg/mL [facility] DPT OF LAB MED AND PAT+ S.PNEU IGG TYPE 11A 23.4 >=2.4 mcg/mL [facility] DPT OF LAB MED AND PAT+ S.PNEU IGG TYPE 7F 6.0 >=3.2 mcg/mL [facility] OF LAB MED AND PAT+ S.PNEU IGG TYPE 15B 0.9 >=3.3 mcg/mL [facility] DPT OF LAB MED AND PAT+ S.PNEU IGG TYPE 18C 0.7 >=3.3 mcg/mL [facility] DPT OF LAB MED AND PAT+ S.PNEU IGG TYPE 19A 2.5 >=17.1 mcg/mL [facility] DPT OF LAB MED AND PAT+ S.PNEU IGG TYPE 9V 1.8 >=2.6 mcg/mL [facility] DPT OF LAB MED AND PAT+ S.PNEU IGG TYPE 33F 1.0 >=1.7 mcg/mL [facility] DPT OF LAB MED AND PAT+ Comment: (NOTE) Either of the two following conditions would [...] developed and its performance characteristics determined by [facility] in a manner consistent with CLIA requirements. This test has not been cleared or approved by the U.S. Food and Drug Administration. Blood 03/09/2018 7:45 AM EST 03/09/2018 8:39 AM EST us Daisha Lawson MD LAB BLOOD ORDERABLES Final Result [facility]PT OF LAB MED AND PAT+ [address] [place] [address] documented in this encounter Visit Diagnoses Diagnosis Hypogammaglobulinemia- Primary Unspecified hypogammaglobulinemia documented in this encounter Additional Health Concerns Infection Onset Date Last Indicated Resolved Time CoV-Risk 03/27/2021 03/28/2021 04/07/2021 1:22 AM EST documented as of this encounter Care Teams Management Developer Relationship Specialty Start Date End Date Neha Courtney MD [address] [place] [address] PCP - General Internal Medicine 03/30/17 03/30/18 Monica Albrecht MD, MPH [address] [place] [address] [email or web address] PCP - General Family Medicine 03/31/18 10/20/18 Unknown, MD Bhavna [address] [place] [address] PCP - General 10/21/18 10/21/18 Calvin Rasmussen MD [address] [place] [address] PCP - General 10/22/18 01/02/19 Shefali Iyer PA-C 140 [place] [address] PCP - General Unknown Provider Specialty 01/03/19 01/26/20 Calvin Rasmussen MD 271 [place] [address] PCP - General 01/27/20 Jessica Cabezas CNM [address] [place] [address] Historical LMR Provider 02/12/17 Bnony Mcclendon, COMMERCIAL LOAN CLOSER [address] [place] [address] Historical LMR Provider 02/12/17 2 Hernandez Zarate MD [address] [address] [email or web address] Historical LMR Provider 02/12/17 documented as of this encounter Additional Source Comments The information contained in this document represents components of the legal health record. It is not the complete legal health record.[facility]
--- OUTSIDE RECORDS SUMMARY | 2025-01-22 12:33 | XMS_ITS | Encounter Summary ---
Author Organization [facility] Address [address] [facility] [address] [place] [address] Phone Care Team Providers Care Banking Analyst Name Role Phone Jessica Cabezas Jose CUELLAR Unavailable [phone] Bonny Mcclendon NP Unavailable [phone] Hernandez Zarate MD Unavailable [phone] Calvin Rasmussen MD Primary Care Provider Encounter Details Date Type Department Care Team (Late st Contact Info) Description 10/08/2020 Transcribe Orders [facility] [address] [place] [address] Calvin Rasmussen MD [address] [place] [address] [address] [place] [phone] Social History Tobacco Use Types Packs/Day Years [...] Description 01/24/2025 10:30 AM EDT Office Visit [facility] [address] [facility] 3rd Floor, [address] [place] [address] Zay Beckett MD 22 [facility], [address] [address] [email or web address] documented as of this encounter Visit Diagnoses Not on filedocumented in this encounter Additional Health Concerns Infection Onset Date Last Indicated Resolved Time CoV-Risk 03/27/2021 03/28/2021 04/07/2021 1:22 AM EST documented as of this encounter Care Teams Banking Analyst Relationship Specialty Start Date End Date Calvin Rasmussen MD [address] [place] [address] PCP - General 01/27/20 Jessica Cabezas CNM [address] [place] [address] Historical LMR Provider 02/12/17 Bonny Mcclendon REAL ESTATE ACQUISITION ANALYST [address] [place] [address] Historical LMR Provider 02/12/17 2 Hernandez Zarate MD [address] [place] [address] [email or web address] Historical LMR Provider 02/12/17 documented as of this encounter Additional Source Comments The information contained in this document represents components of the legal health record. It is not the complete legal health record.[facility]
--- OUTSIDE RECORDS SUMMARY | 2025-01-22 12:33 | XMS_ITS | Encounter Summary ---
Author Organization [facility] Address [address] [place] [address] Phone Care Team Providers Care Returned Goods Receiving Clerk Name Role Phone Jessica Cabezas Jose CUELLAR Unavailable [phone] Bonny Mcclendon NP Unavailable [phone] Hernandez Zarate MD Unavailable [phone] Shefali Iyer PA-C Primary Care Provider + Calvin Rasmussen MD Primary Care Provider Encounter Details Date Type Department Care Team (Late st Contact Info) Description 01/03/2019 Ancillary Orders Virtual Department [address] [place] [address] Shefali Iyer PA-C [address] [place] [address] Breast screening Social History Tobacco Use Types [...] Description 01/24/2025 10:30 AM EDT Office Visit [facility] [address] [place] [address] 3rd Floor, [address] [place] [address] Zay Beckett MD [address] [place] [address], [address] [place] [address] [email or web address] documented as of this encounter Results * BI MAMMOGRAM SCREENING WITH TOMOSYNTHESIS WITH CAD (BILATERAL) (04/04/2019 1:03 PM EST) Anatomical Region Laterality Modality Breast Left, Breast Right, Breast Bilateral Bila teral Mammography 04/05/2019 9:55 AM EST Impressions 04/05/2019 9:56 AM EST No mammographic evidence of malignancy. Annual mammographic screening is recommended. Patients at this facility are entered into a reminder system for their next appointment. Density: The breast tissue is heterogeneously dense, an appearance which lowers the sensitivity of mammography. BI-RADS CATEGORY: 2 - Benign finding. POS - [id number] Narrative 04/05/2019 9:56 AM EST CLINICAL HISTORY: * Annual TECHNIQUE: Tomosynthesis as well as 2D C-view imaging obtained. Computer-aided detection also utilized. CC and MLO views of both breasts obtained. COMPARISON: multiple prior studies through 2012 FINDINGS: There is no suspicious mass, calcification or architectural distortion. There are benign-appearing calcifications in each breast. There is no worrisome change from the patient's prior study. Procedure Note Marco A Min MD - 04/05/2019 CLINICAL HISTORY: * Annual TECHNIQUE: Tomosynthesis as well as 2D C-view imaging obtained.Computer-aided detection also utilized. CC and MLO views of both breastsobtained. COMPARISON: multiple prior studies through 2012 FINDINGS: There is no suspicious mass, calcification or architectural distortion.There are benign-appearing calcifications in each breast. There is no worrisome change from the patient's prior study. IMPRESSION: No mammographic evidence of malignancy. Annual mammographic screening isrecommended. Patients at this facility are entered into a reminder systemfor their next appointment. Density: The breast tissue is heterogeneously dense, an appearance whichlowers the sensitivity of mammography. BI-RADS CATEGORY: 2 - Benign finding. POS - [id number] Shefali Iyer PA-C IMG MG EXAMS Final Re sult documented in this encounter Visit Diagnoses Diagnosis Breast screening Breast screening, unspecified Breast screening Breast screening, unspecified documented in this encounter Additional Health Concerns Infection Onset Date Last Indicated Resolved Time CoV-Risk 03/27/2021 03/28/2021 04/07/2021 1:22 AM EST documented as of this encounter Care Teams Returned Goods Receiving Clerk Relationship Specialty Start Date End Date Shefali Iyer PA-C [address] [place] [address] PCP - General Unknown Provider Specialty 01/03/19 01/26/20 Calvin Rasmussen MD [address] [place] [address] PCP - General 01/27/20 Jessica Cabezas CNM [address] [place] [address] Historical LMR Provider 02/12/17 Bonny Mcclendon NP [address] [place] [address] Historical LMR Provider 02/12/17 2 Hernandez Zarate MD [address] [place] [address] [email or web address] Historical LMR Provider 02/12/17 documented as of this encounter Additional Source Comments The information contained in this document represents components of the legal health record. It is not the complete legal health record.[facility]
--- OUTSIDE RECORDS SUMMARY | 2025-01-22 12:33 | XMS_ITS | Encounter Summary ---
Author Organization [facility] Address [address] [place] [address] [place] [address] Phone Care Team Providers Care Bricklayer Helper Name Role Phone CabezasJessica Jose CUELLAR Unavailable [phone] Bonny Mcclendon NP Unavailable [phone] Hernandez Zarate MD Unavailable [phone] Shefali Iyer PA-C Primary Care Provider + Calvin Rasmussen MD Primary Care Provider Encounter Details Date Type Department Care Team (Late st Contact Info) Description 01/09/2020 Procedure Pass [facility], [address] [address] Social History Tobacco Use Types Packs/Day Years [...] Description 01/24/2025 10:30 AM EDT Office Visit [facility] [address] [place] [address] 3rd Floor, [address] [place] [address] Zay Beckett MD 22 [facility], [address] [place] [address] [email or web address] documented as of this encounter Visit Diagnoses Not on filedocumented in this encounter Additional Health Concerns Infection Onset Date Last Indicated Resolved Time CoV-Risk 03/27/2021 03/28/2021 04/07/2021 1:22 AM EST documented as of this encounter Care Teams Bricklayer Helper Relationship Specialty Start Date End Date Shefali Iyer PA-C [address] [place] [address] PCP - General Unknown Provider Specialty 01/03/19 01/26/20 Calvin Rasmussen MD [address] [place] [address] PCP - General 01/27/20 Jessica Cabezas CNM [address] [place] [address] Historical LMR Provider 02/12/17 Bonny Mcclendon NP [address] [place] [address] Historical LMR Provider 02/12/17 2 Hernandez Zarate MD [address] [place] [address] [email or web address] Historical LMR Provider 02/12/17 documented as of this encounter Additional Source Comments The information contained in this document represents components of the legal health record. It is not the complete legal health record.[facility]
--- OUTSIDE RECORDS SUMMARY | 2025-01-22 12:33 | XMS_ITS | Encounter Summary ---
Author Organization [facility] Address [address] [place] [address] [place] [address] Phone Care Team Providers Care Rural Route Mail Carrier Name Role Phone Elsy Cabezasara Jose CUELLAR Unavailable [phone] Hernandez Zarate MD Unavailable [phone] Calvin Rasmussen MD Primary Care Provider Encounter Details Date Type Department Care Team (Late st Contact Info) Description 02/26/2023 Procedure Pass [facility], [facility] [address] [place] [address] Social History Tobacco Use Types Packs/Day Years [...] Description 01/24/2025 10:30 AM EDT Office Visit [facility] 22 [facility] 3rd Floor, [address] [place] [address] Zay Beckett MD 22 [facility], [address] [place] [address] [email or web address] documented as of this encounter Visit Diagnoses Not on filedocumented in this encounter Care Teams Rural Route Mail Carrier Relationship Specialty Start Date End Date Calvin Rasmussen MD [address] [place] [address] PCP - General 01/27/20 Jesscia Cabezas CNM [address] [place] [address] Historical LMR Provider 02/12/17 Hernandez Zarate MD [address] [address] [email or web address] Historical LMR Provider 02/12/17 documented as of this encounter Additional Source Comments The information contained in this document represents components of the legal health record. It is not the complete legal health record.[facility]
--- OUTSIDE RECORDS SUMMARY | 2025-01-22 12:33 | XMS_ITS | Encounter Summary ---
Author Organization [facility] Address [address] [facility] [address] [place] [address] Phone Care Team Providers Care Shipping Weigher Name Role Phone Jessica Cabezas ALISA Unavailable [phone] Hernandez Zarate MD Unavailable [phone] Calvin Rasmussen MD Primary Care Provider Encounter Details Date Type Department Care Team (Late st Contact Info) Description 01/08/2022 Procedure Pass [facility], [address] [address] Social History Tobacco Use Types Packs/Day Years [...] Description 01/24/2025 10:30 AM EDT Office Visit [facility] [address] [place] [address] 3rd Floor, [address] [place] [address] Zay Beckett MD 22 [facility], [address] [address] [email or web address] documented as of this encounter Visit Diagnoses Not on filedocumented in this encounter Care Teams Shipping Weigher Relationship Specialty Start Date End Date Calvin Rasmussen MD [address] [place] [address] PCP - General 01/27/20 Jessica Cabezas CNM 30 [place] [address] Historical LMR Provider 02/12/17 Hernandez Zarate MD [address] [address] [email or web address] Historical LMR Provider 02/12/17 documented as of this encounter Additional Source Comments The information contained in this document represents components of the legal health record. It is not the complete legal health record.[facility]
--- OUTSIDE RECORDS SUMMARY | 2025-01-22 12:33 | XMS_ITS | Encounter Summary ---
Author Organization [facility] Address [address] [facility] [address] [place] [address] Phone Care Team Providers Care Curriculum Development Manager Name Role Phone Jessica Cabezas Jose CUELLAR Unavailable [phone] Bonny Mcclendon NP Unavailable [phone] Hernandez Zarate MD Unavailable [phone] Calvin Rasmussen MD Primary Care Provider Encounter Details Date Type Department Care Team (Late st Contact Info) Description 01/09/2021 Ancillary Orders Virtual Department 30 [place] [address] Calvin Rasmussen MD [address] [place] [address] [address] [place] [phone] Breast screening Social History Tobacco Use Types [...] Description 01/24/2025 10:30 AM EDT Office Visit [facility] [address] [place] [address] 3rd Floor, [address] [place] [address] Zay Beckett MD 22 [facility], [address] [place] [address] [email or web address] documented as of this encounter Results * BI MAMMOGRAM SCREENING WITH TOMOSYNTHESIS WITH CAD (BILATERAL) (04/08/2021 1:06 PM EST) Anatomical Region Laterality Modality Breast Left, Breast Right, Breast Bilateral Bila teral Mammography 04/08/2021 1:08 PM EST Impressions 04/08/2021 1:12 PM EST No mammographic evidence of malignancy. Recommend routine annual surveillance. BI-RADS CATEGORY: 2 - Benign finding. DENSITY: The breast tissue is heterogeneously dense, which could obscure a lesion on mammography. Narrative 04/08/2021 1:12 PM EST 70-year-old female with no current breast symptoms. Comparison made to previous on 04/05/2020 and 03/30/2017. Interpretation made in conjunction with computer-aided detection and tomosynthesis. The breasts are heterogeneously dense, which may obscure small masses. Stable bilateral nodular nodularity and benign scattered calcifications. There are no suspicious masses, areas of architectural distortion, or suspicious clusters of microcalcifications. Procedure Note Zain Huang MD - 04/08/2021 70-year-old female with no current breast symptoms. Comparison made toprevious on 04/05/2020 and 03/30/2017. Interpretation made in conjunctionwith computer-aided detection and tomosynthesis. The breasts are heterogeneously dense, which may obscure small masses.Stable bilateral nodular nodularity and benign scattered calcifications. There are no suspicious masses, areas of architectural distortion, orsuspicious clusters of microcalcifications. IMPRESSION: No mammographic evidence of malignancy. Recommend routine annualsurveillance. BI-RADS CATEGORY: 2 - Benign finding. DENSITY: The breast tissue is heterogeneously dense, which could obscurea lesion on mammography. Calvin Rasmussen MD IMG MG EXAMS Final R esult documented in this encounter Visit Diagnoses Diagnosis Breast screening Breast screening, unspecified Breast screening Breast screening, unspecified documented in this encounter Additional Health Concerns Infection Onset Date Last Indicated Resolved Time CoV-Risk 03/27/2021 03/28/2021 04/07/2021 1:22 AM EST documented as of this encounter Care Teams Curriculum Development Manager Relationship Specialty Start Date End Date Calvin Rasmussen MD [address] [place] [address] PCP - General 01/27/20 Jessica Cabezas CNM [address] [place] [address] Historical LMR Provider 02/12/17 Bonny Mcclendon NP [address] [place] [address] Historical LMR Provider 02/12/17 2 Hernandez Zarate MD [address] [place] [address] [email or web address] Historical LMR Provider 02/12/17 documented as of this encounter Additional Source Comments The information contained in this document represents components of the legal health record. It is not the complete legal health record.[facility]
--- OUTSIDE RECORDS SUMMARY | 2025-01-22 12:33 | XMS_ITS | Encounter Summary ---
Author Organization [facility] Address [address] [place] [address] [place] [address] Phone Care Team Providers Care Certified Medical Dosimetrist Name Role Phone Jessica Cabezas Jose CUELLAR Unavailable [phone] Bonny Mcclendon NP Unavailable [phone] Hernandez Zarate MD Unavailable [phone] Calvin Rasmussen MD Primary Care Provider Encounter Details Date Type Department Care Team (Late st Contact Info) Description 01/09/2021 Procedure Pass [facility], [address] [id number] Social History Tobacco Use Types Packs/Day Years [...] Description 01/24/2025 10:30 AM EDT Office Visit [facility] [address] [place] [address] 3rd Floor, [address] [place], [place] [phone] Zay Beckett MD 22 [facility], [address] [place] [address] [email or web address] documented as of this encounter Visit Diagnoses Not on filedocumented in this encounter Additional Health Concerns Infection Onset Date Last Indicated Resolved Time CoV-Risk 03/27/2021 03/28/2021 04/07/2021 1:22 AM EST documented as of this encounter Care Teams Certified Medical Dosimetrist Relationship Specialty Start Date End Date Calvin Rasmussen MD [address] [place] [address] PCP - General 01/27/20 Jessica Cabezas CNM [address] [place] [address] Historical LMR Provider 02/12/17 Bonny Mcclendon MEDICAL CLAIMS ANALYST [address] [place] [address] Historical LMR Provider 02/12/17 2 Hernandez Zarate MD [address] [place] [address] [email or web address] Historical LMR Provider 02/12/17 documented as of this encounter Additional Source Comments The information contained in this document represents components of the legal health record. It is not the complete legal health record.[facility]
--- OUTSIDE RECORDS SUMMARY | 2025-01-22 12:33 | XMS_ITS | Clinical Summary ---
Author Organization [facility] Address [address] [place] [address] Phone Care Team Providers Care Computer Aided Design Designer Name Role Phone Raulito Jessica Jose CUELLAR Unavailable [phone] Hernandez Zarate MD Unavailable [phone] Calvin Rasmussen MD Primary Care Provider Allergies Active Allergy Reactions Criticality Noted Date Comments Animal Dander Cough,Itching,Wheezing 04/27/1991 Mold Cough,Sneezing 04/27/1991 Pollen, Micronized Cough,Fatigue,Wheezing Low 04/27 Medications multivitamins with iron-folic acid (CENTRUM COMPLETE) 18-400 mg-mcg Tab Take 1 tablet by mouth daily. Active cholecalcifero l (VITAMIN D3) 2,000 unit capsule Take 2,000 Units by mouth daily. Active glucosam/chond /hyalu/CF borate (MOVE FREE JOINT HEALTH ORAL) Take by mouth. Ac tive naproxen (NAPROSYN) 500 MG tablet Take 1 tablet (500 mg total) by mouth 2 (two) times a day for 3 days. Then twice daily as needed for pain, inflammation 20 tablet 2 Active azithromycin (ZITHROMAX) 250 MG tablet Take 1 tablet (250 mg total) by mouth as needed. 7 tablet 4 4 Active Additional Information Patient not taking.Reported on 12/19/2024 predniSONE (DELTASONE) 10 MG tablet Take 10 mg by mouth as needed. Active albuterol 90 mcg/actuation inhaler Inhale 2 puffs into the lungs every 4 (four) hours as needed for wheezing. 2 puffs as needed Inhalation every 4 hrs 18 g 11 4 Active budesonide (PULMICORT FLEXHALER) 180 mcg/actuation inhaler Inhale 1 puff into the lungs 2 (two) times a day. 2 each 3 4 Active Additional Information Patient not taking.Reported on 09/21/2024 albuterol 90 mcg/actuation inhaler Inhale 2 puffs into the lungs every 4 (four) hours as needed for wheezing or shortness of breath/dyspnea. 18 g 11 5 Active predniSONE (DELTASONE) 10 MG tablet 4 pills for 3 days, then 3 pills for 3 days, then 2 pills for 3 days, then 1 pill for 3 days, then stop 40 tablet 6 5 Active fluticasone propionate (FLOVENT HFA) 110 mcg/actuation inhaler Inhale 2 puffs into the lungs 2 (two) times a day. 12 g 11 5 Active amoxicillin-cl avulanate (AUGMENTIN) 875-125 mg per tablet Take 1 tablet (875 mg of amoxicillin total) by mouth 2 (two) times a day for 10 days. Take w food, yogurt, probiotics. Finish all. 20 tablet 5 12/30/19 25 Active Problems Problem Noted Date Diagnosed Date Asthma 02/12/2022 Encounters Date Type Department Care Team Description 12/19/2024 2:10 PM EDT Office Visit [facility] at [address] [address] Sheree Garcia, RAY Multiple abrasions (Primary Dx); Cellulitis of left lower extremity from Last 3 Months Immunizations Immunization Administration Dates Next Due COVID-19 (Pre-02/16) Pfizer Vaccine, mRNA, PF 07/11/2020 INFLUENZA, SPLIT VIRUS, TRIV ALENT W/ PRESERVATIVE IM 01/31/2016 Influenza High-Dose Quadriva lent Preservative Free IM 01/01/2022,12/30/2020 Influenza High-Dose Trivalen t Preservative Free IM 12/11/2019,12/31/2018,01/20/2018,12/26,02/18/2017 Pneumococcal conjugate PCV13 11/09/2014 Pneumococcal conjugate PCV20 01/09/2023 Pneumococcal polysaccharide PPSV23 10/22,08/05/2016,05/09/2016,01/19 RSV Vaccine (bivalent) 02/03/2023 Td (adult) 5 Lf Tetanus Toxo id, PF, Adsorbed 11/30/2018 Tdap 12/19/2024,03/08/2019 Zoster recombinant 07/01/2020,05/08/2020 Family History Medical History Relation Comments Heart disease Father Other Maternal Grandmother Old age Hypertension Mother Kidney failure Mother Vasculitis Mother Other Paternal Grandfather Brain injur y s/p train accident Other Paternal Grandmother Old age Breast cancer Neg Hx Relation Status Comments Father Maternal Grandmother Mother Paternal Grandfather Paternal Grandmother Social History Tobacco Use Types Packs/Day Years Used Date Smoking Tobacco: Never Passive Smoke Exposure: Never Smokeless Tobacco: Never Tobacco Cessation:Counseling Given: Not Answered Alcohol Use Standard Drinks/Week Comments Not Currently [...] Orientation Straight 06/14/2021 12 :24 PM EST Last Filed Vital Signs Vital Sign Reading Time Taken Comments Blood Pressure 129/85 12/19/2024 2:39 PM EDT Pulse 98 12/19/2024 2:39 PM EDT Temperature 37.2 C (99 F) 12/19/2024 2:39 PM EDT Respiratory Rate 16 12/19/2024 2:39 PM EDT Oxygen Saturation 97% 12/19/2024 2:39 PM EDT Inhaled Oxygen Concentration - - Weight 59 kg (130 lb) 12/19/2024 2:39 PM EDT Height 160 cm (5' 2.99 ) 09/21/2024 4:13 PM EDT Body Mass Index 23.03 09/21/2024 4:13 PM EDT Plan of Treatment Upcoming Encounters Date Type Department Care Team (Late st Contact Info) Description 01/24/2025 10:30 AM EDT Office Visit [facility] [address] [place] [address] 3rd Floor, [address] [place] [address] Zay Beckett MD 22 [facility], [address] [place] [address] [email or web address] Due Date Last Done Comments DEPRESSION SCREENING 1961 HEPATITIS C SCREENING 11/23/1967 COLOGUARD 1994 COLONOSCOPY 1994 COLORECTAL CANCER SCREENING 1994 FIT TEST 1994 FOBT 1994 SIGMOIDOSCOPY 1994 VIRTUAL COLONOSCOPY 1994 OSTEOPOROSIS SCREENING INITIAL (ONE-TIME) 2014 INFLUENZA VACCINE (#1) 2024 , 01/09/2023, 01/01/2022, Additional history exists LIPID PANEL 10/11/2025 10/11/2020 Adult Td,Tdap Booster 12/19/2034 12/19/2024 , 03/08/2019, 11/30/2018 ZOSTER VACCINES Completed 07/01/2020, 05/08/2020 PNEUMOCOCCAL VACCINES (50+ years) Completed 01/09/2023, 10/22/2021, 08/05/2016, Additional history exists RSV VACCINE Completed 02/03/2023 COVID-19 VACCINE Completed 08/17/2024, 01/2024, 07/06/2023, Additional history exists SMOKING STATUS SCREENING (Once After 26 Yrs) Completed 12/19/2024 HEPATITIS A VACCINES Aged Out No long er eligible based on patient's age to complete this topic HIB VACCINES Aged Out No longer eligi ble based on patient's age to complete this topic MENINGOCOCCAL VACCINES (ACWY) Aged Out No longer eligible based on patient's age to complete this topic MENINGOCOCCAL VACCINES (B) Aged Out N o longer eligible based on patient's age to complete this topic Medical Devices Not on file Procedures Procedure Name Priority Date/Time Associated Diagnosis Comments LIPID PANEL Routine 10/11/2020 3:52 PM EDT Routine general medical examination at a health care facility from Last 3 Months or Most Recently Relevant to Health Maintenance Results * (ABNORMAL) Lipid panel (10/11/2020 3:52 PM EDT) HDL 100 mg/dL [facility] Comment: Interpretation <40 mg/dL: Low HDL cholesterol (major risk factor for CHD) Greater than or equal to 60 mg/dL: High HDL cholesterol ( negative risk factor for CHD) HDL - cholesterol is affected by a number of factors, e.g. smoking, excerise, hormones, sex and age. CHOLESTEROL 228 0 - 240 mg/dL [facility] TRIGLYCERIDES 82 30 - 160 mg/dL [facility] LDL 112 50 - 129 mg/dL [facility] Comment: LDL levels in terms of risk for coronary heart disease: <100 mg/dL: Optimal 100-129 mg/dL: Near or above optimal 130-159 mg/dL: Borderline high 160-189 mg/dL: High >190 mg/dL: Very High CARDIAC RISK RATIO 2.3(L) 3.3 - 4.4 C [facility] Blood 10/11/2020 3:52 PM EDT 10/11/2020 3:56 PM EDT us Epifanio Yoder MD LAB BLOOD ORDERABLES Final Result [facility] [address] [place] [address] from Last 3 Months or Most Recently Relevant to Health Maintenance Insurance [employer] MEDICARE HMO REPLACEMENT MEDICARE HMO REPLACEMENT [employer] Care Teams Computer Aided Design Designer Relationship Specialty Start Date End Date Calvin Rasmussen MD [address] [place] [address] PCP - General 01/27/20 Jessica Cabezas CNM [address] [place] [address] Historical LMR Provider 02/12/17 Hernandez Zarate MD [address] [place] [address] [email or web address] Historical LMR Provider 02/12/17 Additional Source Comments The information contained in this document represents components of the legal health record. It is not the complete legal health record.[facility]
--- OUTSIDE RECORDS SUMMARY | 2025-01-22 12:33 | XMS_ITS | Encounter Summary ---
Author Organization [facility] Address [address] [place] [address] [place] [address] Phone Care Team Providers Care Hard Hat Diver Name Role Phone Elsy Cabezasara Jose CUELLAR Unavailable [phone] Bonny Mcclendon NP Unavailable [phone] Hernandez Zarate MD Unavailable [phone] Calvin Rasmussen MD Primary Care Provider Shefali Iyer PA-C Primary Care Provider + Calvin Rasmussen MD Primary Care Provider Encounter Details Date Type Department Care Team (Latest Contact Info) Description 12/07/2018 Transcribe Orders [facility] [address] [place] [address] Daisha Lawson MD [address] [place] [address], [address] [id number] Hypogammaglobulinemia (Primary Dx) Social History Tobacco Use [...] Description 01/24/2025 10:30 AM EDT Office Visit [facility] [address] [place] [address] 3rd Floor, [address] [place] [address] Zay Beckett MD 22 [facility], [address] [place] [address] [email or web address] documented as of this encounter Results * Immunoglobulin E, total (12/07/2018 2:50 PM EDT) IGE 6.4 <=214 kU/L [facility] Blood 12/07/2018 2:5 0 PM EDT 12/07/2018 2:56 PM EDT us Daisha Lawson MD LAB BLOOD ORDERABLES Final Result Performing Organization Address [facility]/ZIP Co de Phone Number [facility] [address] [address] [place] [address] * (ABNORMAL) Immunoglobulin G (12/07/2018 2:50 PM EDT) [facility] IMMUNOGLOBULIN G 591(L) 700 - 1,600 mg/dL [facility] Blood 12/07/2018 2:50 PM EDT 12/07/2018 2:56 PM EDT Daisha Lawson MD LAB BLOOD ORDERABLES Final Result [facility] [address] [place] [address] * (ABNORMAL) Immunoglobulin M (12/07/2018 2:50 PM EDT) Pathologist [facility] IMMUNOGLOBULIN M 33(L) 40 - 230 mg/dL [facility] Blood 12/07/2018 2:50 PM EDT 12/07/2018 2:56 PM EDT Daisha Lawson MD LAB BLOOD ORDERABLES Final Result [address] [address] * Immunoglobulin A (12/07/2018 2:50 PM EDT) Pathologist [facility] IgA 167 70 - 400 mg/dL [facility] Blood 12/07/2018 2:50 PM EDT 12/07/2018 2:56 PM EDT Daisha Lawson MD LAB BLOOD ORDERABLES Final Result Performing Organization Address [facility] Co de Phone Number [address] [address] * (ABNORMAL) IgG subclasses (12/07/2018 2:50 PM EDT) [facility] IGG 1 282(L) 341 - 894 mg/dL [facility]PATH [address] IGG 2 200 171 - 632 mg/dl [facility]PATH [address] DR IGG 3 22.0 18.4 - 106.0 mg/dl [facility]PATH [address] IGG 4 10.0 2.4 - 121.0 mg/dl [facility]PATH [address] TOTAL IGG 613(L) 767 - 1,590 mg/dl [facility] Blood 12/07/2018 2:50 PM EDT 12/07/2018 2:56 PM EDT Daisha Lawson MD LAB BLOOD ORDERABLES Final Result Performing Organization Address [facility] Co de Phone Number [facility] [address] [place] [address] * (ABNORMAL) CBC and differential (12/07/2018 2:50 PM EDT) [facility] WBC 5.68 3.40 - 11.20 K/uL [facility] RBC 4.21 3.80 - 4.80 M/uL [facility] HGB 13.6 12.0 - 15.0 g/dL [facility] HCT 40.9 36.0 - 46.0 % [facility] PLT 286 130 - 400 K/uL [facility] MCV 97.1 79.0 - 98.0 fL [facility] MCH 32.3 27.0 - 34.8 pg [facility] MCHC 33.3 31.5 - 36.0 g/dL [facility] RDW 12.5 10.8 - 14.6 % [facility] MPV 9.0(L) 9.4 - 12.4 fl [facility] NRBC 0.00 0.00 /100 WBCs [facility] ABSOLUTE NRBC 0.00 0.00 K/uL [facility] DIFF METHOD Auto [facility] NEUTS 56.2 45.30 - 77.70 % [facility] LYMPHS 30.1 12.30 - 39.70 % [facility] MONOS 8.1 4.10 - 12.80 % [facility] EOS 4.9 0 - 7.2 % [facility] BASOS 0.5 0 - 2.80 % [facility] Granulocytes, immature (%) 0.2 0.0 - 0.9 % [facility] ABSOLUTE NEUTS 3.19 1.40 - 7.70 K/uL [facility] ABSOLUTE LYMPHS 1.71 0.60 - 3.20 K/uL [facility] ABSOLUTE MONOS 0.46 0.11 - 0.59 K/uL [facility] ABSOLUTE EOS 0.28 0.01 - 0.50 K/uL [facility] ABSOLUTE BASOS 0.03 0.00 - 0.08 K/uL [facility] Granulocytes, immature 0.01 0.00 - 0.05 K/uL [facility] Blood 12/07/2018 2:50 PM EDT 12/07/2018 2:56 PM EDT us Daisha Lawson MD LAB BLOOD ORDERABLES Final Result [facility] [address] [place] [address] documented in this encounter Visit Diagnoses Diagnosis Hypogammaglobulinemia- Primary Unspecified hypogammaglobulinemia documented in this encounter Additional Health Concerns Infection Onset Date Last Indicated Resolved Time CoV-Risk 03/27/2021 03/28/2021 04/07/2021 1:22 AM EST documented as of this encounter Care Teams Hard Hat Diver Relationship Specialty Start Date End Date Calvin Rasmussen MD [address] [place] [address] PCP - General 10/22/18 01/02/19 Shefali Iyer PA-C [address] [place] [address] PCP - General Unknown Provider Specialty 01/03/19 01/26/20 Calvin Rasmussen MD [address] [place] [address] PCP - General 01/27/20 Jessica Cabezas CNM [address] [place] [address] Historical LMR Provider 02/12/17 Bonny Mcclendon ANESTHESIOLOGY TEACHER [address] [place] [address] Historical LMR Provider 02/12/17 2 Hernandez Zarate MD [address] [place] [address] [email or web address] Historical LMR Provider 02/12/17 documented as of this encounter Additional Source Comments The information contained in this document represents components of the legal health record. It is not the complete legal health record.[facility]
--- OUTSIDE RECORDS SUMMARY | 2025-01-22 12:33 | XMS_ITS | Encounter Summary ---
Author Organization [facility] Address [address] [place] [address] [place] [address] Phone Care Team Providers Care Box Car Washer Name Role Phone CabezasJessica Jose CUELLAR Unavailable [phone] Bonny Mcclendon NP Unavailable [phone] Hernandez Zarate MD Unavailable [phone] Neha Courtney MD Primary Care Provider [phone] Monica Albrecht MD, MPH Primary Care Provid er Unknown, Unknown Primary Care Provider Calvin Sommers MD Primary Care Provider Shefali IyerC Primary Care Provider + Calvin Rasmussen MD Primary Care Provider Encounter Details Date Type Department Care Team (Latest Contact Info) Description 07/29/2017 Transcribe Orders [facility] [address] [place] [address] Daisha Lawson MD [address] [place] [address], [address] [place] [address] Hypogammaglobulinemia (Primary Dx) Social History [...] Description 01/24/2025 10:30 AM EDT Office Visit [facility] [address] [place] [address] 3rd Floor, [address] [place] [address] Zay Beckett MD 22 [facility], [address] [place] [address] [email or web address] documented as of this encounter Results * (ABNORMAL) IgG subclasses (07/29/2017 11:05 AM EDT) IGG 1 296(L) 341 - 894 mg/dL [facility] DPT OF LAB MED AND PAT+ IGG 2 229 171 - 632 mg/dl [facility] DPT OF LAB MED AND PAT+ IGG 3 27.2 18.4 - 106.0 mg/dl [facility] DPT OF LAB MED AND PAT+ IGG 4 14.3 2.4 - 121.0 mg/dl [facility] DPT OF LAB MED AND PAT+ TOTAL IGG 609(L) 767 - 1,590 mg/dl [facility] DPT OF LAB MED AND PAT+ Blood 07/29/2017 11:0 5 AM EDT 07/29/2017 12:00 PM EDT us Daisha Lawson MD LAB BLOOD ORDERABLES Final Result [facility] DPT OF LAB MED AND PAT+ [address] [place] [address] * Immunoglobulin M (07/29/2017 11:05 AM EDT) IMMUNOGLOBULIN M 43 40 - 230 mg/dL [facility] Blood 07/29/2017 11:0 5 AM EDT 07/29/2017 11:59 AM EDT us Daisha Lawson MD LAB BLOOD ORDERABLES Final Result [address] [address] * (ABNORMAL) Immunoglobulin G (07/29/2017 11:05 AM EDT) IMMUNOGLOBULIN G 597(L) 700 - 1,600 mg/dL [facility] Blood 07/29/2017 11:0 5 AM EDT 07/29/2017 11:59 AM EDT us Daisha Lawson MD LAB BLOOD ORDERABLES Final Result Performing Organization Address [facility]/ZIP Co de Phone Number [address] [address] * Immunoglobulin A (07/29/2017 11:05 AM EDT) IgA 187 70 - 400 mg/dL [facility] Blood 07/29/2017 11:0 5 AM EDT 07/29/2017 11:59 AM EDT Daisha Lawson MD LAB BLOOD ORDERABLES Final Result Performing Organization Address [facility] Co de Phone Number [address] [address] * (ABNORMAL) CBC and differential (07/29/2017 11:05 AM EDT) WBC 6.23 3.40 - 11.20 K/uL [facility] RBC 4.12 3.80 - 4.80 M/uL [facility] HGB 13.3 12.0 - 15.0 g/dL [facility] HCT 40.3 36.0 - 46.0 % [facility] PLT 350 130 - 400 K/uL [facility] MCV 97.8 79.0 - 98.0 fL [facility] MCH 32.3 27.0 - 34.8 pg [facility] MCHC 33.0 31.5 - 36.0 g/dL [facility] RDW 12.8 10.8 - 14.6 % [facility] MPV 8.7(L) 9.4 - 12.4 fl [facility] NRBC 0.00 /100 WBCs [facility] ABSOLUTE NRBC 0.00 K/uL [facility] DIFF METHOD Auto [facility] NEUTS 58.6 45.30 - 77.70 % [facility] LYMPHS 26.6 12.30 - 39.70 % [facility] MONOS 8.8 4.10 - 12.80 % [facility] EOS 4.8 0 - 7.2 % [facility] BASOS 1.0 0 - 2.80 % [facility] Granulocytes, immature (%) 0.2 0.0 - 0.9 % [facility] ABSOLUTE NEUTS 3.65 1.40 - 7.70 K/uL [facility] ABSOLUTE LYMPHS 1.66 0.60 - 3.20 K/uL [facility] ABSOLUTE MONOS 0.55 0.11 - 0.59 K/uL [facility] ABSOLUTE EOS 0.30 0.01 - 0.50 K/uL [facility] ABSOLUTE BASOS 0.06 0.00 - 0.08 K/uL [facility] Granulocytes, immature 0.01 0.00 - 0.05 K/uL [facility] Blood 07/29/2017 11:0 5 AM EDT 07/29/2017 11:59 AM EDT us Daisha Lawson MD LAB BLOOD ORDERABLES Final Result Performing Organization Address City/State/[facility] Co de Phone Number [address] [address] documented in this encounter Visit Diagnoses Diagnosis Hypogammaglobulinemia- Primary Unspecified hypogammaglobulinemia documented in this encounter Additional Health Concerns Infection Onset Date Last Indicated Resolved Time CoV-Risk 03/27/2021 03/28/2021 04/07/2021 1:22 AM EST documented as of this encounter Care Teams Box Car Washer Relationship Specialty Start Date End Date Neha Courtney MD [address] [place] [address] PCP - General Internal Medicine 03/30/17 03/30/18 Monica Albrecht MD, MPH [address] [address] [email or web address] PCP - General Family Medicine 03/31/18 10/20/18 Unknown, Unknown, [address] [address] PCP - General 10/21/18 10/21/18 Calvin Rasmussen MD [address] [place] [address] PCP - General 10/22/18 01/02/19 Shefali Iyer PA-C [address] [place] [address] PCP - General Unknown Provider Specialty 01/03/19 01/26/20 Calvin Rasmussen MD [address] [place] [address] PCP - General 01/27/20 Jessica Cabezas CNM [address] [place] [address] Historical LMR Provider 02/12/17 Bonny Mcclendon RUG MEASURER [address] [place] [address] Historical LMR Provider 02/12/17 2 Hernandez Zarate MD [address] [place] [address] [email or web address] Historical LMR Provider 02/12/17 documented as of this encounter Additional Source Comments The information contained in this document represents components of the legal health record. It is not the complete legal health record.[facility]
--- OUTSIDE RECORDS SUMMARY | 2025-01-22 12:33 | XMS_ITS | Encounter Summary ---
Author Organization [facility] Address [address] [place] [address] Phone Care Team Providers Care Eyelet Row Marker Name Role Phone Jessica Cabezas Jose CUELLAR Unavailable [phone] Bonny Mcclendon NP Unavailable [phone] Hernandez Zarate MD Unavailable [phone] Calvin Rasmussen MD Primary Care Provider Encounter Details Date Type Department Care Team (Latest Contact Info) Description 03/27/2021 Transcribe Orders Virtual Department [address] [place] [address] Ezio Ann MD [address] [place] [address] [email or web address] Encounter for laboratory testing for COVID-19 virus (Primary Dx) Social History Tobacco Use Types [...] Description 01/24/2025 10:30 AM EDT Office Visit [facility] [address] [place] [address] 3rd Floor, [address] [place] [address] Zay Beckett MD 22 [facility], [address] [place] [address] [email or web address] documented as of this encounter Results * COVID-19 PCR Order (03/28/2021 9:45 AM EST) COVID Testing Status Specimen received in analyzing lab. Results should be available within 24 to 48 hrs. [facility] Symptomatic? YES [facility] Other 03/28/2021 9:45 AM EST 03/28/2021 10:07 AM EST Ezio Ann MD BODY FLUIDS AND STOOLS ORDER BROOKS Final Result Performing Organization Address City/State/[facility] Co de Phone Number [facility] [address] [place] [address] [facility] [address] [place] [address] documented in this encounter Visit Diagnoses Diagnosis Encounter for laboratory testing for COVID-19 virus- Primary documented in this encounter Additional Health Concerns Infection Onset Date Last Indicated Resolved Time CoV-Risk 03/27/2021 03/28/2021 04/07/2021 1:22 AM EST documented as of this encounter Care Teams Eyelet Row Marker Relationship Specialty Start Date End Date aClvin Rasmussen MD [address] [place] [address] PCP - General 01/27/20 Jessica Cabezas CNM [address] [place] [address] Historical LMR Provider 02/12/17 Bonny Mcclendon NP [address] [place] [address] Historical LMR Provider 02/12/17 2 Hernandez Zarate MD [address] [address] [email or web address] Historical LMR Provider 02/12/17 documented as of this encounter Additional Source Comments The information contained in this document represents components of the legal health record. It is not the complete legal health record.[facility]
[2025-01-22 13:11] LABS: D Dimer High Sensitivity < 150 NG/ML
[2025-01-22 14:22] VITALS: BP 125/72; PULSE 92; RESP 16; TEMP 36.1; O2SAT 95
== END 2025-01-22 14:22 | disposition home or self-care (01) ==
PROVIDERS: Emergency Provider Emergency Medicine; PCP Family Medicine
DX: R07.2 Precordial pain (principal); R07.9 Chest pain, unspecified; J45.909 Unspecified asthma, uncomplicated; Z79.899 Other long term (current) drug therapy
CPT/HCPCS: 36415; 71045; 80053; 83735; 84484; 85025; 85379; 93005; 99283; 99284

== ENCOUNTER → 2025-01-22 11:49 | Outpatient (BNV) | payer MEDICARE, SELFPAY | PROVIDERS: Emergency Provider Emergency Medicine; PCP Family Medicine; Visit Provider Internal Medicine Cardiovascular Disease | DX: I49.1 Atrial premature depolarization (principal) | CPT/HCPCS: 93010 ==

== ENCOUNTER → 2025-01-22 13:50 | Outpatient (BNV) | payer MEDICARE, SELFPAY | PROVIDERS: Emergency Provider Emergency Medicine; PCP Family Medicine; Visit Provider Nuclear Medicine | DX: R07.89 Other chest pain (principal) | CPT/HCPCS: 71045 ==